=== PATIENT | female | born 1995 | race Hispanic/Latino ===

== ENCOUNTER 2021-02-07 10:42 | Emergency (ER) | payer OTHER, SELFPAY ==
--- OUTSIDE RECORDS SUMMARY | 2021-02-07 10:44 | XMS REPORT | Continuity of Care Document ---
:1995 Author Organization [facility] Address [address] [place] [address] Dr. Valenzuela [address] [place] [id number] Care Team Providers Name Role Phone Unavailable Unavailable Unavailable Problems This patient has no known problems. Allergies, Adverse Reactions, Alerts This patient has no known allergies or adverse reactions. Medications This patient has no known medications. Procedures This patient has no known procedures. Results This patient has no known results.
--- NOTE | 2021-02-07 12:24 | EDPHYS ---
Physician Documentation [facility] Name: Esha Augustine Age: 25 yrs Sex: Female : 1995 Arrival Date: 02/07/2021 Time: 10:46 Bed 23 Private MD: [place] Physician Georgi Perez HPI: 02/07 12:22 This 25 yrs old Female presents to ER via Ambulatory with complaints of jmm Headache, Ear Pain. 12:22 The patient presents with pain. Onset: The symptoms/episode began/occurred gradually, 2 jmm day(s) ago. Modifying factors: The symptoms are alleviated by nothing, the symptoms are aggravated by nothing. Associated signs and symptoms: Pertinent positives: sore throat. The patient has not experienced similar symptoms in the past. 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 ROS: 12:22 Constitutional: Negative for fever, chills, and weight loss, Cardiovascular: Negative jmm for chest pain, palpitations, and edema, Respiratory: Negative for shortness of breath, cough, wheezing, and pleuritic chest pain. 12:22 ENT: Positive for ear pain, sore throat. 12:22 Neuro: Positive for headache. 12:22 All other systems are negative. Exam: 12:22 Constitutional: This is a well developed, well nourished patient who is awake, alert, jmm and in no acute distress. Head/Face: atraumatic. Eyes: EOMI, no conjunctival erythema appreciated 12:22 Neck: Trachea midline, Supple Chest/axilla: Normal chest wall appearance and motion. Cardiovascular: Regular rate and rhythm. No edema appreciated Respiratory: Normal respirations, no respiratory distress appreciated Abdomen/GI: Non distended, soft Back: Normal ROM Skin: General appearance color normal MS/ Extremity: Moves all extremities, no obvious deformities appreciated, no edema noted to the lower extremities Neuro: Awake and alert, normal gait Psych: Behavior is normal, Mood is normal, Patient is cooperative and pleasant 12:22 ENT: TM's: erythema, that is moderate, on the right, Posterior pharynx: erythema, that is mild. Vital Signs: 11:25 BP 104 / 59; Pulse 84; Resp 16 S; Temp 97.8(TE); Pulse Ox 99% on R/A; Weight 108.86 kg ca1 (R); Height 5 ft. 4 in. (162.56 cm) (R); Pain 8/10; 11:25 Body Mass Index 41.20 (108.86 kg, 162.56 cm) ca1 MDM: 11:34 Patient medically screened. [facility] 12:23 Data reviewed: vital signs, nurses notes. Data interpreted:. Counseling: I had a rodrigo detailed discussion with the patient and/or guardian regarding: the historical points, exam findings, and any diagnostic results supporting the discharge/admit diagnosis, the need for outpatient follow up, to return to the emergency department if symptoms worsen or persist or if there are any questions or concerns that arise at home. ED course: Patient is alert and non toxic in appearance in the ED. PE consistent with OM. Advised to follow up with OB and otherwise given strict return precautions. Patient understood and agrees with the plan of care. . Administered Medications: No medications were administered Disposition: 02/08 09:38 Co-signature as Attending Physician, Georgi Perez MD I agree with the assessment and [facility] plan of care. Disposition: 02/07/21 12:24 Discharged to Home. Impression: Acute serous otitis media. - Condition is Stable. - Discharge Instructions: Otitis Media, Adult. - Prescriptions for Amoxicillin 875 mg Oral Tablet - take 1 tablet by ORAL route every 12 hours for 10 days; 20 tablet. - Work release form, Medication Reconciliation Form, Thank You Letter, Antibiotic Education, Prescription Opioid Use form. - Follow up: Private Physician; When: 2 - 3 days; Reason: Recheck today's complaints, Continuance of care, Re-evaluation by your physician. Signatures: Georgi Perez MD MD cha Mickail, Joel, PA PA jmm Williams, Irene, RN RN iw Sue Brooks RN RN ca1 Corrections: (The following items were deleted from the chart) 02/07 12:33 12:24 02/07/2021 12:24 Discharged to Home. Impression: Acute serous otitis media. iw Condition is Stable. Forms are Medication Reconciliation Form, Thank You Letter, Antibiotic Education, Prescription Opioid Use. Follow up: Private Physician; When: 2 - 3 days; Reason: Recheck today's complaints, Continuance of care, Re-evaluation by your physician. rodrigo
--- NOTE | 2021-02-07 12:24 | ER ---
Nurse's Notes [facility] Name: Esha Augustine Age: 25 yrs Sex: Female : 1995 Arrival Date: 02/07/2021 Time: 10:46 Bed 23 Private MD: Diagnosis: Acute serous otitis media Presentation: 02/07 11:25 Chief complaint: Patient states: R ear pain started 0300 today. Pain radiates to the R ca1 jaw, R side of the neck, R side face, R side of the head. Denies fever. Coronavirus screen: Client denies travel out of the [place] in the last 14 days. At this time, the client does not indicate any symptoms associated with coronavirus-19. Ebola Screen: Patient negative for fever greater than or equal to 101.5 degrees Fahrenheit, and additional compatible Ebola Virus Disease symptoms Patient denies exposure to infectious person. Patient denies travel to an Ebola-affected area in the 21 days before illness onset. No symptoms or risks identified at this time. Initial Sepsis Screen: Does the patient meet any 2 criteria? No. Patient's initial sepsis screen is negative. Does the patient have a suspected source of infection? No. Patient's initial sepsis screen is negative. Risk Assessment: Do you want to hurt yourself or someone else? Patient reports no desire to harm self or others. Onset of symptoms was February 07, 2021. 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 Vital Signs: 11:25 BP 104 / 59; Pulse 84; Resp 16 S; Temp 97.8(TE); Pulse Ox 99% on R/A; Weight 108.86 kg ca1 (R); Height 5 ft. 4 in. (162.56 cm) (R); Pain 8/10; 11:25 Body Mass Index 41.20 (108.86 kg, 162.56 cm) ca1 ED Course: 10:46 Patient arrived in ED. mr 11:27 Triage completed. ca1 11:28 Arm band placed on right wrist. ca1 11:31 Minesh Parmar PA is PHCP. [facility] 11:31 Georgi Perez MD is Attending Physician. [facility] 12:33 Adilene Brennan, RN is Primary Nurse. iw Administered Medications: No medications were administered Outcome: 12:24 Discharge ordered by . [facility] 12:33 Patient left the ED. iw Signatures: Minesh Parmar PA PA yousif Isabel Green mr Adilene Brennan, RN RN iw Sue Brooks RN RN ca1
[2021-02-07 21:04] VITALS: BP 104/59; TEMP 97.8; O2SAT 99
== END 2021-02-07 12:33 | disposition home or self-care (01) ==
LOC: ER 10:42
DX: H65.01 Acute serous otitis media, right ear (principal)
CPT/HCPCS: 99281

== ENCOUNTER 2022-08-21 08:36 | Emergency (ER) | payer OTHER ==
--- OUTSIDE RECORDS SUMMARY | 2022-08-21 08:40 | XMS REPORT | Continuity of Care Document ---
:1995 Author Organization [facility] t Address [address] [place] [address] Dr. [address]. [address] [place] [address] Care Team Providers Name Role Phone ADALGISA SHAHBAZ A Primary Care Physician Unavailable DONY SADLER Attending Clinician Unavailable ANTHONY MAN Attending Clinician Unavailable Anthony Man MD Attending Clinician MIGEL GUTIERREZ Attending Clinician Unavailable Antonio Qureshi MD Attending Clinician Unavailable Tim Durant Attending Clinician Unavailable Payers Payer Name Policy Type Policy Number Effective Date Expiration Date S aruna [facility] [id number] 2021 00:00:00 Problems Condition Condition Condition Status Onset Resolution Last Treating Co mments Source Name Details Category Date Date Treatment Clinician Date Epigastric Epigastric Disease Active Overview : Univers pain pain 3-07 Formattin ity of 00:00: g of this [place] 00 note Medical might be Branch different from the original. Added automatic ally from request for surgery [id number] Gastroesop Gastroesop Disease Active Overview : Univers hageal hageal 3-07 Formattin ity of reflux reflux 00:00: g of this [place] disease disease 00 note Medical with with might be Branch esophagiti esophagiti different s, s, from the unspecifie unspecifie original. d whether d whether Added hemorrhage hemorrhage automatic ally from request for surgery [id number] Obesity Obesity Disease Active Univers (BMI (BMI 2-23 ity of 30-39.9) 30-39.9) 00:00: Medical Branch Vitamin D Vitamin D Disease Active 2020-11 Uni vers deficiency deficiency 2-16 it y of 00:00: Medical Branch Left Left Disease Active 2020-11 Univers breast breast 1- ity of mass mass 00:00: Medical Branch Biliary Biliary Disease Active Overview: Univ ers colic colic 9-13 Formattin ity of 00:00: g of this note Medical might be Branch different from the original. 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 Reactive Reactive Disease Active Unive rs depression depression 8-17 it y of 00:: Medical Branch Gallstones Gallstones Disease Active U nivers 8-16 ity of 00:00: Medical Branch BMI BMI Disease Active Univers 40.0-44.9, 40.0-44.9, 2-09 it y of adult adult 00:00: [facility] Branch Migraines Migraines Disease Active Uni vers ity of [facility] Allergies, Adverse Reactions, Alerts Allergy Allergy Status Severity Reaction(s) Onset Inactive Treating Comm ents Source Name Type Date Date Clinician No Known DA Active U [facility] Drug 6-02 Allergie 00:00: NO KNOWN Drug Active Univers ALLERGIE Class ity of S [facility] Social History Social Habit Start Date Stop Date Quantity Comments Source History SDOH University o f Alcohol Frequency [place] M edical Branch History SDOH University o f Alcohol Std [place] Medical Drinks Branch History SDNY University o f Alcohol Binge [place] Medic al Branch Exposure to 2022-03-10 2022-03-20 Not sure University of SARS-CoV-2 00:00:00 10:33:00 [facility] (event) Branch Alcohol intake 2022-03-20 2022-03-20 0 /d University of 00:00:00 00:00:00 [facility] Tobacco use and 2021-07-05 2021-07-05 Smokeless tobacco Un iversity of exposure 00:00:00 00:00:00 non-user [facility] Alcohol Comment 2021-07-05 2021-07-05 Occasionally Univers ity of 00:00:00 00:00:00 [facility] Sex Assigned At [birth year] [facility] 00:00:00 00:00:00 Smoking Status Start Date Stop Date Source Unknown if ever smoked [facility] Never smoked tobacco [facility] Medications Ordered Filled Start Stop Current Ordering Indication Dosage Frequency Signature Comments Components Source Medication Medication Date Date Medication? Clinician (SIG) Name Name pantoprazol Yes [id number] 20mg Take 1 Univers e 20 mg EC 8-16 tablet by ity of tablet 00:00: mouth in [place] 00 the Medical morning. Branch Bismuth Yes [id number] 15mL Take 15 mL Univers Subsalicyla 4-04 by mouth 4 it y of te 00:00: ([facility]) [place] (PEPTO-BISM 00 times Medical OL [address]) daily. Branch 525 mg/15 mL suspension clarithromy 0 Yes [id number] 500mg Take 2 Univers kim 250 mg 4-04 tablets by ity of tablet 00:00: mouth 2 [place] (two) Medical times Branch daily. metroNIDAZO 2021-0 Yes [id number] 500mg Take 1 Univers LE 500 mg 4-04 tablet by ity o f tablet 00:00: mouth [place] 00 every 12 Medical (twelve) Branch hours. Bismuth 2021-0 Yes [id number] 15mL Take 15 mL Univers Subsalicyla 4-04 by mouth 4 it y of te 00:00: (four) [place] (PEPTO-BISM 00 times Medical OL MAX ST) daily. Branch 525 mg/15 mL suspension clarithromy 2021-0 Yes [id number] 500mg Take 2 Univers kim 250 mg 4-04 tablets by ity of tablet 00:00: mouth 2 [place] (two) Medical times Branch daily. metroNIDAZO 2-0 Yes [id number] 500mg Take 1 Univers LE 500 mg 4-04 tablet by ity o f tablet 00:00: mouth [place] 00 every 12 Medical (twelve) Branch hours. PANTOPRAZOL 2021-0 Yes [id number] 20mg TAKE 1 Univers E 20 mg EC 3-01 TABLET BY ity of tablet 00:00: MOUTH [place] 00 DAILY Medical Branch PANTOPRAZOL 2021- No [id number] 20mg TAKE 1 Univers E 20 mg EC 3-01 08-16 TABLET BY ity of tablet 00:00: 00:00 MOUTH [place] 00 :00 DAILY Medical Branch Cholecalcif 2020-11 Yes [id number] 1999U Take 1 Univers justin, 2-16 capsule by ity of Vitamin D3, 00:00: mouth (D3-1999) 00 daily. Medical 50 mcg Take with Branch (2,000 food unit) capsule cyclobenzap 2020-11 Yes [id number] 5mg Take 1 Univers rine 5 mg 2-16 tablet by ity o f tablet 00:00: mouth 3 (three) Medical times Branch daily as needed for Muscle Spasms. Cholecalcif 2020-11 Yes [id number] 1999U Take 1 Univers justin, 2-16 capsule by ity of Vitamin D3, 00:00: mouth (D3) 00 daily. Medical 50 mcg Take with Branch (2,000 food unit) capsule cyclobenzap 2020-11 Yes [id number] 5mg Take 1 Univers rine 5 mg 2-16 tablet by ity o f tablet 00:00: mouth 3 (three) Medical times Branch daily as needed for Muscle Spasms. amitriptyli Yes [id number] 10mg Take 1 Univers ne 10 mg 8-10 tablet by ity of tablet 00:00: mouth at [place] bedtime. Medical Branch SUMAtriptan Yes [id number] Take 1 tab Univers 25 mg 8-10 po x 1 ity of tablet 00:00: dose PRN migraine Medical headache, Branch may repeat x 1 dose in 2 hours if needed; Max 2 doses per 24 hours amitriptyli Yes [id number] 10mg Take 1 Univers ne 10 mg 8-10 tablet by ity of tablet 00:00: mouth at [place] bedtime. Medical Branch SUMAtriptan Yes [id number] Take 1 tab Univers 25 mg 8-10 po x 1 ity of tablet 00:00: dose PRN migraine Medical headache, Branch may repeat x 1 dose in 2 hours if needed; Max 2 doses per 24 hours Immunizations Ordered Filled Immunization Date Status Comments Sourc e Immunization Name Name Influenza Virus 2021-11-03 Completed Universit y of Vaccine Quad IM, 00:00:00 [place] Me dical Preserv and ABX Branch Free 6 MO-64 YRS Influenza Virus 2021-11-03 Completed Universit y of Vaccine Quad IM, 00:00:00 [facility] dical Preserv and ABX Branch Free 6 MO-64 YRS SARS-COV-2 COVID-19 2021-06-10 Completed Unive rsity of MODERNA VACCINE 00:00:00 [facility] SARS-COV-2 COVID-19 2021-06-10 Completed Unive rsity of MODERNA VACCINE 00:00:00 [facility] SARS-COV-2 COVID-19 2021-05-13 Completed Unive rsity of MODERNA VACCINE 00:00:00 [facility] SARS-COV-2 COVID-19 2021-05-13 Completed Unive rsity of MODERNA VACCINE 00:00:00 [facility] Influenza Virus 2021-01-04 Completed Universit y of Vaccine Quad .5 mL 00:00:00 [facility] IM 6+ MO Branch Influenza Virus 2021-01-04 Completed Universit y of Vaccine Quad .5 mL 00:00:00 [facility] IM 6+ MO Branch TDAP 2017-10-15 Completed [facility] 00:00:00 [facility] TDAP 2017-10-15 Completed [facility] 00:00:00 [facility] Vital Signs Vital Name Observation Time Observation Value Comments Source Systolic blood 2022-03-20 15:58:00 112 mm[Hg] Univer sity of pressure [facility] Diastolic blood 2022-03-20 15:58:00 74 mm[Hg] Unive rsity of pressure [facility] Heart rate 2022-03-20 15:58:00 80 /min [facility] Body temperature 2022-03-20 15:58:00 36.78 [facility] Respiratory rate 2022-03-20 15:58:00 16 /min [facility] Body height 2022-03-20 15:58:00 162.6 cm [facility] Body weight 2022-03-20 15:58:00 105.416 kg [facility] BMI 2022-03-20 15:58:00 39.89 kg/m2 Universi ty of [facility] Oxygen saturation in 2022-03-20 15:58:00 99 /min University of Arterial blood by [facility] Pulse oximetry Branch Have you Lost Weight 2021-05-02 00:18:32 No Without Trying in the Past 6 Months? Attempted 2021-05-02 00:18:32 N Body Mass Index 2021-05-02 00:18:32 41.5 Height 2021-05-02 00:18:32 162.56\S\64 Pulse Rate 2021-05-02 00:18:32 82 /min Pulse Rate 2021-05-02 00:18:32 82 /min Respiratory Rate 2021-05-02 00:18:32 18 /min Respiratory Rate 2021-05-02 00:18:32 18 /min Respiratory Depth 2021-05-02 00:18:32 Normal /min Respiratory Effort 2021-05-02 00:18:32 Spontaneous /min Respiratory Pattern 2021-05-02 00:18:32 Normal /min Temperature 2021-05-02 00:18:32 36.8\S\98.2 Weight 2021-05-02 00:18:32 802122.353\S\3872 Weight Measurement 2021-05-02 00:18:32 Standing Scale Method Initial DRG Weight: 2021-05-02 00:18:32 0.6411 Working DRG Weight: 2021-05-02 00:18:32 0.6411 Initial DRG Weight: 2021-04-29 15:52:40 0.6411 Working DRG Weight: 2021-04-29 15:52:40 0.6411 Have you Lost Weight 2021-04-29 15:52:40 No Without Trying in the Past 6 Months? Attempted 2021-04-29 15:52:40 N Body Mass Index 2021-04-29 15:52:40 41.5 Height 2021-04-29 15:52:40 162.56\S\64 Pulse Rate 2021-04-29 15:52:40 82 /min Pulse Rate 2021-04-29 15:52:40 82 /min Respiratory Rate 2021-04-29 15:52:40 18 /min Respiratory Rate 2021-04-29 15:52:40 18 /min Respiratory Depth 2021-04-29 15:52:40 Normal /min Respiratory Effort 2021-04-29 15:52:40 Spontaneous /min Respiratory Pattern 2021-04-29 15:52:40 Normal /min Temperature 2021-04-29 15:52:40 36.8\S\98.2 Weight 2021-04-29 15:52:40 357771.353\S\3872 Weight Measurement 2021-04-29 15:52:40 Standing Scale Method Body Mass Index 2021-04-28 10:14:19 41.5 Height 2021-04-28 10:14:19 162.56\S\64 Pulse Rate 2021-04-28 10:14:19 82 /min Pulse Rate 2021-04-28 10:14:19 82 /min Respiratory Rate 2021-04-28 10:14:19 18 /min Respiratory Rate 2021-04-28 10:14:19 18 /min Respiratory Depth 2021-04-28 10:14:19 Normal /min Respiratory Effort 2021-04-28 10:14:19 Spontaneous /min Respiratory Pattern 2021-04-28 10:14:19 Normal /min Temperature 2021-04-28 10:14:19 36.8\S\98.2 Weight 2021-04-28 10:14:19 527602.353\S\3872 Weight Measurement 2021-04-28 10:14:19 Standing Scale Method Initial DRG Weight: 2021-04-28 10:14:19 0.6411 Working DRG Weight: 2021-04-28 10:14:19 0.6411 Have you Lost Weight 2021-04-28 10:14:19 No Without Trying in the Past 6 Months? Attempted 2021-04-28 10:14:19 N Initial DRG Weight: 2021-04-28 06:32:43 0.6411 Working DRG Weight: 2021-04-28 06:32:43 0.6411 Have you Lost Weight 2021-04-28 06:32:43 No Without Trying in the Past 6 Months? Attempted 2021-04-28 06:32:43 N Body Mass Index 2021-04-28 06:32:43 41.5 Height 2021-04-28 06:32:43 162.56\S\64 Respiratory Rate 2021-04-28 06:32:43 18 /min Respiratory Depth 2021-04-28 06:32:43 Normal /min Respiratory Effort 2021-04-28 06:32:43 Spontaneous /min Respiratory Pattern 2021-04-28 06:32:43 Normal /min Weight 2021-04-28 06:32:43 116083.353\S\3872 Weight Measurement 2021-04-28 06:32:43 Standing Scale Method Have you Lost Weight 2021-04-28 00:20:54 No Without Trying in the Past 6 Months? Attempted 2021-04-28 00:20:54 N Body Mass Index 2021-04-28 00:20:54 41.5 Height 2021-04-28 00:20:54 162.56\S\64 Respiratory Rate 2021-04-28 00:20:54 18 /min Respiratory Depth 2021-04-28 00:20:54 Normal /min Respiratory Effort 2021-04-28 00:20:54 Spontaneous /min Respiratory Pattern 2021-04-28 00:20:54 Normal /min Weight 2021-04-28 00:20:54 819285.353\S\3872 Weight Measurement 2021-04-28 00:20:54 Standing Scale Method Initial DRG Weight: 2021-04-28 00:20:53 0.6411 Working DRG Weight: 2021-04-28 00:20:53 0.6411 Have you Lost Weight 2021-04-28 00:19:52 No Without Trying in the Past 6 Months? Attempted 2021-04-28 00:19:52 N Body Mass Index 2021-04-28 00:19:52 41.5 Height 2021-04-28 00:19:52 162.56\S\64 Respiratory Rate 2021-04-28 00:19:52 18 /min Respiratory Depth 2021-04-28 00:19:52 Normal /min Respiratory Effort 2021-04-28 00:19:52 Spontaneous /min Respiratory Pattern 2021-04-28 00:19:52 Normal /min Weight 2021-04-28 00:19:52 746297.353\S\3872 Weight Measurement 2021-04-28 00:19:52 Standing Scale Method Have you Lost Weight 2021-04-27 21:08:37 No Without Trying in the Past 6 Months? Attempted 2021-04-27 21:08:37 N Body Mass Index 2021-04-27 21:08:37 41.5 Height 2021-04-27 21:08:37 162.56\S\64 Respiratory Rate 2021-04-27 21:08:37 18 /min Respiratory Effort 2021-04-27 21:08:37 Spontaneous /min Respiratory Pattern 2021-04-27 21:08:37 Normal /min Weight 2021-04-27 21:08:37 805480.353\S\3872 Weight Measurement 2021-04-27 21:08:37 Standing Scale Method Have you Lost Weight 2021-04-27 18:46:24 No Without Trying in the Past 6 Months? Body Mass Index 2021-04-27 18:46:24 41.5 Height 2021-04-27 18:46:24 162.56\S\64 Respiratory Rate 2021-04-27 18:46:24 18 /min Respiratory Effort 2021-04-27 18:46:24 Spontaneous /min Respiratory Pattern 2021-04-27 18:46:24 Normal /min Weight 2021-04-27 18:46:24 964799.353\S\3872 Weight Measurement 2021-04-27 18:46:24 Standing Scale Method Have you Lost Weight 2021-04-27 08:56:53 No Without Trying in the Past 6 Months? Body Mass Index 2021-04-27 08:56:53 41.5 Height 2021-04-27 08:56:53 162.56\S\64 Respiratory Effort 2021-04-27 08:56:53 Spontaneous /min Respiratory Pattern 2021-04-27 08:56:53 Normal /min Weight 2021-04-27 08:56:53 528742.353\S\3872 Weight Measurement 2021-04-27 08:56:53 Standing Scale Method Have you Lost Weight 2021-04-27 08:54:20 No Without Trying in the Past 6 Months? Respiratory Effort 2021-04-27 08:54:20 Spontaneous /min Respiratory Pattern 2021-04-27 08:54:20 Normal /min WEIGHT 2021-04-27 08:40:00 109.294855 kg HEIGHT 2021-04-27 08:40:00 162.56 cm Procedures This patient has no known procedures. Encounters Start End Encounter Admission Attending Care Care Encounter Source Date/Time Date/Time Type Type Clinicians Facility Department ID 2022-07-19 2022-07-19 Outpatient Sally SADLER DONY [facility] [id number] 2A-20 Univers 10:30:00 10:30:00 [id number] [facility] 2022-07-19 2022-07-19 Outpatient Sally VIKTORIYA [facility] [id number] Univers 10:30:00 10:30:00 [facility] 2022-07-04 2022-07-04 Outpatient Sally MAN [facility] [id number] 2A-20 Univers 16:15:00 16:15:00 ANTHONY [id number] [facility] 2022-07-04 2022-07-04 Outpatient Sally MAN [facility] [id number] Univers 16:15:00 16:15:00 ANTHONY [facility] 2022-06-30 2022-06-30 [facility] [id number] Univers 00:00:00 00:00:00 Anthony WELCH [id number] i [facility] [id number] [id number] Nh dical NAL [facility] Branch [facility] 2022-05-30 2022-05-30 Outpatient Sally GUTIERREZ [facility] [id number] 2A-20 Univers 15:30:00 15:30:00 MIGEL [id number] [facility] 2022-05-30 2022-05-30 [facility] [id number] Univers 15:30:00 15:30:00 MIGEL [facility] 2022-05-23 2022-05-23 Outpatient Sally GUTIERREZ [facility] [id number] 2A-20 Univers 14:15:00 14:15:00 MIGEL [id number] [facility] 2022-05-23 2022-05-23 Outpatient Sally GUTIERREZ [facility] [id number] [facility] 14:15:00 14:15:00 MIGEL cohen [facility] 2022-03-20 2022-03-20 Office Man, [facility] [id number] [facility] 11:00:00 11:28:29 Visit Anthony WELCH [id number] i [facility] [id number] [facility] [id number] Nh dical [address] 2021-05-11 2021-05-11 Telephone [facility] [id number] 00:00:00 00:00:00 Antoniosolomon VALDEZANDERSON [id number] MEDICAL [id number] [facility] [id number] 2021-05-11 2021-05-11 Telephone [facility] [id number] [place] 00:00:00 00:00:00 Antoniosolomon VALDEZEfren [id number] H [facility] MEDICAL [id number] [facility] [id number] 2021-05-03 2021-05-03 Telephone [facility] [id number] 00:00:00 00:00:00 Antonio CRAVEN [id number] MEDICAL [id number] [facility] [id number] 2021-05-03 2021-05-03 Telephone [facility] [id number] [place] 00:00:00 00:00:00 Antonio CRAVEN [id number] H [facility] [id number] [facility] [id number] 2021-04-27 2021-04-27 Outpatient [facility] [id number] [facility] 07:17:00 07:17:00 62 2021-04-27 2021-04-27 Outpatient Elective [place], [facility] [id number] [facility] 07:17:00 07:17:00 Tim 62 Results Test Description Test Time Test Comments Results Result Comments Source Complete Blood Count Auto Diff 2021-04-28 06:20:00 Test Item Value Reference Range Interpretation Comme nts White Blood Count (test code = WBCT) 8.2 x10 3/uL 4.4-10.5 N Red Blood Count (test code = RBC) 3.85 x10 6/uL 3.75-5.20 N Hemoglobin (test code = HGBT) 11.7 g/dL 12.2-14.8 L Hematocrit (test code = HCTT) 34.8 % 36.5-44.4 L Mean Corpuscular Volume (test code = MCV) 90.40 fL 80.00-100.00 N Mean Corpuscular Hemoglobin (test code = MCH) 30.4 pg 27.0-32. 5 N Mean Corpuscular HGB Conc (test code = MCHC) 33.60 g/dL 32.00-37. 50 N RDW Coefficient of Variation (test code = RDWCV) 12.4 % 11.5- 14.5 N Platelet Count (test code = PLTT) 255.0 x10 3/uL 140.0-440.0 N Mean Platelet Volume (test code = MPV) 10.2 fL Immature Granulocytes % (Auto) (test code = IMMGRAN%) 0.4 % 0.0-5.0 N Neutrophils % (Auto) (test code = NE%) 64.0 % 36.0-70.0 N Lymphocytes % (Auto) (test code = LY%) 25.3 % 12.0-44.0 N Monocytes % (Auto) (test code = MO%) 9.0 % 0.0-11.0 N Eosinophils % (Auto) (test code = EO%) 1.2 % 0.0-7.0 N Basophils % (Auto) (test code = BA%) 0.1 % 0.0-2.0 N Immature Granulocytes # (Auto) (test code = IMMGRAN#) 0.03 x10 3/uL Neutrophils # (Auto) (test code = NE#) 5.3 x10 3/uL 1.6-7.4 N Lymphocytes # (Auto) (test code = LY#) 2.08 x10 3/uL 0.50-4.60 N Monocytes # (Auto) (test code = MO#) 0.74 x10 3/uL 0.00-1.20 N Eosinophils # (Auto) (test code = EO#) 0.10 x10 3/uL 0.00-0.74 N Basophils # (Auto) (test code = BA#) 0.01 x10 3/uL 0.00-0.21 N nRBC Abs (test code = NRBCA) 0 nRBC Pct (test code = NRBCP) 0 % Coronavirus PCR, COVID19 [id number] 11:15:00 Test Item Value Reference Range Interpretation Comments Coronavirus PCR, For use under Emergency COVID19 Rapid (test Use Authorization (EUA) code = SARSCOV2) only. Coronavirus PCR, Reference Range: COVID19 Rapid (test Negative code = QTGCCZS50.1) SARS-CoV-2 PCR Result: Negative by PCR (test code = SARS-CoV-2 PCR Result:) COVID-19 Status: AsymptomaticRapid Plasma [id number] 08:35:00 Test Item Value Reference Range Interpretation Comments Rapid Plasma Non-Reactive Non-React RPR Lot: [id number] RPR Exp: Reagin (test code 12-26-2C ontrolsReacti = RPR) ve: ReactiveWea k Reactive: ReactiveNon-ivana ctive: Non-reactive Hepatitis B Surface [id number] 08:35:00 Test Item Value Reference Range Interpretation Comments Hepatitis B Surface Antigen Non-Reactive NonReactive (test code = HBSAG) Complete Blood Count w/o [id number] 08:35:00 Test Item Value Reference Range Interpretation Comments White Blood Count (test code = 8.9 x10 3/uL 4.4-10.5 N WBCT) Red Blood Count (test code = 4.30 x10 6/uL 3.75-5.20 N RBC) Hemoglobin (test code = HGBT) 12.8 g/dL 12.2-14.8 N Hematocrit (test code = HCTT) 37.5 % 36.5-44.4 N Mean Corpuscular Volume (test 87.20 fL 80.00-100.00 N code = MCV) Mean Corpuscular Hemoglobin 29.8 pg 27.0-32.5 N (test code = MCH) Mean Corpuscular HGB Conc 34.10 g/dL 32.00-37.50 N (test code = MCHC) RDW Coefficient of Variation 12.5 % 11.5-14.5 N (test code = RDWCV) Platelet Count (test code = 310.0 x10 3/uL 140.0-440.0 N PLTT) Mean Platelet Volume (test 10.8 fL code = MPV) nRBC Abs (test code = NRBCA) 0 nRBC Pct (test code = NRBCP) 0 %
--- NOTE | 2022-08-21 08:57 | ER ---
Nurse's Notes [facility] Name: Esha Augustine Age: 27 yrs Sex: Female : 1995 Arrival Date: 08/21/2022 Time: 08:39 Bed 10 Private MD: Diagnosis: Other mucopurulent conjunctivitis, right eye;Disease of upper respiratory tract, unspecified Presentation: 08/21 08:44 Chief complaint: Patient states: Woke with right eye swollen shut with discharge, sore jl7 throat and head pressure since this morning. Coronavirus screen: Vaccine status: Patient reports receiving the 2nd dose of the covid vaccine. Ebola Screen: No symptoms or risks identified at this time. Initial Sepsis Screen: Does the patient meet any 2 criteria? No. Patient's initial sepsis screen is negative. Does the patient have a suspected source of infection? No. Patient's initial sepsis screen is negative. Risk Assessment: Do you want to hurt yourself or someone else? Patient reports no desire to harm self or others. Onset of symptoms was August 21, 2022. 08:44 Method Of Arrival: Ambulatory jl7 08:44 Acuity: JUSTYNA 4 jl7 Triage Assessment: 08:46 General: Appears in no apparent distress. uncomfortable, Behavior is calm, cooperative, jl7 appropriate for age. Pain: Complains of pain in face and right eye Pain currently is 8 out of 10 on a pain scale. EENT: Eyes are tearing on right eye Sclera/Cornea are reddened in right eye. Neuro: Level of Consciousness is awake, alert, obeys commands, Oriented to person, place, time, situation. DIFFERENTIAL TESTER: 08:46 LMP 08/21/2022 jl7 Historical: - Allergies: 08:46 No Known Allergies; jl7 - Home Meds: 08:46 None [Active]; jl7 - PMHx: 08:46 None; jl7 - PSHx: 08:46 None; jl7 - Immunization history:: Client reports receiving the 2nd dose of the Covid vaccine. - Social history:: Smoking status: Patient denies any tobacco usage or history of. Screenin:45 Abuse screen: Denies threats or abuse. Denies injuries from another. Nutritional jl7 screening: No deficits noted. Tuberculosis screening: No symptoms or risk factors identified. Fall Risk None identified. Assessment: 08:45 Reassessment: DANI Sanchez in triage assessing pt. 7 09:17 Reassessment: Patient appears in no apparent distress at this time. Patient and/or vg1 family updated on plan of care and expected duration. Pain level reassessed. Patient is alert, oriented x 3, equal unlabored respirations, skin warm/dry/pink. Vital Signs: 08:44 BP 137 / 71; Pulse 66; Resp 17; Temp 98.2; Pulse Ox 100% ; Weight 104.33 kg; Height 5 7 ft. 4 in. (162.56 cm); Pain 8/10; 08:44 Body Mass Index 39.48 (104.33 kg, 162.56 cm) 7 ED Course: 08:39 Patient arrived in ED. 4 08:43 [facility] 7 08:43 Clayton Ashby DO is Attending Physician. 7 08:45 Patient has correct armband on for positive identification. 7 08:45 COVID swab sent to lab. jl7 08:46 Triage completed. jl7 08:46 Arm band placed on right wrist. jl7 09:17 No provider procedures requiring assistance completed. Patient did not have IV access vg1 during this emergency room visit. Administered Medications: No medications were administered Medication: 08:45 VIS not applicable for this client. 7 Outcome: 08:56 Discharge ordered by . 7 09:17 Discharged to home ambulatory. vg1 09:17 Condition: good 09:17 Discharge instructions given to patient, Instructed on discharge instructions, follow up and referral plans. medication usage, Demonstrated understanding of instructions, follow-up care, medications, Prescriptions given X 1. 09:18 Patient left the ED. vg1 Signatures: Roz Gonzalez rg4 Libia Kirkpatrick RN RN jl7 Marie Gonzaelz RN RN vg1 Laura French FNP FNP [facility]
--- NOTE | 2022-08-21 08:57 | EDPHYS ---
Physician Documentation [facility] Name: Esha Augustine Age: 27 yrs Sex: Female : 1995 Arrival Date: 08/21/2022 Time: 08:39 Bed 10 Private MD: ED Physician Clayton Ashby HPI: 08/21 08:52 This 27 yrs old Female presents to ER via Ambulatory with complaints of Eye jh7 Swelling. 08:52 The patient is experiencing burning, matting or discharge, redness, to the right eye. jh7 Onset: The symptoms/episode began/occurred this morning. Associated signs and symptoms: Pertinent positives: runny nose, Sore throat. Patient presents with right eye redness, crusting, and tearing since this morning. Also reports sore throat and congestion. Reports that her daughter had COVID last week.. P[employer]ER: 08:46 LMP 08/21/2022 jl7 Historical: - Allergies: 08:46 No Known Allergies; jl7 - Home Meds: 08:46 None [Active]; jl7 - PMHx: 08:46 None; jl7 - PSHx: 08:46 None; jl7 - Immunization history:: Client reports receiving the 2nd dose of the Covid vaccine. - Social history:: Smoking status: Patient denies any tobacco usage or history of. ROS: 08:52 Constitutional: Negative for fever, chills, and weight loss, ENT: Negative for injury, jh7 pain, and discharge, Neck: Negative for injury, pain, and swelling, Cardiovascular: Negative for chest pain, palpitations, and edema, Respiratory: Negative for shortness of breath, cough, wheezing, and pleuritic chest pain, Back: Negative for injury and pain, Skin: Negative for injury, rash, and discoloration, Neuro: Negative for headache, weakness, numbness, tingling, and seizure. 08:52 Eyes: Positive for itching, matting, redness, tearing, Negative for blurry vision, vision loss, visual disturbance. 08:52 All other systems are negative. Exam: 08:52 Head/Face: Normocephalic, atraumatic. Cardiovascular: Regular rate and rhythm with a jh7 normal S1 and S2. No gallops, murmurs, or rubs. Normal PMI, no JVD. No pulse deficits. Respiratory: Lungs have equal breath sounds bilaterally, clear to auscultation and percussion. No rales, rhonchi or wheezes noted. No increased work of breathing, no retractions or nasal flaring. Abdomen/GI: Soft, non-tender, with normal bowel sounds. No distension or tympany. No guarding or rebound. No evidence of tenderness throughout. Skin: Warm, dry with normal turgor. Normal color with no rashes, no lesions, and no evidence of cellulitis. MS/ Extremity: Pulses equal, no cyanosis. Neurovascular intact. Full, normal range of motion. Neuro: Awake and alert, GCS 15, oriented to person, place, time, and situation. Motor strength 5/5 in all extremities. Sensory grossly intact. Normal gait. 08:52 Eyes: Periorbital structures: appear normal, Pupils: equal, round, and reactive to light and accomodation, Extraocular movements: intact throughout, Conjunctiva: exudate, in the right eye, injected, in the right eye, tearing noted, Corneas: are normal, Sclera: no appreciated abnormality. 08:52 ENT: TM's: are normal, Nose: nasal drainage, and is seen coming from both nares, that is white, Posterior pharynx: Postnasal drainage. Vital Signs: 08:44 BP 137 / 71; Pulse 66; Resp 17; Temp 98.2; Pulse Ox 100% ; Weight 104.33 kg; Height 5 jl7 ft. 4 in. (162.56 cm); Pain 8/10; 08:44 Body Mass Index 39.48 (104.33 kg, 162.56 cm) [facility] MDM: 08:43 Patient medically screened. [facility] 09:48 Differential diagnosis: Material conjunctivitis, allergic conjunctivitis, upper 7 respiratory infection, COVID. Data reviewed: vital signs, nurses notes. Data interpreted: Pulse oximetry: is 100 %. Interpretation: normal. Counseling: I had a detailed discussion with the patient and/or guardian regarding: the historical points, exam findings, and any diagnostic results supporting the discharge/admit diagnosis, to return to the emergency department if symptoms worsen or persist or if there are any questions or concerns that arise at home. 08/21 08:50 Order name: COVID-19 SARS RT PCR (Document "Date of Onset" if Symptomatic); Complete jl7 Time: 09:44 Administered Medications: No medications were administered Disposition: 08/22 08:23 Co-signature as Attending Physician, Clayton Ashby DO I was immediately available on-site ms3 in the Emergency Department for consultation in the care of the patient. . Disposition Summary: 08/21/22 08:56 Discharge Ordered Location: Home [facility] Problem: new [facility] Symptoms: have improved [facility] Condition: Stable [facility] Diagnosis - Other mucopurulent conjunctivitis, right eye 7 - Disease of upper respiratory tract, unspecified [facility] Followup: [facility] - With: Private Physician - When: 2 - 3 days - Reason: Recheck today's complaints Discharge Instructions: - Discharge Summary Sheet 7 - Bacterial Conjunctivitis, Adult [facility] - Upper Respiratory Infection, Adult [facility] Forms: - Medication Reconciliation Form [facility] - Thank You Letter [facility] - Antibiotic Education [facility] - Work release form kc6 Prescriptions: - Erythromycin 5 mg/gram (0.5 %) Ophthalmic Ointment - apply 1 centimeter by OPHTHALMIC route 2-3 times daily for 7 days; 1 tube; [facility] Refills: 0, Product Selection Permitted Signatures: Dispatcher [employer] Libia Dean RN RN jl7 Clayton Ashby DO DO ms3 Laura Fernch FNP [employer] [facility]
== END 2022-08-21 09:18 | disposition home or self-care (01) ==
LOC: ER 08:36
DX: H10.021 Other mucopurulent conjunctivitis, right eye (principal); J39.9 Disease of upper respiratory tract, unspecified; Z20.822 Contact with and (suspected) exposure to COVID-19
CPT/HCPCS: 99282; U0003

== ENCOUNTER 2022-09-30 09:13 | Emergency (ER) | payer OTHER ==
--- OUTSIDE RECORDS SUMMARY | 2022-09-30 09:17 | XMS REPORT | Continuity of Care Document ---
:1995 Author Organization [facility] t Address [address] [place] [address] Care Team Providers Name Role Phone Wilfrid Diana MD Primary Care Physician [phone] DONY SADLER Attending Clinician Unavailable Dony Sadler MD Attending Clinician Nurse, [facility] Attending Clinician Unavailable ANTHONY MAN Attending Clinician Unavailable Anthony Man MD Attending Clinician CAROL ANN GUTIERREZ Attending Clinician Unavailable Only, Adc Test Attending Clinician Unavailable Doctor Unassigned, Rentz Attending Clinician Unavailable Gramm Gloria GERMAIN Attending Clinician Wilfrid Diana MD Attending Clinician 2, Adc Lab Attending Clinician Unavailable ALFONZO OWUSU Attending Clinician Unavailable ALFONZO OWUSU Attending Clinician Unavailable Alfonzo Owusu MD Attending Clinician WILFRID DIANA Attending Clinician Unavailable Lab, Ang - Db Attending Clinician Unavailable Carol Ann Gutierrez MD Attending Clinician 1, Adc Lab Attending Clinician Unavailable Brenda Morin MD Attending Clinician BRENDA MORIN Attending Clinician Unavailable Antonio Qureshi MD Attending Clinician Unavailable Tim Durant Attending Clinician Unavailable Rafiq Molina DO Attending Clinician NISHA MIR Attending Clinician Unavailable ANTHONY MAN Admitting Clinician Unavailable Anthony Man MD Admitting Clinician WILFRID DIANA Admitting Clinician Unavailable Payers Payer Name Policy Type Policy Number Effective Date Expiration Date Sonya valdovinos [facility] [id number] 2021 00:00:00 Problems Condition Condition Condition Status Onset Resolution Last Treating Co mments Source Name Details Category Date Date Treatment Clinician Date Epigastric Epigastric Disease Active Overview : Univers pain pain 3-07 Formattin ity of 00:00: g of this note Medical might be Branch different from the original. Added automatic ally from request for surgery [id number] Gastroesop Gastroesop Disease Active Overview : Univers hageal hageal 3-07 Formattin ity of reflux reflux 00:00: g of this [place] disease disease 00 note Medical with with might be Branch esophagiti esophagiti different s, s, from the unspecifie unspecifie original. d whether d whether Added hemorrhage hemorrhage automatic ally from request for surgery [id number] Obesity Obesity Disease Active Univers (BMI (BMI 2-23 ity of 30-39.9) 30-39.9) 00:00: Medical Branch Vitamin D Vitamin D Disease Active 2020-11 Uni vers deficiency deficiency 2-16 it y of 00:00: Medical Branch Left Left Disease Active 2020-11 Univers breast breast 1-01 ity of mass mass 00:00: Medical Branch Biliary Biliary Disease Active Overview: Univ ers colic colic 9-13 Formattin ity of 00:00: g of this 00 note Medical might be Branch different from the original. Added automatic ally from request for surgery [id number] Left-sided Left-sided Disease Active U nivers epistaxis, epistaxis, 8-17 [place] of recurrent recurrent 00[place] Reactive Reactive Disease Active Unive rs depression depression 8-17 it y of 00:00: [place] [facility] Gallstones Gallstones Disease Active U nivers 8-16 ity of 00:00: [place] 00 Medical [place] BMI BMI Disease Active Univers 40.0-44.9, 40.0-44.9, 2-09 it y of adult adult 00:00: [place] 00 [facility] Migraines Migraines Disease Active Uni vers ity of [facility] Allergies, Adverse Reactions, Alerts Allergy Allergy Status Severity Reaction(s) Onset Inactive Treating Comm ents Source Name Type Date Date Clinician No Known DA Active U SJm Drug 02 Allergie 00:00: s 00 NO KNOWN Drug Active Univers ALLERGIE Class ity of S [facility] Social History Social Habit Start Date Stop Date Quantity Comments Source History SDOH University o f Alcohol Frequency [place] M edical Branch History SDOH University o f Alcohol Std [place] Medical Drinks Branch History SDNC University o f Alcohol Binge [place] Medic al Branch Exposure to 2022-09-12 2022-09-22 Not sure [facility] SARS-CoV-2 00:00:00 07:46:00 [facility] (event) [place] Alcohol intake 2022-09-22 2022-09-22 0 /d University of 00:00:00 00:00:00 [facility] Tobacco use and 2021-07-05 2021-07-05 Smokeless tobacco Un iversity of exposure 00:00:00 00:00:00 non-user [facility] Alcohol Comment 2021-07-05 2021-07-05 Occasionally Univers ity of 00:00:00 00:00:00 [facility] Sex Ass[birth year] At [birth year] [facility] 00:00:00 00:00:00 Smoking Status Start Date Stop Date Source Unknown if ever smoked [facility] Never smoked tobacco [facility] Medications Ordered Filled Start Stop Current Ordering Indication Dosage Frequency Signature Comments Components Source Medication Medication Date Date Medication? Clinician (SIG) Name Name pantoprazol Yes [id number] 20mg Take 1 Univers e 20 mg EC 8-16 tablet by ity of tablet 00:00: mouth in [place] the Medical morning. Branch pantoprazol Yes [id number] 20mg Take 1 Univers e 20 mg EC 8-16 tablet by ity of tablet 00:00: mouth in [place] the Medical morning. Branch pantoprazol Yes [id number] 20mg Take 1 Univers e 20 mg EC 8-16 tablet by ity of tablet 00:00: mouth in 00 the Medical morning. Branch ID NOW 2021-0 Yes TEST Univers COVID-19 5- DIRECTED ity of TEST KIT 00:00: TODAY [place] Kit 00 Medical Branch ID NOW 2021-0 Yes TEST Univers COVID-19 - DIRECTED ity of TEST KIT 00:00: TODAY [place] Kit 00 Medical Branch Bismuth 2021-0 Yes [id number] 15mL Take 15 mL Univers Subsalicyla 4-04 by mouth 4 it y of te 00:00: (four) [place] (PEPTO-BISM 00 times Medical OL MAX ST) daily. Branch 525 mg/15 mL suspension clarithromy 2021-0 Yes [id number] 500mg Take 2 Univers kim 250 mg 4-04 tablets by ity of tablet 00:00: mouth 2 (two) Medical times Branch daily. metroNIDAZO 2021-0 Yes [id number] 500mg Take 1 Univers LE 500 mg 4-04 tablet by ity o f tablet 00:00: mouth 00 every 12 Medical (twelve) Branch hours. Bismuth 2021-0 Yes [id number] 15mL Take 15 mL Univers Subsalicyla 4-04 by mouth 4 it y of te 00:00: (four) [place] (PEPTO-BISM 00 times Medical OL MAX ST) daily. Branch 525 mg/15 mL suspension clarithromy 2021-0 Yes [id number] 500mg Take 2 Univers ikm 250 mg 4-04 tablets by ity of tablet 00:00: mouth 2 (two) Medical times Branch daily. metroNIDAZO 2-0 Yes [id number] 500mg Take 1 Univers LE 500 mg 4-04 tablet by ity o f tablet 00:00: mouth 00 every 12 Medical (twelve) Branch hours. Bismuth 2-0 Yes [id number] 15mL Take 15 mL Univers Subsalicyla 4-04 by mouth 4 it y of te 00:00: (four) [place] (PEPTO-BISM 00 times Medical OL MAX ST) daily. Branch 525 mg/15 mL suspension clarithromy 2021-0 Yes [id number] 500mg Take 2 Univers kim 250 mg 4-04 tablets by ity of tablet 00:00: mouth 2 [place] 00 (two) Medical times Branch daily. metroNIDAZO 2021-0 Yes [id number] 500mg Take 1 Univers LE 500 mg 4-04 tablet by ity o f tablet 00:00: mouth [place] 00 every 12 Medical (twelve) Branch hours. Bismuth 2021-0 Yes [id number] 15mL Take 15 mL Univers Subsalicyla 4-04 by mouth 4 it y of te 00:00: (four) [place] (PEPTO-BISM 00 times Medical OL MAX ST) daily. Branch 525 mg/15 mL suspension clarithromy 2021-0 Yes [id number] 500mg Take 2 Univers kim 250 mg 4-04 tablets by ity of tablet 00:00: mouth 2 [place] 00 (two) Medical times Branch daily. metroNIDAZO 2021-0 Yes [id number] 500mg Take 1 Univers LE 500 mg 4-04 tablet by ity o f tablet 00:00: mouth [place] 00 every 12 Medical (twelve) Branch hours. PANTOPRAZOL 0 Yes [id number] 20mg TAKE 1 Univers E 20 mg EC 3-01 TABLET BY ity of tablet 00:00: MOUTH [place] 00 DAILY Medical Branch PANTOPRAZOL 0 2021- No [id number] 20mg TAKE 1 Univers E 20 mg EC 3-01 08-16 TABLET BY ity of tablet 00:00: 00:00 MOUTH [place] 00 :00 DAILY Medical Branch Cholecalcif 2020-11 Yes [id number] 2000U Take 1 Univers justin, 2-16 capsule by ity of Vitamin D3, 00:00: mouth [place] (D3-1999) 00 daily. Medical 50 mcg Take with Branch (2,000 food unit) capsule cyclobenzap 2020-11 Yes [id number] 5mg Take 1 Univers rine 5 mg 2-16 tablet by ity o f tablet 00:00: mouth 3 [place] 00 (three) Medical times Branch daily as needed for Muscle Spasms. Cholecalcif 2020-11 Yes [id number] 2000U Take 1 Univers justin, 2-16 capsule by ity of Vitamin D3, 00:00: mouth [place] (D3-1999) 00 daily. Medical 50 mcg Take with Branch (2,000 food unit) capsule cyclobenzap 2020-11 Yes [id number] 5mg Take 1 Univers rine 5 mg 2-16 tablet by ity o f tablet 00:00: mouth 3 (three) Medical times Branch daily as needed for Muscle Spasms. Cholecalcif 2020-11 Yes [id number] 1999U Take 1 Univers justin, 2-16 capsule by ity of Vitamin D3, 00:00: mouth (D3-1999) 00 daily. Medical 50 mcg Take with Branch (2,000 food unit) capsule cyclobenzap 2020-11 Yes [id number] 5mg Take 1 Univers rine 5 mg 2-16 tablet by ity o f tablet 00:00: mouth 3 (three) Medical times Branch daily as needed for Muscle Spasms. Cholecalcif 2020-11 Yes [id number] 1999U Take 1 Univers justin, 2-16 capsule by ity of Vitamin D3, 00:00: mouth (D3-1999) 00 daily. Medical 50 mcg Take with Branch (2,000 food unit) capsule cyclobenzap 2020-11 Yes [id number] 5mg Take 1 Univers rine 5 mg 2-16 tablet by ity o f tablet 00:00: mouth 3 (three) Medical times Branch daily as needed for Muscle Spasms. amitriptyli 0 Yes [id number] 10mg Take 1 Univers ne 10 mg 8-10 tablet by ity of tablet 00:00: mouth at [place] bedtime. Medical Branch SUMAtriptan 2020-0 Yes [id number] Take 1 tab Univers 25 mg 8-10 po x 1 ity of tablet 00:00: dose PRN migraine Medical headache, Branch may repeat x 1 dose in 2 hours if needed; Max 2 doses per 24 hours amitriptyli 2020-0 Yes [id number] 10mg Take 1 Univers ne 10 mg 8-10 tablet by ity of tablet 00:00: mouth at [place] bedtime. Medical Branch SUMAtriptan 2020-0 Yes [id number] Take 1 tab Univers 25 mg 8-10 po x 1 ity of tablet 00:00: dose PRN migraine Medical headache, Branch may repeat x 1 dose in 2 hours if needed; Max 2 doses per 24 hours amitriptyli 2020-0 Yes [id number] 10mg Take 1 Univers ne 10 mg 8-10 tablet by ity of tablet 00:00: mouth at [place] 00 bedtime. Medical Branch SUMAtriptan Yes [id number] Take 1 tab Univers 25 mg 8-10 po x 1 ity of tablet 00:00: dose PRN [place] migraine Medical headache, Branch may repeat x 1 dose in 2 hours if needed; Max 2 doses per 24 hours amitriptyli Yes [id number] 10mg Take 1 Univers ne 10 mg 8-10 tablet by ity of tablet 00:00: mouth at [place] [address] bedtime. Medical Branch SUMAtriptan Yes [id number] Take 1 tab Univers 25 mg 8-10 po x 1 ity of tablet 00:00: dose PRN migraine Medical headache, Branch may repeat x 1 dose in 2 hours if needed; Max 2 doses per 24 hours Immunizations Ordered Filled Immunization Date Status Comments [facility] e Immunization Name Name Influenza Virus 2021-11-03 Completed Universit y of Vaccine Quad IM, 00:00:00 [place] Me dical Preserv and ABX Branch Free 6 MO-64 YRS Influenza Virus 2021-11-03 Completed Universit y of Vaccine Quad IM, 00:00:00 [place] Me dical Preserv and ABX Branch Free 6 MO-64 YRS Influenza Virus 2021-11-03 Completed Universit y of Vaccine Quad IM, 00:00:00 [place] Me dical Preserv and ABX Branch Free 6 MO-64 YRS Influenza Virus 2021-11-03 Completed Universit y of Vaccine Quad IM, 00:00:00 [place] Me dical Preserv and ABX Branch Free 6 MO-64 YRS SARS-COV-2 COVID-19 2021-06-10 Completed Unive rsity of MODERNA VACCINE 00:00:00 [place] Med ical Branch SARS-COV-2 COVID-19 2021-06-10 Completed Unive rsity of MODERNA VACCINE 00:00:00 [place] Med ical Branch SARS-COV-2 COVID-19 2021-06-10 Completed Unive rsity of MODERNA 12+ YRS 00:00:00 [facility] ical VACCINE Branch SARS-COV-2 COVID-19 2021-06-10 Completed Unive rsity of MODERNA 12+ YRS 00:00:00 [facility] ical VACCINE Branch SARS-COV-2 COVID-19 2021-05-13 Completed Unive rsity of MODERNA VACCINE 00:00:00 [facility] Branch SARS-COV-2 COVID-19 2021-05-13 Completed Unive rsity of MODERNA VACCINE 00:00:00 [facility] ical Branch SARS-COV-2 COVID-19 2021-05-13 Completed Unive rsity of MODERNA 12+ YRS 00:00:00 [facility] VACCINE Branch SARS-COV-2 COVID-19 2021-05-13 Completed Unive rsity of MODERNA 12+ YRS 00:00:00 [facility] VACCINE Branch Influenza Virus 2021-01-04 Completed Universit y of Vaccine Quad .5 mL 00:00:00 [place] Medical IM 6+ MO Branch Influenza Virus 2021-01-04 Completed Universit y of Vaccine Quad .5 mL 00:00:00 [place] Medical IM 6+ MO Branch Influenza Virus 2021-01-04 Completed Universit y of Vaccine Quad .5 mL 00:00:00 [facility] IM 6+ MO Branch Influenza Virus 2021-01-04 Completed Universit y of Vaccine Quad .5 mL 00:00:00 [facility] IM 6+ MO Branch TDAP 2017-10-15 Completed University of 00:00:00 [facility] TDAP 2017-10-15 Completed University of 00:00:00 [facility] TDAP 2017-10-15 Completed University of 00:00:00 [facility] TDAP 2017-10-15 Completed University of 00:00:00 [facility] TDAP 2017-09-12 Completed University of 00:00:00 [facility] TDAP 2017-09-12 Completed University of 00:00:00 [facility] Vital Signs Vital Name Observation Time Observation Value Comments Source Respiratory rate 2022-09-22 13:34:00 18 /[facility] height 2022-09-22 13:34:00 162.6 cm [facility] Body weight 2022-09-22 13:34:00 107.049 kg [facility] BMI 2022-09-22 13:34:00 40.51 kg/m2 [facility] Systolic blood 2022-03-20 15:58:00 112 mm[Hg] Univer sity of pressure [facility] Diastolic blood 2022-03-20 15:58:00 74 mm[Hg] Unive rsity of pressure [facility] Heart rate 2022-03-20 15:58:00 80 /min Universi ty [facility] Body temperature 2022-03-20 15:58:00 36.78 [facility] Respiratory rate 2022-03-20 15:58:00 16 /min [facility] height 2022-03-20 15:58:00 162.6 cm Universi ty of [facility] Body weight 2022-03-20 15:58:00 105.416 kg Universi ty [facility] BMI 2022-03-20 15:58:00 39.89 kg/m2 [facility] Oxygen saturation in 2022-03-20 15:58:00 99 /min [facility] Arterial blood by [facility] Pulse oximetry Branch Have you Lost Weight 2021-05-02 00:18:32 No Without Trying in the Past 6 Months? Initial DRG Weight: 2021-05-02 00:18:32 0.6411 Working DRG Weight: 2021-05-02 00:18:32 0.6411 Attempted 2021-05-02 00:18:32 N Body Mass Index 2021-05-02 00:18:32 41.5 Height 2021-05-02 00:18:32 162.56\S\64 Pulse Rate 2021-05-02 00:18:32 82 /min Pulse Rate 2021-05-02 00:18:32 82 /min Respiratory Rate 2021-05-02 00:18:32 18 /min Respiratory Rate 2021-05-02 00:18:32 18 /min Respiratory Depth 2021-05-02 00:18:32 Normal /min Respiratory Effort 2021-05-02 00:18:32 Spontaneous /min Respiratory Pattern 2021-05-02 00:18:32 Normal /min Temperature 2021-05-02 00:18:32 36.8\S\98.2 Weight 2021-05-02 00:18:32 520488.353\S\3872 Weight Measurement 2021-05-02 00:18:32 Standing Scale Method Initial DRG Weight: 2021-04-29 15:52:40 0.6411 Working [...] Temperature 2021-04-29 15:52:40 36.8\S\98.2 Weight 2021-04-29 15:52:40 342481.353\S\3872 Weight Measurement 2021-04-29 15:52:40 Standing Scale Method Have you Lost Weight 2021-04-28 10:14:19 No Without Trying in the Past 6 Months? Attempted 2021-04-28 10:14:19 N Body Mass Index 2021-04-28 10:14:19 41.5 Height 2021-04-28 10:14:19 162.56\S\64 Pulse Rate 2021-04-28 10:14:19 82 /min Pulse Rate 2021-04-28 10:14:19 82 /min Respiratory Rate 2021-04-28 10:14:19 18 /min Respiratory Rate 2021-04-28 10:14:19 18 /min Respiratory Depth 2021-04-28 10:14:19 Normal /min Respiratory Effort 2021-04-28 10:14:19 Spontaneous /min Respiratory Pattern 2021-04-28 10:14:19 Normal /min Temperature 2021-04-28 10:14:19 36.8\S\98.2 Weight 2021-04-28 10:14:19 063588.353\S\3872 Weight Measurement 2021-04-28 10:14:19 Standing Scale Method Initial DRG Weight: 2021-04-28 10:14:19 0.6411 Working DRG Weight: 2021-04-28 10:14:19 0.6411 Initial DRG Weight: 2021-04-28 06:32:43 0.6411 Working [...] 2021-04-28 06:32:43 Normal /min Weight 2021-04-28 06:32:43 818633.353\S\3872 Weight Measurement 2021-04-28 06:32:43 Standing Scale Method Have you Lost Weight 2021-04-28 00:20:54 No Without Trying in the Past 6 Months? Attempted 2021-04-28 00:20:54 N Body Mass Index 2021-04-28 00:20:54 41.5 Height 2021-04-28 00:20:54 162.56\S\64 Respiratory Rate 2021-04-28 00:20:54 18 /min Respiratory Depth 2021-04-28 00:20:54 Normal /min Respiratory Effort 2021-04-28 00:20:54 Spontaneous /min Respiratory Pattern 2021-04-28 00:20:54 Normal /min Weight 2021-04-28 00:20:54 433435.353\S\3872 Weight Measurement 2021-04-28 00:20:54 Standing Scale Method [...] 2021-04-28 00:19:52 Normal /min Weight 2021-04-28 00:19:52 492658.353\S\3872 Weight Measurement 2021-04-28 00:19:52 Standing Scale Method Have you Lost Weight 2021-04-27 21:08:37 No Without Trying in the Past 6 Months? Attempted 2021-04-27 21:08:37 N Body Mass Index 2021-04-27 21:08:37 41.5 Height 2021-04-27 21:08:37 162.56\S\64 Respiratory Rate 2021-04-27 21:08:37 18 /min Respiratory Effort 2021-04-27 21:08:37 Spontaneous /min Respiratory Pattern 2021-04-27 21:08:37 Normal /min Weight 2021-04-27 21:08:37 938440.353\S\3872 Weight Measurement 2021-04-27 21:08:37 Standing Scale Method Have you Lost Weight 2021-04-27 18:46:24 No Without Trying in the Past 6 Months? Body Mass Index 2021-04-27 18:46:24 41.5 Height 2021-04-27 18:46:24 162.56\S\64 Respiratory Rate 2021-04-27 18:46:24 18 /min Respiratory Effort 2021-04-27 18:46:24 Spontaneous /min Respiratory Pattern 2021-04-27 18:46:24 Normal /min Weight 2021-04-27 18:46:24 925386.353\S\3872 Weight Measurement 2021-04-27 18:46:24 Standing Scale Method Have you Lost Weight 2021-04-27 08:56:53 No Without Trying in the Past 6 Months? Body Mass Index 2021-04-27 08:56:53 41.5 Height 2021-04-27 08:56:53 162.56\S\64 Respiratory Effort 2021-04-27 08:56:53 Spontaneous /min Respiratory Pattern 2021-04-27 08:56:53 Normal /min Weight 2021-04-27 08:56:53 230765.353\S\3872 Weight Measurement 2021-04-27 08:56:53 Standing Scale Method Have you Lost Weight 2021-04-27 08:54:20 No Without Trying in the Past 6 Months? Respiratory Effort 2021-04-27 08:54:20 Spontaneous /min Respiratory Pattern 2021-04-27 08:54:20 Normal /min WEIGHT 2021-04-27 08:40:00 109.297548 kg HEIGHT 2021-04-27 08:40:00 162.56 cm Procedures Procedure Date / Time Performed Performing Clinician [facility] e POCT TEST 2022-09-22 00:00[facility]00 [facility] Start End Encounter Admission Attending Care Care Encounter Source Date/Time Date/Time Type Type Clinicians Facility Department ID 2022-10-03 2022-10-03 Outpatient R DONY SADLER [facility] [id number] Univers 13:00:00 13:00:[address] [facility] 2022-09-29 2022-09-29 Telephone Dony Sadler [facility] [id number] Univers 00:00:00 00:00:00 Yossi WELCH [id number] i ty of [place] [id number] [address] 2022-09-22 2022-09-22 Nurse Nurse, [facility] [id number] Univers 08:00:00 08:41:13 Visit Dony Sadler [id number] ity [facility] [id number] [id number] [place] [address] 2022-09-22 2022-09-22 Outpatient R DONY SADLER [facility] [id number] Univers [facility] 2022-07-19 Outpatient R DONY SADLER [facility] [id number] Univers 10:30:00 10:30:[address] [facility] 2022-07-04 2022-07-04 Outpatient R DONOVAN [facility] [id number] Univers 16:15:00 16:15:[address] [facility] 2022-06-30 2022-06-30 [facility] [id number] Univers 00:00:00 00:00:00 Anthony HERROC [id number] i ty [place] [id number] [address] 2022-05-30 2022-05-30 Outpatient R BRENDA [facility] [id number] Univers 15:30:00 15:30:00 CAROL ANN [facility] 2022-05-23 2022-05-23 Outpatient R BRENDA [facility] [id number] Univers 14:15:00 14:15:00 CAROL ANN patel [facility] 2022-03-20 2022-03-20 Outpatient R DONOVAN [facility] [id number] Univers 11:00:00 11:28:[address] [facility] 2022-03-20 2022-03-20 Office [facility] [id number] Univers 11:00:00 11:28:29 Visit Anthony WELCH [id number] i ty [place] [id number] [address] 2022-02-24 2022-02-24 Telephone AAZM Man [id number] Univers 00:00:00 00:00:00 Anthony BRENNAN [id number] it y of [facility] 4.2.7.2.686 David as [id number] [address] 2022-02-17 2022-02-17 [facility] ANAYA [id number] Univers 09:05:00 11:22:[address] [facility] 2022-02-17 2022-02-17 Hospital [facility] [id number] Univers 09:05:00 11:22:00 Encounter Anthony WELCH [id number] ity [place] [id number] [facility] 071 Branch 2022-02-17 2022-02-17 Surgery [facility] [id number] Univers 10:15:00 10:46:00 Anthony WELCH 350.1.13.10 i ty [place] [id number] [facility] 020 Branch 2022-02-14 2022-02-14 Laboratory Only, Adc Test [facility] [id number]. [id number] Univers 11:00:00 11:15:00 Only Anthony Man [id number] [place]y [place] [id number] [facility] 353 Branch 2022-02-14 2022-02-14 [facility] [id number] Univers 11:00:00 11:00:[address] [facility] 2022-02-14 2022-02-14 Orders Doctor AZAM [id number] Univers 00:00:00 00:00:00 Only Unassigned, ANU 350.1.13.10 ity of [facility] 4.2.7.2.686 David as [id number] [facility] 009 Branch 2022-01-30 2022-01-30 Office [facility] [id number] Univers 11:00:00 11:26:53 Visit Anthony WELCH 350.1.13.10 i ty [place] [id number] [place] dical [facility] 188 Branch BUILDING 2022-01-30 2022-01-30 [facility] [id number] Univers 11:00:00 11:26:[address] [facility] 2022-01-30 2022-01-30 Outpatient R DONOVAN [facility] [id number] Univers 11:00:00 11:00:[address] [facility] 2022-01-30 2022-01-30 [facility] [id number] Univers 00:00:00 00:00:00 Surgery Gloria WELCH [id number] it[place] [id number] [place] dical NAL 204 [facility] 2022-01-24 2022-01-24 [facility]ill [facility] [id number] Univers 00:00:00 00:00:00 Anthony WELCH 350.1.13.10 i ty [place] [id number] [place] dical PANKAJ 188 [facility] 2022-01-18 2022-01-18 Outpatient R DONY SADLER [facility] [id number] Univers 13:00:00 13:[facility] 2022-01-18 Office Dony Sadler [facility] 1.2.391.745 [id number] Univers 13:00:00 13:33:31 Visit Yossi WELCH 350.1.13.10 i ty of [place] [phone] Wa dical PANKAJ 134 [facility] 2022-01-18 2022-01-18 Outpatient R DONY SADLER [facility] [id number] Univers 13:00:00 13:00:[address] [facility] 2022-01-12 2022-01-12 Outpatient R DONVOAN [facility] [id number] Univers 10:00:00 10:00:[address] [facility] 2022-01-12 2022-01-12 Telephone Dony Sadler [facility] 1.2.840.114 [id number] Univers 00:00:00 00:00:00 Yossi WELCH 350.1.13.10 i ty [facility] 4.[place] [phone] Wa dical PANKAJ 134 [facility] 2022-01-04 2022-01-04 Outpatient R DONY SADLER [facility] [id number] Univers 09:00:00 09:29:40 ity of [facility] 2022-01-04 2022-01-04 Office Viktoriya [facility] 1.2.730.765 [id number] Univers 09:00:00 09:29:40 Visit Yossi WELCH 350.1.13.10 i ty of [facility] 4.2.[place].2.[place] [phone] Wa dical [facility] 134 [facility] 2022-01-04 2022-01-04 Outpatient R VIKTORIYA [facility] [id number] Univers 09:00:00 09:00:00 ity of [facility] 2022-01-04 2022-01-04 Orders Doctor AZAM 1.2.840.114 [id number] Univers 00:00:00 00:00:00 Only Unassigned, ANU 350.1.13.10 ity of [place] [facility] 4.2.7.2.686 David as [phone] [address] 2021-12-27 2021-12-27 Abram Diana [facility] 1.2.840.114 [id number] Univers 00:00:00 00:00:00 Wondiful A HEALTH 350.1.13.10 ity of [place] 4.2.7.2.686 David as PROFESSIO [phone] [facility] [address] OFFICE [facility] ONE 2021-12-05 2021-12-05 Outpatient R DONY SADLER [facility] [id number] Univers 09:30:00 09:30:00 ity of [facility] 2021-12-05 2021-12-05 All Round Butcher 2, Pepe Lab [facility] 1.2.840.114 [id number] Univers 09:30:00 09:30:00 Visit Viktoriya Donyjada WELCH 350.1.13.10 ity of [facility] 4.2.[place].2.[place] [phone] Wa dical NAL 353 [facility] 2021-12-05 2021-12-05 Office Dony Sadler [facility] 1.2.943.858 [id number] Univers 08:30:00 09:05:44 Visit Yossi MARIANNAROC 350.1.13.10 i ty of [facility] 4.2.7.2.[place] [phone] Wa dical NAL 134 [facility] 2021-12-05 2021-12-05 Outpatient R DONY SADLER [facility] [id number] Univers 08:30:00 09:05:[address] [facility] 2021-12-02 2021-12-02 Outpatient ALFONZO DUNN [facility] [id number] Univers 13:40:00 14:10:09 ALFONZO OWUSU [facility] 2021-12-02 2021-12-02 Office [facility] 1.2.840.114 [id number] Univers 13:40:00 14:10:[address] [facility] 350.1.13.10 ity [facility] 4.2.7.2.686 David as JOHN?BLEA [phone] Wa dicinder KNEY 092 [facility] 2021-12-02 2021-12-02 Outpatient ALFONZO DUNN [facility] [id number] Univers 13:40:00 13:40:00 ALFONZO OWUSU [facility] 2021-12-02 2021-12-02 Outpatient ALFONZO DUNN [facility] [id number] Univers 13:40:00 13:40:00 ALFONZO OWUSU [facility] 2021-12-01 2021-12-01 Office [facility] 1.2.414.664 [id number] Univers 10:45:00 11:03:52 Visit Anthony WELCH 350.1.13.10 i ty of [facility] 4.2.7.2.[place] [phone] Wa dical NAL 188 [facility] 2021-12-01 2021-12-01 Outpatient Sally MAN [facility] [id number] Univers 10:45:00 11:03:[address] [facility] 2021-12-01 2021-12-01 Outpatient R DONOVAN [facility] [id number] Univers 10:45:00 10:45:[address] [facility] 2021-11-29 2021-11-29 Outpatient R ALFONZO OWUSU [facility] [id number] Univers 13:00:00 13:00:00 ALFONZO OWUSU edouardpatel [facility] 2021-11-15 2021-11-[address] [facility] 1.2.840.114 [id number] Univers 00:00:00 00:00:00 Anthony WELCH 350.1.13.10 i ty [facility] 4[place]2.[place].2.[place] [phone] Wa dical [facility] 188 [facility] 2021-11-11 2021-11-11 [facility] 1.2.749.598 [id number] Univers 14:30:29 23:59:00 Encounter Wilfrid WELCH 350.1.13.10 ity [facility] 4.2.7.2.[place] [phone] [facility] [address] 2021-11-11 2021-11-11 Outpatient R DONOVAN [facility] [id number] Univers 14:28:29 14:29:[address] [facility] 2021-11-11 2021-11-11 [facility] 1.2.840.114 [id number] Univers 14:28:29 14:29:00 Encounter Anthony WELCH 350.1.13.10 ity [facility] 4[place]2.7.2.[place] [phone] [facility] [address] 2021-11-11 2021-11-11 Outpatient R DONOVAN [facility] [id number] Univers 00:00:00 00:00:[address] [facility] 2021-11-10 2021-11-10 [facility] [id number] Univers 08:33:23 23:59:00 WONDIFUL ity o f [facility] 2021-11-102021-11-10 Hospital [facility] 1.2.895.658 [id number] Univers 08:33:23 23:59:00 Encounter Wondiful A HEALTH 350.1.13.10 ity of [place] 4.2.7.2.686 David as JOHN?BLEA [phone] Wa dicinder CAMACHOEY 809 [facility] OFFICE [facility] 2021-11-10 2021-11-10 Outpatient [facility] [id number] Univers 08:15:00 08:31:16 WONDIFUL ity o f [facility] 2021-11-10 2021-11-10 Office [facility] 1.2.840.114 [id number] Univers 08:15:00 08:31:16 Visit Wondiful A HEALTH 350.1.13.10 ity of [place] 4.2.7.2.686 David as JOHN?BLEA [phone] Wa dicinder KNEY 044 [facility] 2021-11-10 2021-11-10 Patient [facility] 1.2.840.114 [id number] Univers 00:00:00 00:00:00 Secure Msg Wondiful A HEALTH 350.1.13.10 ity of [place] 4.2.7.2.686 David as JOHN?BLEA [phone] Wa dicinder CAMACHOEY 044 [facility] 2021-11-03 2021-11-03 Outpatient [facility] [id number] Univers 10:30:00 11:05:[address] [facility] 2021-11-03 2021-11-03 Office [facility] 1.2.428.749 [id number] Univers 09:50:53 11:05:32 Visit Anthony YURI 350.1.13.10 i ty of [place].2.[place] [phone] Wa dicinder LIRA 188 [facility] 2021-11-03 2021-11-03 Outpatient [facility] [id number] Univers 10:30:00 10:30:[address] [facility] 2021-11-03 2021-11-03 [facility], Ang - Db [facility] 1.2.840.1 [id number] Univers 09:12:19 09:27:19 Visit Rayo Dianajose Kamini HEALTH 350.1.13.1 0 ity of [place] 4.2.7.2.686 David as JOHN?BLEA [phone] Wa neryinder CAMACHO 353 [facility] OFFICE [facility] 2021-11-03 2021-11-03 Outpatient R [facility] [id number] Univers 08:30:00 09:11:33 WONDIFUL ity o f [facility] 2021-11-03 2021-11-03 Office [facility] 1.2.840.114 [id number] Univers 08:08:52 09:11:33 Visit Wilfrid Suárez HEALTH 350.1.13.10 [facility] 4.2.7.2.686 David as JOHN?BLEA [phone] Wa neryinder CAMACHO 044 [facility] OFFICE [facility] 2021-11-03 2021-11-03 Outpatient R IRWIN [facility] [id number] Univers 09:00:00 09:00:00 WONDIFUL ity o f [facility] 2021-11-01 2021-11-01 Orders Doctor AZAM 1.2.840.114 [id number] Univers 00:00:00 00:00:00 Only Unassigned, ANU 350.1.13.10 ity of [place] [facility] 4.2.7.2.686 David as [phone] [address] 2021-10-11 2021-10-11 Outpatient R BRENDA [facility] [id number] Univers 13:15:00 13:33:59 CAROL ANN ity of [facility] 2021-10-11 2021-10-11 Office [facility] 1.2.009.866 [id number] Univers 12:52:20 13:33:59 Visit Carol Ann Hassan YURI 350.1.13.10 i ty of [place] [phone] Wa dical [address] 2021-10-11 2021-10-11 Outpatient R BRENDA [facility] [id number] Univers 13:15:00 13:15:00 CAR[address] ANN [address]el [facility] 2021-10-11 2021-10-11 Outpatient R BRENDA [facility] [id number] Univers 13:15:00 13:15:00 CAROL ANN cohen [facility] 2021-10-06 2021-10-06 Outpatient [facility] [id number] Univers 10:45:00 11:11:[address] [facility] 2021-10-06 2021-10-06 Office [facility] [id number] [id number] Univers 10:29:30 11:11:27 Visit Anthony YURI 350.1.13.10 i ty of [facility] 4.2.7.2.[place] [phone] [address] 2021-10-01 2021-10-01 Outpatient [facility] [id number] Univers 10:01:24 23:59:00 WONDIFUL ity o f [facility] 2021-10-01 2021-10-01 [facility] 1.2.276.313 [id number] Univers 10:00:00 23:59:00 Encounter Wondiful Kamini WELCH 350.1.13.10 ity of [facility] 4.2.7.2.[place] [phone] [facility] [address] 2021-09-30 2021-09-30 Patient [facility] 1.2.482.379 [id number] Univers 00:00:00 00:00:00 Secure Msg Anthony YURI 350.1.13.10 ity of [place] 4.[place].2.[place] [phone] Wa dic[address] 2021-09-30 2021-09-30 Telephone [facility] 1.2.840.114 [id number] Univers 00:00:00 00:00:00 Anthonymaria esther WELCH 350.1.13.10 i ty of [place] 4.2.7.2.[place] [phone] Wa dical NAL [address] [facility] 2021-09-23 2021-09-23 Outpatient R [facility] ANAYA [id number] Univers 07:46:00 12:49:[address] [facility] 2021-09-23 2021-09-23 [facility] [place] 1.2.840.114 [id number] Univers 07:46:00 12:49:00 Encounter Anthony WELCH 350.1.13.10 ity of [place] 4.2.7.2.686 [place] SURGICAL [phone] [facility] [address] 2021-09-23 2021-09-23 Outpatient R [facility] ANAYA [id number] Univers 07:46:00 12:49:[address] [facility] 2021-09-23 2021-09-23 Surgery [facility] 1.2.232.022 [id number] Univers 08:30:00 11:06:00 Anthony WELCH 350.1.13.10 i ty of [place] 4.2.7.2.[place] SURGICAL [phone] [facility] [address] 2021-09-23 2021-09-23 Orders Doctor AZAM 1.2.840.114 [id number] Univers 00:00:00 00:00:00 Only Unassigned, ANU 350.1.13.10 ity of [place] [facility] 4.2.7.2.686 David as [phone] [address] 2021-09-22 2021-09-22 Outpatient R IRWIN [facility] [id number] Univers 11:15:00 12:00:21 WONDIFUL ity o f [facility] 2021-09-22 2021-09-22 Office [facility] 1.2.840.114 [id number] Univers 10:52:31 12:00:21 Visit Wondiful A HEALTH 350.1.13.10 ity [facility] 4.2.7.2.686 David as JOHN?BLEA [phone] Wa dical VIVIANEY [address] MEDICAL OFFICE [facility] 2021-09-22 2021-09-22 Outpatient R IRWIN [facility] [id number] Univers 11:15:00 11:15:00 WONDIFUL ity o f [facility] 2021-09-20 2021-09-20 All Round Butcher 1, Adc Lab [facility] 1.2.840.114 [id number] Univers 11:27:52 11:42:52 Visit Brenda Morin 350.1.13.10 ity of [place] 4.[place].2.[place] [phone] [facility] [address] 2021-09-20 2021-09-20 Outpatient [facility] [id number] Univers 11:30:00 11:30:[address] [facility] 2021-09-20 2021-09-20 Orders Doctor NASCIMENTO 1.2.840.114 [id number] Univers 00:00:00 00:00:00 Only UnassignedANU 350.1.13.10 [facility] 4.2.7.2.686 David as [phone] [facility] [address] 2021-08-24 2021-08-24 Telephone Donovan [facility] 1.2.840.114 [id number] Univers 00:00:00 00:00:00 Anthony Welch 350.1.13.10 i ty of [place] 4.2.7.2.686 [place] Profess[place] [phone] Wa dical [address] 2021-08-23 2021-08-23 Laboratory Only, Adc Test [facility] 1.2.840. 114 [id number] Univers 10:11:33 10:26:33 Only Anthony Man 350.1.13.10 ity of [place] 4.2.[place].2.[place] [phone] [facility] [address] 2021-08-23 2021-08-23 Outpatient R DONOVAN [facility] [id number] Univers 10:00:00 10:00:[address] [facility] 2021-08-23 2021-08-23 Orders Doctor NASCIMENTO 1.2.840.114 [id number] Univers 00:00:00 00:00:00 Only UnassignedANU 350.1.13.10 [facility] 4.2.7.2.686 David as [phone] [address] 2021-08-22 2021-08-22 Outpatient R DONOVAN [facility] [id number] Univers 08:30:00 08:30:[address] [facility] 2021-08-05 2021-08-[address] [facility] 1.2.840.114 [id number] Univers 00:00:00 00:00:00 Surgery Gloria Herton 350.1.13.10 ity of [place] 4[place].2.[place] Profess[place] [phone] Wa dical nal 204 [facility] 2021-08-05 2021-08-05 Prep For Sue [facility] 1.2.840.114 [id number] Univers 00:00:00 00:00:00 Surgery Gloria Suárez [place] 350.1.13.10 ity of [place] 4.2.7.2.686 [place] Profess[place] [phone] Wa dical nal 204 [facility] 2021-08-04 2021-08-04 Office [facility] 1.2.878.352 [id number] Univers 13:00:42 14:18:51 Visit Anthony Yuri 350.1.13.10 i ty of [place] 4.2.7.2.[place] Profess[place] [phone] [facility] 188 [facility] 2021-08-04 2021-08-04 Outpatient Sally MAN [facility] [id number] Univers 13:00:00 13:00:[address] [facility] 2021-08-02 2021-08-02 Office [facility] 1.2.840.114 [id number] Univers 09:50:14 10:56:59 Visit Nestorful A Health 350.1.13.10 ity of [place] 4.2.7.2.686 David as John?Blea [phone] Wa arsenio camacho[address] Office [facility] 2021-08-02 2021-08-02 Outpatient [facility] [id number] Univers 10:15:00 10:15:00 WONDIFUL ity o f [facility] 2021-07-25 2021-07-25 Outpatient R [facility] [id number] Univers 14:00:00 14:00:00 WONDIFUL ity o f [facility] 2021-07-18 2021-07-18 Patient [facility] 1.2.840.114 [id number] Univers 00:00:00 00:00:00 Secure Msg Wondiful A Health 350.1.13.10 ity of [place] 4.2.7.2.686 David as John?Blea [phone] Wa arsenio peña [address] Medical Office Building 2021-07-08 2021-07-08 Hospital [facility] 1.2.362.433 [id number] Univers 15:26:10 23:59:00 Encounter Wondiful A [place] 350.1.13.10 ity of [place] 4.2.7.2.[place] [phone] [facility] [address] 2021-07-08 2021-07-08 Outpatient R [facility] [id number] Univers 00:00:00 00:00:00 WONDIFUL ity o [facility] 2021-07-05 2021-07-05 Office [facility] 1.2.840.114 [id number] Univers 13:02:15 14:16:19 Visit Wondiful A Health 350.1.13.10 ity of [place] 4.2.7.2.686 David as Professio [phone] Wa arsenio lira [address] [place] [address] Office Building One 2021-07-05 2021-07-05 Outpatient R [facility] [id number] Univers 13:30:00 13:30:00 WONDIFUL ity o f [facility] 2021-07-05 2021-07-05 Outpatient R [facility] [id number] Univers 13:30:00 13:30:00 WONDIFUL ity o [facility] 2021-05-11 2021-05-11 Telephone BHARAT Qureshi 1.2.840.114 [id number] 00:00:00 00:00:00 Antonio CRAVEN 350.1.13.58 MEDICAL 9.2.7.2.686 BUILDING [id number] 7 2021-05-11 2021-05-11 Telephone BHARAT Qureshi 1.2.840.114 [id number] MD 00:00:00 00:00:00 Antonio CRAVEN 350.1.13.58 H [facility] 9.2.7.2.686 BUILDING [id number] 7 2021-05-05 2021-05-05 Outpatient R DONY SADLER [facility] [id number] Univers 14:00:00 14:00:00 ity of [facility] 2021-05-03 2021-05-03 Telephone BHARAT Qureshi 1.2.840.114 [id number] 00:00:00 00:00:00 Antonio CRAVEN 350.1.13.58 MEDICAL 9.2.7.2.686 [facility] [id number] 7 2021-05-03 2021-05-03 Telephone BHARAT Qureshi 1.2.840.114 [id number] MD 00:00:00 00:00:00 Antonio CRAVEN 350.1.13.58 H [facility] 9.2.7.2.686 BUILDING [id number] 7 2021-04-27 2021-04-27 Outpatient Elective [facility] JM0 [id number] [facility] 07:17:00 07:17:00 Tim 64 2021-04-27 2021-04-27 Outpatient [facility] [id number] [facility] 07:17:00 07:17:00 64 2021-04-21 2021-04-21 Orders Doctor AZAM 1.2.840.114 [id number] Univers 00:00:00 00:00:00 Only Unassigned, ANU 350.1.13.10 ity of [place] [facility] 4.2.7.2.686 David as [phone] [address] 2021-02-15 2021-02-15 Patient Jesse [facility] 1.2.840.114 [id number] Univers 00:00:00 00:00:00 Outreach [facility] 350.1.13.10 i ty [facility] 4.2.7.2.686 [place] CHANG [phone] Wa dical [address] 2021-01-04 2021-01-04 Outpatient Sally MIR [facility] [id number] Univers 14:30:00 14:30:00 NISHA haro [facility] Results Test Description Test Time Test Comments Results Result Comments Source POCT TEST 2022-09-22 13:41:00 Test Item Value Reference Range Interpretation Comme nts POCT PREG (test code = 1605) Positive On board controls acceptable with C Line (test code = 3574) Yes POCT PREG LOT # (test code = 3575) POCT PREG TEST DATE (test code = 3576) [facility] Blood Count Auto [id number] 06:20:00 Test Item Value Reference Range Interpretation Comments White Blood Count (test code = 8.2 x10 3/uL 4.4-10.5 N WBCT) Red Blood Count (test code = 3.85 x10 6/uL 3.75-5.20 N RBC) Hemoglobin (test code = HGBT) 11.7 g/dL 12.2-14.8 L Hematocrit (test code = HCTT) 34.8 % 36.5-44.4 L Mean Corpuscular Volume (test 90.40 fL 80.00-100.00 N code = MCV) Mean Corpuscular Hemoglobin 30.4 pg 27.0-32.5 N (test code = MCH) Mean Corpuscular HGB Conc 33.60 g/dL 32.00-37.50 N (test code = MCHC) RDW Coefficient of Variation 12.4 % 11.5-14.5 N (test code = RDWCV) Platelet Count (test code = 255.0 x10 3/uL 140.0-440.0 N PLTT) Mean Platelet Volume (test 10.2 fL code = MPV) Immature Granulocytes % (Auto) 0.4 % 0.0-5.0 N (test code = IMMGRAN%) Neutrophils % (Auto) (test 64.0 % 36.0-70.0 N code = NE%) Lymphocytes % (Auto) (test 25.3 % 12.0-44.0 N code = LY%) Monocytes % (Auto) (test code 9.0 % 0.0-11.0 N = MO%) Eosinophils % (Auto) (test 1.2 % 0.0-7.0 N code = EO%) Basophils % (Auto) (test code 0.1 % 0.0-2.0 N = BA%) Immature Granulocytes # (Auto) 0.03 x10 3/uL (test code = IMMGRAN#) Neutrophils # (Auto) (test 5.3 x10 3/uL 1.6-7.4 N code = NE#) Lymphocytes # (Auto) (test 2.08 x10 3/uL 0.50-4.60 N code = LY#) Monocytes # (Auto) (test code 0.74 x10 3/uL 0.00-1.20 N = MO#) Eosinophils # (Auto) (test 0.10 x10 3/uL 0.00-0.74 N code = EO#) Basophils # (Auto) (test code 0.01 x10 3/uL 0.00-0.21 N = BA#) nRBC Abs (test code = NRBCA) 0 nRBC Pct (test code = NRBCP) 0 % Coronavirus PCR, COVID19 [id number] 11:15:00 Test Item Value Reference Range Interpretation Comments Coronavirus PCR, For use under Emergency COVID19 Rapid (test Use Authorization (EUA) code = SARSCOV2) only. Coronavirus PCR, Reference Range: COVID19 Rapid (test Negative code = YJEGEQH43.1) SARS-CoV-2 PCR Result: Negative by PCR (test code = SARS-CoV-2 PCR Result:) COVID-19 Status: AsymptomaticComplete Blood Count w/o [id number] 08:35:00 Test Item Value Reference Range Interpretation [...] Pct (test code = NRBCP) 0 % Rapid Plasma [id number] 08:35:00 Test Item Value Reference Range Interpretation Comments Rapid Plasma Non-Reactive Non-React RPR Lot: [id number] RPR Exp: Reagin (test code 12-26-2021 ontrolsReacti = RPR) ve: ReactiveWea k Reactive: ReactiveNon-ivana ctive: Non-reactive Hepatitis B Surface [id number] 08:35:00 Test Item Value Reference Range Interpretation Comments Hepatitis B Surface Antigen Non-Reactive NonReactive (test code = HBSAG)
--- NOTE | 2022-09-30 10:43 | EDPHYS ---
Physician Documentation [facility] Name: Esha Augustine Age: 27 yrs Sex: Female : 1995 Arrival Date: 09/30/2022 Time: 09:14 Bed IW2 Private MD: ED Physician Willie Sandoval HPI: 09/30 10:45 This 27 yrs old Female presents to ER via Ambulatory with complaints of snw Recheck HCG levels. 10:45 The patient presents with here 48 hours ago, threatened ab. Repeat HCG. Onset: The snw symptoms/episode began/occurred acutely. Modifying factors:. Associated signs and symptoms: The patient has no apparent associated signs or symptoms. Severity of symptoms: At their worst the symptoms were very mild. The patient has experienced a previous episode. The patient has been recently seen by a physician: The patient has been recently seen at the [facility] Emergency Department, for similar complaints labs were performed, an ultrasound was performed. needs repeat quant. 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 - Social history:: Smoking status: Patient denies any tobacco usage or history of. ROS: 10:46 Constitutional: Negative for fever, chills, and weight loss, Eyes: Negative for injury, snw pain, redness, and discharge, ENT: Negative for injury, pain, and discharge, Neck: Negative for injury, pain, and swelling, Cardiovascular: Negative for chest pain, palpitations, and edema, Respiratory: Negative for shortness of breath, cough, wheezing, and pleuritic chest pain, Abdomen/GI: Negative for abdominal pain, nausea, vomiting, diarrhea, and constipation, Back: Negative for injury and pain, : Negative for injury, bleeding, discharge, and swelling, MS/Extremity: Negative for injury and deformity, Skin: Negative for injury, rash, and discoloration, Neuro: Negative for headache, weakness, numbness, tingling, and seizure. Exam: 10:47 Constitutional: This is a well developed, well nourished patient who is awake, alert, snw and in no acute distress. Head/Face: Normocephalic, atraumatic. Eyes: Pupils equal round and reactive to light, extra-ocular motions intact. Lids and lashes normal. Conjunctiva and sclera are non-icteric and not injected. Cornea within normal limits. Periorbital areas with no swelling, redness, or edema. ENT: Nares patent. No nasal discharge, no septal abnormalities noted. Tympanic membranes are normal and external auditory canals are clear. Oropharynx with no redness, swelling, or masses, exudates, or evidence of obstruction, uvula midline. Mucous membranes moist. Neck: Trachea midline, no thyromegaly or masses palpated, and no cervical lymphadenopathy. Supple, full range of motion without nuchal rigidity, or vertebral point tenderness. No Meningismus. Chest/axilla: Normal chest wall appearance and motion. Nontender with no deformity. No lesions are appreciated. Cardiovascular: Regular rate and rhythm with a normal S1 and S2. No gallops, murmurs, or rubs. Normal PMI, no JVD. No pulse deficits. Respiratory: Lungs have equal breath sounds bilaterally, clear to auscultation and percussion. No rales, rhonchi or wheezes noted. No increased work of breathing, no retractions or nasal flaring. Abdomen/GI: Soft, non-tender, with normal bowel sounds. No distension or tympany. No guarding or rebound. No evidence of tenderness throughout. Back: No spinal tenderness. No costovertebral tenderness. Full range of motion. Skin: Warm, dry with normal turgor. Normal color with no rashes, no lesions, and no evidence of cellulitis. MS/ Extremity: Pulses equal, no cyanosis. Neurovascular intact. Full, normal range of motion. Neuro: Awake and alert, GCS 15, oriented to person, place, time, and situation. Cranial nerves II-XII grossly intact. Motor strength 5/5 in all extremities. Sensory grossly intact. Cerebellar exam normal. Normal gait. Vital Signs: 09:23 BP 105 / 60; Pulse 80; Resp 15; Temp 98.1(TE); Pulse Ox 100% on R/A; Weight 106.59 kg; ss Height 5 ft. 4 in. (162.56 cm); Pain 0/10; 09:23 Body Mass Index 40.34 (106.59 kg, 162.56 cm) ss MDM: 09:54 Patient medically screened. snw 10:46 Data reviewed: vital signs, nurses notes. Counseling: I had a detailed discussion with snw the patient and/or guardian regarding: the historical points, exam findings, and any diagnostic results supporting the discharge/admit diagnosis, lab results, the need for outpatient follow up, to return to the emergency department if symptoms worsen or persist or if there are any questions or concerns that arise at home. Response to treatment: There is no appreciated change of the patient's symptoms at this time. Special discussion: Based on the history and exam findings, there is no indication for further emergent testing or inpatient evaluation. I discussed with the patient/guardian the need to see the OB Gyne specialist for further evaluation of the symptoms. 09/30 09:25 Order name: HCG-Quantitative; Complete Time: 10:31 snw Administered Medications: No medications were administered Disposition Summary: 09/30/22 10:41 Discharge Ordered Location: Home snw Condition: Stable snw Diagnosis - state, incidental snw Followup: snw - With: Emergency Department - When: As needed - Reason: Worsening of condition Followup: snw - With: Private Physician - When: 1 week - Reason: Recheck today's complaints, Continuance of care, Re-evaluation by your physician Discharge Instructions: - Discharge Summary Sheet snw - Care snw Forms: - Medication Reconciliation Form snw - Thank You Letter snw - Antibiotic Education snw - Prescription Opioid Use snw Signatures: Dispatcher [employer] Anna Diana FNP-C LOGISTICS ANALYST-Csnw Giselle Omer, RN RN ss
--- NOTE | 2022-09-30 10:43 | ER ---
Nurse's Notes [facility] Name: Esha Augustine Age: 27 yrs Sex: Female : 1995 Arrival Date: 09/30/2022 Time: 09:14 Bed IW2 Private MD: Diagnosis: state, incidental Presentation: 09/30 09:23 Chief complaint: Patient states: Sent by Dr. Rosario to recheck HCG levels. Denies vaginal ss bleeding. Coronavirus screen: Client denies travel out of the [place] in the last 14 days. Ebola Screen: Patient denies exposure to infectious person. Patient denies travel to an Ebola-affected area in the 21 days before illness onset. Initial Sepsis Screen: Does the patient meet any 2 criteria? No. Patient's initial sepsis screen is negative. Does the patient have a suspected source of infection? No. Patient's initial sepsis screen is negative. Risk Assessment: Do you want to hurt yourself or someone else? Patient reports no desire to harm self or others. Onset of symptoms is unknown. 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 - Social history:: Smoking status: Patient denies any tobacco usage or history of. Assessment: 10:50 Reassessment: Patient appears in no apparent distress at this time. Patient and/or ss family updated on plan of care and expected duration. Pain level reassessed. Patient is alert, oriented x 3, equal unlabored respirations, skin warm/dry/pink. Vital Signs: : BP 105 / 60; Pulse 80; Resp 15; Temp 98.1(TE); Pulse Ox 100% on R/A; Weight 106.59 kg; ss Height 5 ft. 4 in. (162.56 cm); Pain 0/10; : Body Mass Index 40.34 (106.59 kg, 162.56 cm) ED Course: 09:14 Patient arrived in ED. rg4 09:25 Anna Michael FNP-C is [facility]. snw 09:25 Willie Sandoval MD is Attending Physician. snw 09:25 Triage completed. ss 09:25 Arm band placed on right wrist. ss 09:35 Initial lab(s) drawn, by me, sent to lab. ss 10:50 Giselle Omer, KRISTIAN is Primary Nurse. ss 10:50 No provider procedures requiring assistance completed. Patient did not have IV access ss during this emergency room visit. Administered Medications: No medications were administered Outcome: 10:41 Discharge ordered by . snw 10:50 Discharged to home ambulatory. ss 10:50 Condition: good 10:50 Discharge instructions given to patient, Instructed on discharge instructions, follow up and referral plans. Demonstrated understanding of instructions, follow-up care. 10:51 Patient left the ED. Signatures: Anna Michael FNP-C TRACK GREASER-Csnw Giselle Omer RN RN Roz Gonzalez [id number]
[2022-09-30 10:56] VITALS: BP 105/60; TEMP 98.1; O2SAT 100
== END 2022-09-30 10:51 | disposition home or self-care (01) ==
LOC: ER 09:13
DX: Z32.01 Encounter for pregnancy test, result positive (principal)
CPT/HCPCS: 36415; 84702; 99283

== ENCOUNTER 2024-03-05 18:36 | Emergency (ER) | payer OTHER ==
--- OUTSIDE RECORDS SUMMARY | 2024-03-05 18:47 | XMS REPORT | Continuity of Care Document ---
Author Name Unknown Address [address] [facility] [address] [place] [address] [facility] Address [address] [facility] 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 Role Phone PCP, PATIENT DOES NOT HAVE A Primary Care Physic beau Unavailable Deepak Fisher Attending Clinician Unavailable JOSE GOLDSTEIN Attending Clinician Unavail able DONY SADLER Attending Clinician Unavailable Dony Sadler MD Attending Clinician [phone] Doctor Unassigned, Barre Attending Clinician U BRIAN Muir Attending Clinician Unavaila BRIAN Mason Attending Clinician Unavaila KEVIN Valles Attending Clinician Unavailable Kevin Aguirre PA-C Attending Clinician [phone] Unknown, Attending Attending Clinician Unavailab Caprice Hopkins MD Attending Clinician [phone] Pcp, Patient Does Not Have A Attending Clinician JALEESA NORRIS Attending Clinician Unavailable Jr ROMAN, Jaleesa Baker Attending Clinician [phone] Stephen Lucia MD Attending Clinician [phone] Keyon Magaña CRNA Attending Clinician [phone] Room, [facility] Attending Clinician Unavailable Joseluis Roth MD Attending Clinician [phone] Ultrasound, [facility] Attending Clinician Unavaila JOSELUIS Frazier Attending Clinician Unavaila cheryle Provider, [facility] Attending Clinician Unavailable Awa Hdez MD Attending Clinician + [phone], [facility] Room Attending Clinician UnavailAWA Coffman Attending Clinician Unavailabl e Nurse, [facility] Attending Clinician Un available 2, [facility] Attending Clinician Unavailable 2, [facility] Us Room Attending Clinician Unavailab rosalia Baker MD, Frazier Attending Clinician + KARIN WHARTON Attending Clinician Unav ailable 1, [facility] Us Room Attending Clinician Unavailab rosalia Hinds, [facility] Main Attending Clinician Unavailleroy Sosa RN, Chris Zavala Attending Clinician Unavailabl e Faculty, [facility] Attending Clinician Unava ilable Lucy Sotelo MD Attending Clinician [phone] LUCY SOTELO Attending Clinician Unavailable ISABELLA SKY Attending Clinician Unavailable Isabella Mendes Attending Clinician +[phone] Shivani Chavarria MA Attending Clinician Unavail able LEISA MAN Attending Clinician Unavailable Leisa Man MD Attending Clinician + [phone] CAROL ANN GUTIERERZ Attending Clinician Unavailabl e Only, [facility] Attending Clinician Unavailable Gloria Ko Attending Clinician [phone] Adalgisa ROMAN, Shahbaz Suárez Attending Clinician [phone] ALFONZO MOORE Attending Clinician Unavail able ALFONZO MOORE Attending Clinician Unavail able Alfonzo Moore MD Attending Clinician +[phone] SHAHBAZ DIANA Attending Clinician Unavaila ble Lab, [facility] Attending Clinician Unavailable Carol Ann Gutierrez MD Attending Clinician [phone], [facility] Attending Clinician Unavailable Brenda Mcarthur MD Attending Clinician [phone] BRENDA MCARTHUR Attending Clinician UnavailAntonio Elias MD Attending Clinician Unavailable Tim Castellon Attending Clinician Unavailab Rafiq Ozuna DO Attending Clinician [phone] NISHA MIR Attending Clinician Unavailab rosalia SADLER, DONY RAY Admitting Clinician Unavailable JALEESA NORRIS Admitting Clinician Unavailable Jaleesa Norris MD Admitting Clinician [phone] Dony Sadler MD Admitting Clinician +[phone] LEISA MAN Admitting Clinician Unavailable Leisa Man MD Admitting Clinician [phone] SHAHBAZ DIANA Admitting Clinician Unavailkamini lobato Payers Payer Name Policy Type Policy Number Effective Date Expirati on Date Source [facility] [place] [id number] 2021 00:00:00 [facility] Individual Exchange Benefit Plan 53 [id number] 2023 00:00:00 [facility] Problems Condition Name Condition Details Condition Category Status Onset Date Resolution Date Last Treatment Date Treating Clinician Comments Source Postproced ural wound infection Postproced ural wound infection Disease Active 05-15 00:00: 00 [facility] examinatio n following delivery examinatio n following delivery Disease Active 05-15 00:00: 00 [facility] Onset (spontaneo us) of labor after 37 completed weeks of gestation but before 39 completed weeks gestation, with delivery by (planned) section Onset (spontaneo us) of labor after 37 completed weeks of gestation but before 39 completed weeks gestation, with delivery by (planned) section Disease Active 05-04 00:00: 00 [facility] Polyhydram nios, antepartum , single or unspecifie d fetus Polyhydram nios, antepartum , single or unspecifie d fetus Disease Active 5-04 00:00: 00 [facility] Encounter for tubal ligation counseling Encounter for tubal ligation counseling Disease Active 0 4-18 00:00: 00 [facility] High-risk in third trimester High-risk in third trimester Disease Active 4-18 00:00: 00 [facility] Uterine size-date discrepanc y in third trimester Uterine size-date discrepanc y in third trimester Disease Active 4-18 00:00: 00 [facility] Pelvic pain affecting , antepartum Pelvic pain affecting , antepartum Disease Active -21 00:00: 00 [facility] related fatigue in second trimester related fatigue in second trimester Disease Active 3-21 00:00: 00 [facility] Numbness and tingling in both hands Numbness and tingling in both hands Disease Active 02-13 00:00: 00 [facility] Low back pain during , antepartum Low back pain during , antepartum Disease Active 1 00:00: 00 [facility] Previous section Previous section Disease Active 2021-11 00:00: 00 [facility] History of delivery, currently History of delivery, currently Disease Active 2021-11 00:00: 00 [facility] History of anxiety History of anxiety Disease Active 2021-11 00:00: 00 [facility] History of depression History of depression Disease Active 2021-11 00:00: 00 [facility] Epigastric pain Epigastric pain Disease Active 3 00:00: 00 Overview: Formattin g of this note might be different from the original. Added automatic ally from request for surgery [id number] [facility] Gastroesop hageal reflux disease with esophagiti s, unspecifie d whether hemorrhage Gastroesop hageal reflux disease with esophagiti s, unspecifie d whether hemorrhage Disease Active 3-07 00:00: 00 Overview: Formattin g of this note might be different from the original. Added automatic ally from request for surgery [id number] [facility] Obesity (BMI 30-39.9) Obesity (BMI 30-39.9) Disease Active 2-23 00:00: 00 [facility] Vitamin D deficiency Vitamin D deficiency Disease Active 2020-11 2-16 00:00: 00 [facility] Left breast mass Left breast mass Disease Active 2020-11 1-01 00:00: 00 [facility] Biliary colic Biliary colic Disease Active 9-13 00:00: 00 Overview: Formattin g of this note might be different from the original. Added automatic ally from request for surgery [id number] [facility] Left-sided epistaxis, recurrent Left-sided epistaxis, recurrent Disease Active 8-17 00:00: 00 [facility] Reactive depression Reactive depression Disease Active 8-17 00:00: 00 [facility] Gallstones Gallstones Disease Active 8-16 00:00: 00 [facility] [id number] Migraine without aura and without status migrainosu s, not intractabl e Problem [facility] [id number] Obesity, Class III, BMI 40-49.9 (morbid obesity) Problem [facility] [id number] Gastroesop hageal reflux disease without esophagiti s Problem [facility] Migraines Migraines Disease Active [facility] Allergies, Adverse Reactions, Alerts Allergy Name Allergy Type Status Severity Reaction(s) Onset Date Inactive Date Treating Clinician Comments Source No Known Drug Allergie s DA Active U 6- 00:00: 00 [facility] NO KNOWN ALLERGIE S Drug Class Active [facility] Family History Family Member Diagnosis Comments Start Date Stop Date Sourc e Maternal grandfather Cancer [facility] Natural [facility] Natural mother Diabetes [facility] Natural mother High cholesterol [facility] Natural [facility] Hypertension [facility] Paternal [facility] Social History Social Habit Start Date Stop Date Quantity Comments Source ASSERTION 2022-08-31 00:00:00 [facility] History of Tobacco Use [facility] Sex Assigned At [facility] History SDOH Alcohol Frequency [facility] History SDOH Alcohol Std Drinks [facility] History SDOH Alcohol Binge [facility] Gender identity [facility] Exposure to SARS-CoV-2 (event) 2023-05-14 00:00:00 2023-05-24 06:19:00 Not sure [facility] Education 2023-05-04 00:00:00 2023-05-04 00:00:00 16 [facility] History of Social function 2023-01-09 00:00:00 2023-01-09 00:00:00 [facility] Alcohol Comment 2021-07-05 00:00:00 2021-07-05 00:00:00 Occasionally [facility] Tobacco use and exposure 2021-01-04 00:00:00 2021-01-04 00:00:00 Smokeless tobacco non-user [facility] Alcohol intake 2021-01-04 00:00:00 2021-01-04 00:00:00 .14 /d [facility] Smoking Status Start Date Stop Date Source Unknown if ever smoked [facility] Never Smoker [facility] Medications Ordered Medication Name Filled Medication Name Start Date Stop Date Current Medication? Ordering Clinician Indication Dosage Frequency Signature (SIG) Comments Components Source Naproxen 500 MG Naproxen 500 MG 02-17 00:00: 00 No 1{table t_with_ food_or _milk} BID Naproxen 500 MG Penicillin V Potassium 500 MG Penicillin V Potassium 500 MG 2023-- 00:00: 00 No 1{table t} TID Penicillin V Potassium 500 MG Naproxen 500 MG Naproxen 500 MG 4-0 -25 00:00: 00 No 1{table t_with_ food_or _milk} BID Naproxen 500 MG Penicillin V Potassium 500 MG Penicillin V Potassium 500 MG 2024-0 3-25 00:00: 00 No 1{table t} TID Penicillin V Potassium 500 MG Naproxen 500 MG Naproxen 500 MG 4-0 3-25 00:00: 00 No 1{table t_with_ food_or _milk} BID Naproxen 500 MG Penicillin V Potassium 500 MG Penicillin V Potassium 500 MG 4-0 3-25 00:00: 00 No 1{table t} TID Penicillin V Potassium 500 MG Naproxen 500 MG Naproxen 500 MG 4-0 -25 00:00: 00 No 1{table t_with_ food_or _milk} BID Naproxen 500 MG Penicillin V Potassium 500 MG Penicillin V Potassium 500 MG 4-0 25 00:00: 00 No 1{table t} TID Penicillin V Potassium 500 MG Naproxen 500 MG Naproxen 500 MG 4-0 25 00:00: 00 No 1{table t_with_ food_or _milk} BID Naproxen 500 MG Penicillin V Potassium 500 MG Penicillin V Potassium 500 MG 4-0 25 00:00: 00 No 1{table t} TID Penicillin V Potassium 500 MG Naproxen 500 MG Naproxen 500 MG 4-0 25 00:00: 00 No 1{table t_with_ food_or _milk} BID Naproxen 500 MG Penicillin V Potassium 500 MG Penicillin V Potassium 500 MG 4-0 25 00:00: 00 No 1{table t} TID Penicillin V Potassium 500 MG Meloxicam 15 MG Meloxicam 15 MG 2024-0 3- 00:00: 00 No 1{table t} QD Meloxicam 15 MG Meloxicam 15 MG Meloxicam 15 MG 2024-0 3- 00:00: 00 No 1{table t} QD Meloxicam 15 MG Meloxicam 15 MG Meloxicam 15 MG 2024-0 3- 00:00: 00 No 1{table t} QD Meloxicam 15 MG Meloxicam 15 MG Meloxicam 15 MG 2024-0 3- 00:00: 00 No 1{table t} QD Meloxicam 15 MG Meloxicam 15 MG Meloxicam 15 MG 2024-0 3- 00:00: 00 No 1{table t} QD Meloxicam 15 MG Meloxicam 15 MG Meloxicam 15 MG 4-0 3-06 00:00: 00 No 1{table t} QD Meloxicam 15 MG Meloxicam 15 MG Meloxicam 15 MG 4-0 3-06 00:00: 00 No 1{table t} QD Meloxicam 15 MG SUMAtriptan Succinate 50 MG SUMAtriptan Succinate 50 MG 4-0 2- 00:00: 00 No BID SUMAtripta n Succinate 50 MG SUMAtriptan Succinate 50 MG SUMAtriptan Succinate 50 MG 4-0 2- 00:00: 00 No BID SUMAtripta n Succinate 50 MG SUMAtriptan Succinate 50 MG SUMAtriptan Succinate 50 MG 4-0 2- 00:00: 00 No BID SUMAtripta n Succinate 50 MG Sulfamethox azole-Trime thoprim 800-160 MG Sulfamethox azole-Trime thoprim 800-160 MG 4-0 2- 00:00: 00 No 1{table t} BID Sulfametho xazole-Tri methoprim 800-160 MG Sulfamethox azole-Trime thoprim 800-160 MG Sulfamethox azole-Trime thoprim 800-160 MG 4-0 2- 00:00: 00 No 1{table t} BID Sulfametho xazole-Tri methoprim 800-160 MG Sulfamethox azole-Trime thoprim 800-160 MG Sulfamethox azole-Trime thoprim 800-160 MG 4-0 2- 00:00: 00 No 1{table t} BID Sulfametho xazole-Tri methoprim 800-160 MG Sulfamethox azole-Trime thoprim 800-160 MG Sulfamethox azole-Trime thoprim 800-160 MG 4-0 2- 00:00: 00 No 1{table t} BID Sulfametho xazole-Tri methoprim 800-160 MG Sulfamethox azole-Trime thoprim 800-160 MG Sulfamethox azole-Trime thoprim 800-160 MG 4-0 2-23 00:00: 00 No 1{table t} BID Sulfametho xazole-Tri methoprim 800-160 MG Sulfamethox azole-Trime thoprim 800-160 MG Sulfamethox azole-Trime thoprim 800-160 MG 4-0 2- 00:00: 00 No 1{table t} BID Sulfametho xazole-Tri methoprim 800-160 MG Sulfamethox azole-Trime thoprim 800-160 MG Sulfamethox azole-Trime thoprim 800-160 MG 4-0 2- 00:00: 00 No 1{table t} BID Sulfametho xazole-Tri methoprim 800-160 MG predniSONE 20 MG predniSONE 20 MG 4-0 2- 00:00: 00 No 2{table ts} QD predniSONE 20 MG predniSONE 20 MG predniSONE 20 MG 2023-0 2- 00:00: 00 No 2{table ts} QD predniSONE 20 MG Pantoprazol e Sodium 40 MG Pantoprazol e Sodium 40 MG 0 1- 00:00: 00 No 1{table t} QD Pantoprazo le Sodium 40 MG hydrOXYzine HCl 10 MG hydrOXYzine HCl 10 MG 0 1- 00:00: 00 No 1{table t_as_ne eded} QD hydrOXYzin e HCl 10 MG Pantoprazol e Sodium 40 MG Pantoprazol e Sodium 40 MG 0 - 00:00: 00 No 1{table t} QD Pantoprazo le Sodium 40 MG hydrOXYzine HCl 10 MG hydrOXYzine HCl 10 MG 0 - 00:00: 00 No 1{table t_as_ne eded} QD hydrOXYzin e HCl 10 MG ergocalcife rol, vitamin D2, (VITAMIN D ORAL) 12 13:52: 16 Yes Take by mouth. [facility] ergocalcife rol, vitamin D2, (VITAMIN D ORAL) 20 15:11: 07 Yes Take by mouth. [facility] sulfamethox azole-trime thoprim (BACTRIM DS) 800-160 mg per tablet 6-15 00:00: 00 05-21 04:59 :00 No [id number] 1{tbl} Take 1 tablet by mouth in the morning and 1 tablet in the evening. Do all this for 10 days. [facility] vit no.124/iron /folic ( VITAMIN ORAL) 05-06 09:13: 20 05-06 00:00 :00 No 1{tbl} Take 1 tablet by mouth daily. [facility] vitamin w/FA tablet 05-06 00:00: 00 Yes [id number] 1{tbl} Take 1 tablet by mouth in the morning. [facility] docusate 100 mg capsule 05-06 00:00: 00 Yes [id number] 200mg Take 2 capsules by mouth once daily as needed for Constipati on. [facility] ibuprofen 600 mg tablet 05-06 00:00: 00 Yes [id number] 600mg Take 1 tablet by mouth every 6 (six) hours as needed (Pain). Take with food or milk. [facility] vitamin w/FA tablet 05-06 00:00: 00 Yes [id number] 1{tbl} Take 1 tablet by mouth in the morning. [facility] ferrous sulfate 325 mg (65 mg iron) tablet 05-06 00:00: 00 Yes [id number] 325mg Take 1 tablet by mouth in the morning and 1 tablet in the evening. [facility] HYDROcodone -acetaminop hen 5-325 mg tablet 05-06 00:00: 00 05-14 04:59 :00 No [id number] 1{tbl} Take 1 tablet by mouth every 6 (six) hours as needed (Pain scale above 4) for up to 7 days. Do not exceed 3 grams of acetaminop hen in 24 hours. Indication s: acute pain [facility] heparin (porcine) injection 5,000 Units 05-05 13:00: 00 Yes 5000U 5,000 Units, Subcutaneo us, Q12H, First dose on 05/05/23 at 0800, Until Discontinu ed, Routine [facility] acetaminoph en ADULT (OFIRMEV) injection 1,000 mg 05-05 09:00: 00 05-05 09:03 :00 No 1000mg 1,000 mg, IV Infusion, at 400 mL/hr Administer over 15 Minutes, ONCE, 1 dose, On 05/05/23 at 0400, Routine
Indicatio n: Perioperat joanna Patient [facility] NaCl 0.9% (NS) IV infusion 05-05 07:48: 00 Yes CONTINUOUS PRN, Starting on 05/05/23 at 0248, Until Discontinu ed, Routine, Intra-op [facility] rho(D) immune globulin (RHOGAM) syringe 300 mcg 05-05 03:31: 19 Yes 300ug 300 mcg, Intramuscu lar, ONCE, For 1 dose, Conditiona l, Routine [facility] HYDROcodone -acetaminop hen (NORCO 5) 5-325 mg tablet 2 tablet 05-05 03:30: 43 Yes 2{tbl} 2 tablet, Oral, Q6HPRN, Starting on Sun05/04/23 at 2230, Until Discontinu ed, Routine, Pain (scale 7-10), Alternate with Ibuprofen [facility] HYDROcodone -acetaminop hen (NORCO 5) 5-325 mg tablet 1 tablet 05-05 03:30: 39 Yes 1{tbl} 1 tablet, Oral, Q6HPRN, Starting on Sun05/04/23 at 2230, Until Discontinu ed, Routine, Pain (scale 4-6), Alternate with Ibuprofen [facility] ibuprofen (IBU) tablet 600 mg 05-05 03:30: 36 Yes 600mg 600 mg, Oral, Q6HPRN, Starting on Sun05/04/23 at 2230, Until Discontinu ed, Routine, Pain (scale 1-3) [facility] diphenhydrA MINE (BENADRYL) injection 25 mg 05-05 03:29: 31 Yes 25mg 25 mg, Slow IV Push, Q6HPRN, Starting on Sun05/04/23 at 2229, Until Discontinu ed, Routine, Itching [facility] diphenhydrA MINE (BENADRYL) tablet 25 mg 05-05 03:29: 31 Yes 25mg 25 mg, Oral, Q6HPRN, Starting on Sun05/04/23 at 2228, Until Discontinu ed, Routine, Sleep, Itching [facility] ondansetron (ZOFRAN (PF)) injection 4 mg 05-05 03:29: 31 Yes 4mg 4 mg, Slow IV Push, Q8HPRN, Starting on Sun05/04/23 at 2228, Until Discontinu ed, Routine, Nausea and Vomiting (N/V) [facility] bisacodyL (DULCOLAX) suppository 10 mg 05-05 03:29: 31 Yes 10mg 10 mg, Rectal, QDAILYPRN, Starting on Sun05/04/23 at 2228, Until Discontinu ed, Routine, Constipati on [facility] simethicone (GAS RELIEF (SIMETHICON E)) chewable tablet 160 mg 05-05 03:29: 31 Yes 160mg 160 mg, Oral, PC+HSPRN, Starting on Sun05/04/23 at 2228, Until Discontinu ed, Routine, Gas [facility] docusate (COLACE) capsule 200 mg 05-05 03:29: 31 Yes 200mg 200 mg, Oral, QDAILYPRN, Starting on Sun05/04/23 at 2228, Until Discontinu ed, Routine, Constipati on [facility] magnesium hydroxide (MILK OF MAGNESIA) 400 mg/5 mL suspension 30 mL 05-05 03:29: 31 Yes 30mL 30 mL, Oral, QDAILYPRN, Starting on Sun05/04/23 at 2228, Until Discontinu ed, Routine, Constipati on [facility] lactated ringers IV infusion 1,000 mL 05-05 03:29: 31 Yes 1000mL at 125 mL/hr, 1,000 mL, IV Infusion, PRN, 1 dose, Starting on Sun05/04/23 at 2228, Until Discontinu ed, Routine [facility] ceFAZolin (ANCEF) 2,000 mg in NaCl 0.9% (NS) 100 mL MINI-BAG 05-04 23:00: 00 05-05 02:24 :00 No 2000mg 2,000 mg, IV Piggyback, ONCE, 1 dose, On Sun05/04/23 at 1800, Administer over 30 Minutes, 100 mL
Reas on for Anti-Infec tive: Surgical Prophylaxi s
Surgi akanksha Prophylaxi s: [facility]
Duration of therapy: within 24 hours of surgery [facility] sodium citrate-cit todd acid (BICITRA) 500-334 mg/5 mL solution 30 mL 05-04 22:07: 30 05-05 01:53 :00 No 30mL 30 mL, Oral, PRE-PROCED URE ONCE, 1 dose, Starting on Sun05/04/23 at 1707, Until Discontinu ed, Routine, Surgery [facility] lactated ringers IV infusion 500 mL 05-04 20:16: 17 05-05 03:31 :17 No 500mL at 999 mL/hr, 500 mL, IV Infusion, PRN - SEE INSTRUCTIO NS, Starting on Sun05/04/23 at 1516, Until Sun05/04/23 at 2231, Routine [facility] D5W-LR IV infusion 1,000 mL 05-04 20:16: 17 05-05 03:31 :17 No 1000mL at 1-125 mL/hr, IV Infusion, TITRATE, Starting on Sun05/04/23 at 1516, Until Sun05/04/23 at 2231, Routine [facility] vit no.124/iron /folic ( VITAMIN ORAL) 04-16 08:32: 07 Yes 1{tbl} Take 1 tablet by mouth daily. [facility] Nitrofurant oin&Nit. Macrocryst (MACROBID) 100 mg capsule 04-07 00:00: 00 04-15 04:59 :00 No [id number] 100mg Take 1 capsule by mouth in the morning and 1 capsule in the evening. Do all this for 7 days. [facility] NaCl 0.9% (NS) bolus infusion 1,000 mL 04-04 23:30: 00 04-04 23:08 :00 No 1000mL at 999 mL/hr, 1,000 mL, IV Piggyback, ONCE, 1 dose, On Sun04/04/23 at 1830, STAT [facility] vit no.124/iron /folic ( VITAMIN ORAL) 04-04 22:24: 38 Yes 1{tbl} Take 1 tablet by mouth daily. [facility] acetaminoph en (TYLENOL ORAL) 03-29 11:11: 00 Yes Take by mouth. [facility] fluticasone propionate 50 mcg/actuati on nasal spray 03-29 00:00: 00 05-06 00:00 :00 No [id number] 2{spray } Use 2 Sprays in each nostril in the morning. [facility] cetirizine 10 mg tablet 03-29 00:00: 00 05-06 00:00 :00 No [id number] 10mg Take 1 tablet by mouth in the morning. [facility] acetaminoph en (TYLENOL ORAL) 03-13 13:18: 22 Yes Take by mouth. [facility] hydroxyprog esterone(PF ) (RAVI AUTO-INJECT OR) 275 mg/1.1 mL injection 275 mg 03-06 20:45: 00 03-06 19:52 :00 No [id number] 275mg [facility] acetaminoph en (TYLENOL ORAL) 03-06 14:50: 53 Yes Take by mouth. [facility] hydroxyprog esterone(PF ) (RAVI AUTO-INJECT OR) 275 mg/1.1 mL injection 275 mg 02-27 16:15: 00 02-27 15:25 :00 No [id number] 275mg [facility] hydroxyprog esterone(PF ) (RAVI AUTO-INJECT OR) 275 mg/1.1 mL injection 275 mg - 20:30: 00 02-20 19:33 :00 No [id number] 275mg [facility] hydroxyprog esterone(PF ) (RAVI AUTO-INJECT OR) 275 mg/1.1 mL injection 275 mg 02-13 19:15: 00 02-13 18:22 :00 No [id number] 275mg [facility] acetaminoph en (TYLENOL ORAL) 02-13 13:13: 52 Yes Take by mouth. [facility] hydroxyprog esterone(PF ) (RAVI AUTO-INJECT OR) 275 mg/1.1 mL injection 275 mg 02-06 16:15: 00 02-06 15:26 :00 No [id number] 275mg [facility] hydroxyprog esterone(PF ) (RAVI AUTO-INJECT OR) 275 mg/1.1 mL injection 275 mg 01-30 17:30: 00 01-30 16:25 :00 No [id number] 275mg [facility] vit no.124/iron /folic ( VITAMIN ORAL) 01-30 13:47: 22 Yes 1{tbl} Take 1 tablet by mouth daily. [facility] hydroxyprog esterone(PF ) (RAVI AUTO-INJECT OR) 275 mg/1.1 mL injection 275 mg 01-23 21:00: 00 01-23 20:06 :00 No [id number] 275mg [facility] hydroxyprog esterone(PF ) (RAVI AUTO-INJECT OR) 275 mg/1.1 mL injection 275 mg 01-16 17:15: 00 01-16 16:29 :00 No [id number] 275mg [facility] hydroxyprog esterone(PF ) (RAVI AUTO-INJECT OR) 275 mg/1.1 mL injection 275 mg 01-09 16:15: 00 01-09 15:30 :00 No [id number] 275mg [facility] RAVI, PF, 275 mg/1.1 mL injection 01-03 00:00: 00 03-13 00:00 :00 No [facility] hydroxyprog esterone(PF ) (RAVI AUTO-INJECT OR) 275 mg/1.1 mL injection 275 mg 01-02 16:00: 00 01-02 15:13 :00 No [id number] 275mg [facility] Nitrofurant oin&Nit. Macrocryst (MACROBID) 100 mg capsule 100 mg 12-29 04:15: 00 12-29 04:15 :00 No 100mg 100 mg, Oral, ONCE NOW, 1 dose, On [place] 12/28/22 at 2230, Routine
Reason for Anti-Infec tive: Documented Infection< br>Documen hayden Infection Site: Urine
D uration of Therapy: Other (see Comments) [facility] vit no.124/iron /folic ( VITAMIN ORAL) 12-28 22:56: 47 Yes 1{tbl} Take 1 tablet by mouth daily. [facility] Nitrofurant oin&Nit. Macrocryst 100 mg capsule 12-28 00:00: 00 01-16 00:00 :00 No [id number] 100mg Take 1 capsule by mouth in the morning and 1 capsule in the evening. [facility] hydroxyprog esterone(PF ) (RAVI AUTO-INJECT OR) 275 mg/1.1 mL injection 275 mg 12-26 16:15: 00 12-26 15:30 :00 No [id number] 275mg [facility] hydroxyprog esterone(PF ) (RAVI AUTO-INJECT OR) 275 mg/1.1 mL injection 275 mg 12-20 17:15: 00 12-20 16:12 :00 No [id number] 275mg [facility] hydroxyprog esterone(PF ) (RAVI AUTO-INJECT OR) 275 mg/1.1 mL injection 275 mg 12-13 20:15: 00 12-13 19:30 :00 No [id number] 275mg [facility] loratadine (CLARITIN) 10 mg tablet 2021-11 00:00: 00 03-29 00:00 :00 No [id number] 10mg Take 1 tablet by mouth in the morning. [facility] Nitrofurant oin&Nit. Macrocryst (MACROBID) 100 mg capsule 2021-11 00:00: 00 10-31 05:59 :00 No [id number] 100mg Take 1 capsule by mouth in the morning and 1 capsule in the evening. Do all this for 7 days. [facility] cephALEXin 500 mg capsule 2021-11 00:00: 00 10-23 00:00 :00 No [id number] 500mg Take 1 capsule by mouth 4 (four) times daily for 7 days. [facility] vit no.124/iron /folic ( VITAMIN ORAL) 2021-11 13:19: 24 Yes 1{tbl} Take 1 tablet by mouth daily. [facility] pantoprazol e 20 mg EC tablet 8-16 00:00: 00 05-06 00:00 :00 No [id number] 20mg Take 1 tablet by mouth in the morning. [facility] ID NOW COVID-19 TEST KIT Kit 04-20 00:00: 00 05-06 00:00 :00 No TEST DIRECTED TODAY [facility] Bismuth Subsalicyla te (PEPTO-BISM OL MAX ST) 525 mg/15 mL suspension 02-27 00:00: 00 05-06 00:00 :00 No [id number] 15mL Take 15 mL by mouth 4 (four) times daily. [facility] clarithromy kim 250 mg tablet 4-04 00:00: 00 05-06 00:00 :00 No [id number] 500mg Take 2 tablets by mouth 2 (two) times daily. [facility] metroNIDAZO LE 500 mg tablet 4-04 00:00: 00 04-19 00:00 :00 No [id number] 500mg Take 1 tablet by mouth every 12 (twelve) hours. [facility] PANTOPRAZOL E 20 mg EC tablet 01-24 00:00: 00 07-11 00:00 :00 No [id number] 20mg TAKE 1 TABLET BY MOUTH DAILY [facility] Cholecalcif justin, Vitamin D3, (D3-2000) 50 mcg (2,000 unit) capsule 2020-11 00:00: 00 05-06 00:00 :00 No [id number] 2000U Take 1 capsule by mouth daily. Take with food [facility] cyclobenzap rine 5 mg tablet 2020-11 00:00: 00 05-06 00:00 :00 No [id number] 5mg Take 1 tablet by mouth 3 (three) times daily as needed for Muscle Spasms. [facility] pantoprazol e 20 mg EC tablet 2020-11 00:00: 00 01-24 00:00 :00 No [id number] 20mg Take 1 tablet by mouth daily. [facility] amitriptyli ne 10 mg tablet 8-10 00:00: 00 05-06 00:00 :00 No [id number] 10mg Take 1 tablet by mouth at bedtime. [facility] SUMAtriptan 25 mg tablet 8-10 00:00: 00 05-06 00:00 :00 No [id number] Take 1 tab po x 1 dose PRN migraine headache, may repeat x 1 dose in 2 hours if needed; Max 2 doses per 24 hours [facility] Apple Cider Vinegar Apple Cider Vinegar No Apple Cider Vinegar Pantoprazol e Sodium 40 MG Pantoprazol e Sodium 40 MG No 1{table t} QD Pantoprazo le Sodium 40 MG Multi Vitamin - Multi Vitamin - No 1{table t} QD Multi Vitamin - hydrOXYzine HCl 10 MG hydrOXYzine HCl 10 MG No 1{table t_as_ne eded} QD hydrOXYzin e HCl 10 MG Pantoprazol e Sodium 40 MG Pantoprazol e Sodium 40 MG No 1{table t} QD Pantoprazo le Sodium 40 MG Cranberry Cranberry No Cranberry Multi Vitamin - Multi Vitamin - No 1{table t} QD Multi Vitamin - hydrOXYzine HCl 10 MG hydrOXYzine HCl 10 MG No 1{table t_as_ne eded} QD hydrOXYzin e HCl 10 MG Cranberry Cranberry No Cranberry Cranberry Cranberry No Cranberry hydrOXYzine HCl 10 MG hydrOXYzine HCl 10 MG No 1{table t_as_ne eded} QD hydrOXYzin e HCl 10 MG Multi Vitamin - Multi Vitamin - No 1{table t} QD Multi Vitamin - Pantoprazol e Sodium 40 MG Pantoprazol e Sodium 40 MG No 1{table t} QD Pantoprazo le Sodium 40 MG Multi Vitamin - Multi Vitamin - No 1{table t} QD Multi Vitamin - Cranberry Cranberry No Cranberry hydrOXYzine HCl 10 MG hydrOXYzine HCl 10 MG No 1{table t_as_ne eded} QD hydrOXYzin e HCl 10 MG Multi Vitamin - Multi Vitamin - No 1{table t} QD Multi Vitamin - Pantoprazol e Sodium 40 MG Pantoprazol e Sodium 40 MG No 1{table t} QD Pantoprazo le Sodium 40 MG Cranberry Cranberry No Cranberry hydrOXYzine HCl 10 MG hydrOXYzine HCl 10 MG No 1{table t_as_ne eded} QD hydrOXYzin e HCl 10 MG Multi Vitamin - Multi Vitamin - No 1{table t} QD Multi Vitamin - Pantoprazol e Sodium 40 MG Pantoprazol e Sodium 40 MG No 1{table t} QD Pantoprazo le Sodium 40 MG Cranberry Cranberry No Cranberry hydrOXYzine HCl 10 MG hydrOXYzine HCl 10 MG No 1{table t_as_ne eded} QD hydrOXYzin e HCl 10 MG Multi Vitamin - Multi Vitamin - No 1{table t} QD Multi Vitamin - Pantoprazol e Sodium 40 MG Pantoprazol e Sodium 40 MG No 1{table t} QD Pantoprazo le Sodium 40 MG Cranberry Cranberry No Cranberry hydrOXYzine HCl 10 MG hydrOXYzine HCl 10 MG No 1{table t_as_ne eded} QD hydrOXYzin e HCl 10 MG Multi Vitamin - Multi Vitamin - No 1{table t} QD Multi Vitamin - Pantoprazol e Sodium 40 MG Pantoprazol e Sodium 40 MG No 1{table t} QD Pantoprazo le Sodium 40 MG Cranberry Cranberry No Cranberry hydrOXYzine HCl 10 MG hydrOXYzine HCl 10 MG No 1{table t_as_ne eded} QD hydrOXYzin e HCl 10 MG Multi Vitamin - Multi Vitamin - No 1{table t} QD Multi Vitamin - Pantoprazol e Sodium 40 MG Pantoprazol e Sodium 40 MG No 1{table t} QD Pantoprazo le Sodium 40 MG Cranberry Cranberry No Cranberry Multi Vitamin - Multi Vitamin - No 1{table t} QD Multi Vitamin - hydrOXYzine HCl 10 MG hydrOXYzine HCl 10 MG No 1{table t_as_ne eded} QD hydrOXYzin e HCl 10 MG Cranberry Cranberry No Cranberry Pantoprazol e Sodium 40 MG Pantoprazol e Sodium 40 MG No 1{table t} QD Pantoprazo le Sodium 40 MG Multi Vitamin - Multi Vitamin - No 1{table t} QD Multi Vitamin - hydrOXYzine HCl 10 MG hydrOXYzine HCl 10 MG No 1{table t_as_ne eded} QD hydrOXYzin e HCl 10 MG Cranberry Cranberry No Cranberry Pantoprazol e Sodium 40 MG Pantoprazol e Sodium 40 MG No 1{table t} QD Pantoprazo le Sodium 40 MG Multi Vitamin - Multi Vitamin - No 1{table t} QD Multi Vitamin - Cranberry Cranberry No Cranberry hydrOXYzine HCl 10 MG hydrOXYzine HCl 10 MG No 1{table t_as_ne eded} QD hydrOXYzin e HCl 10 MG Multi Vitamin - Multi Vitamin - No 1{table t} QD Multi Vitamin - Pantoprazol e Sodium 40 MG Pantoprazol e Sodium 40 MG No 1{table t} QD Pantoprazo le Sodium 40 MG Cranberry Cranberry No Cranberry hydrOXYzine HCl 10 MG hydrOXYzine HCl 10 MG No 1{table t_as_ne eded} QD hydrOXYzin e HCl 10 MG Multi Vitamin - Multi Vitamin - No 1{table t} QD Multi Vitamin - Pantoprazol e Sodium 40 MG Pantoprazol e Sodium 40 MG No 1{table t} QD Pantoprazo le Sodium 40 MG Apple Cider Vinegar Apple Cider Vinegar No Apple Cider Vinegar Pantoprazol e Sodium 40 MG Pantoprazol e Sodium 40 MG No 1{table t} QD Pantoprazo le Sodium 40 MG Multi Vitamin - Multi Vitamin - No 1{table t} QD Multi Vitamin - hydrOXYzine HCl 10 MG hydrOXYzine HCl 10 MG No 1{table t_as_ne eded} QD hydrOXYzin e HCl 10 MG Immunizations Ordered Immunization Name Filled Immunization Name Date Status Comments Source Influenza Virus Vaccine Quad IM, Preserv and ABX Free 6 MO-64 YRS 2022-10-18 00:00:00 Completed [facility] Influenza Virus Vaccine Quad IM, Preserv and ABX Free 6 MO-64 YRS 2022-10-18 00:00:00 Completed [facility] Influenza Virus Vaccine Quad IM, Preserv and ABX Free 6 MO-64 YRS 2022-10-18 00:00:00 Completed [facility] Influenza Virus Vaccine Quad IM, Preserv and ABX Free 6 MO-64 YRS 2022-10-18 00:00:00 Completed [facility] Influenza Virus Vaccine Quad IM, Preserv and ABX Free 6 MO-64 YRS 2022-10-18 00:00:00 Completed [facility] Influenza Virus Vaccine Quad IM, Preserv and ABX Free 6 MO-64 YRS 2022-10-18 00:00:00 Completed [facility] Influenza Virus Vaccine Quad IM, Preserv and ABX Free 6 MO-64 YRS 2022-10-18 00:00:00 Completed [facility] Influenza Virus Vaccine Quad IM, Preserv and ABX Free 6 MO-64 YRS 2022-10-18 00:00:00 Completed [facility] Influenza Virus Vaccine Quad IM, Preserv and ABX Free 6 MO-64 YRS 2022-10-18 00:00:00 Completed [facility] Influenza Virus Vaccine Quad IM, Preserv and ABX Free 6 MO-64 YRS 2022-10-18 00:00:00 Completed [facility] Influenza Virus Vaccine Quad IM, Preserv and ABX Free 6 MO-64 YRS 2022-10-18 00:00:00 Completed [facility] Influenza Virus Vaccine Quad IM, Preserv and ABX Free 6 MO-64 YRS 2022-10-18 00:00:00 Completed [facility] Influenza Virus Vaccine Quad IM, Preserv and ABX Free 6 MO-64 YRS 2022-10-18 00:00:00 Completed [facility] Influenza Virus Vaccine Quad IM, Preserv and ABX Free 6 MO-64 YRS 2022-10-18 00:00:00 Completed [facility] Influenza Virus Vaccine Quad IM, Preserv and ABX Free 6 MO-64 YRS 2022-10-18 00:00:00 Completed [facility] Influenza Virus Vaccine Quad IM, Preserv and ABX Free 6 MO-64 YRS 2022-10-18 00:00:00 Completed [facility] Influenza Virus Vaccine Quad IM, Preserv and ABX Free 6 MO-64 YRS 2022-10-18 00:00:00 Completed [facility] Influenza Virus Vaccine Quad IM, Preserv and ABX Free 6 MO-64 YRS 2022-10-18 00:00:00 Completed [facility] Influenza Virus Vaccine Quad IM, Preserv and ABX Free 6 MO-64 YRS 2022-10-18 00:00:00 Completed [facility] Influenza Virus Vaccine Quad IM, Preserv and ABX Free 6 MO-64 YRS 2022-10-18 00:00:00 Completed [facility] Influenza Virus Vaccine Quad IM, Preserv and ABX Free 6 MO-64 YRS 2022-10-18 00:00:00 Completed [facility] Influenza Virus Vaccine Quad IM, Preserv and ABX Free 6 MO-64 YRS 2022-10-18 00:00:00 Completed [facility] Influenza Virus Vaccine Quad IM, Preserv and ABX Free 6 MO-64 YRS 2022-10-18 00:00:00 Completed [facility] Influenza Virus Vaccine Quad IM, Preserv and ABX Free 6 MO-64 YRS 2022-10-18 00:00:00 Completed [facility] Influenza Virus Vaccine Quad IM, Preserv and ABX Free 6 MO-64 YRS 2022-10-18 00:00:00 Completed [facility] Influenza Virus Vaccine Quad IM, Preserv and ABX Free 6 MO-64 YRS 2022-10-18 00:00:00 Completed [facility] Influenza Virus Vaccine Quad IM, Preserv and ABX Free 6 MO-64 YRS 2022-10-18 00:00:00 Completed [facility] Influenza Virus Vaccine Quad IM, Preserv and ABX Free 6 MO-64 YRS 2022-10-18 00:00:00 Completed [facility] Influenza Virus Vaccine Quad IM, Preserv and ABX Free 6 MO-64 YRS 2022-10-18 00:00:00 Completed [facility] Influenza Virus Vaccine Quad IM, Preserv and ABX Free 6 MO-64 YRS 2022-10-18 00:00:00 Completed [facility] Influenza Virus Vaccine Quad IM, Preserv and ABX Free 6 MO-64 YRS 2022-10-18 00:00:00 Completed [facility] Influenza Virus Vaccine Quad IM, Preserv and ABX Free 6 MO-64 YRS 2022-10-18 00:00:00 Completed [facility] Influenza Virus Vaccine Quad IM, Preserv and ABX Free 6 MO-64 YRS 2022-10-18 00:00:00 Completed [facility] Influenza Virus Vaccine Quad IM, Preserv and ABX Free 6 MO-64 YRS 2022-10-18 00:00:00 Completed [facility] Influenza Virus Vaccine Quad IM, Preserv and ABX Free 6 MO-64 YRS 2022-10-18 00:00:00 Completed [facility] Influenza Virus Vaccine Quad IM, Preserv and ABX Free 6 MO-64 YRS 2022-10-18 00:00:00 Completed [facility] Influenza Virus Vaccine Quad IM, Preserv and ABX Free 6 MO-64 YRS 2022-10-18 00:00:00 Completed [facility] Influenza Virus Vaccine Quad IM, Preserv and ABX Free 6 MO-64 YRS 2022-10-18 00:00:00 Completed [facility] Influenza Virus Vaccine Quad IM, Preserv and ABX Free 6 MO-64 YRS 2022-10-18 00:00:00 Completed [facility] Influenza Virus Vaccine Quad IM, Preserv and ABX Free 6 MO-64 YRS 2022-10-18 00:00:00 Completed [facility] Influenza Virus Vaccine Quad IM, Preserv and ABX Free 6 MO-64 YRS 2022-10-18 00:00:00 Completed [facility] Influenza Virus Vaccine Quad IM, Preserv and ABX Free 6 MO-64 YRS 2022-10-18 00:00:00 Completed [facility] Influenza Virus Vaccine Quad IM, Preserv and ABX Free 6 MO-64 YRS 2022-10-18 00:00:00 Completed [facility] Influenza Virus Vaccine Quad IM, Preserv and ABX Free 6 MO-64 YRS 2022-10-18 00:00:00 Completed [facility] Influenza Virus Vaccine Quad IM, Preserv and ABX Free 6 MO-64 YRS 2022-10-18 00:00:00 Completed [facility] Influenza Virus Vaccine Quad IM, Preserv and ABX Free 6 MO-64 YRS 2022-10-18 00:00:00 Completed [facility] Influenza Virus Vaccine Quad IM, Preserv and ABX Free 6 MO-64 YRS 2022-10-18 00:00:00 Completed [facility] Influenza Virus Vaccine Quad IM, Preserv and ABX Free 6 MO-64 YRS 2022-10-18 00:00:00 Completed [facility] Influenza Virus Vaccine Quad IM, Preserv and ABX Free 6 MO-64 YRS 2022-10-18 00:00:00 Completed [facility] Influenza Virus Vaccine Quad IM, Preserv and ABX Free 6 MO-64 YRS 2022-10-18 00:00:00 Completed [facility] Influenza Virus Vaccine Quad IM, Preserv and ABX Free 6 MO-64 YRS 2022-10-18 00:00:00 Completed [facility] Influenza Virus Vaccine Quad IM, Preserv and ABX Free 6 MO-64 YRS 2022-10-18 00:00:00 Completed [facility] Influenza Virus Vaccine Quad IM, Preserv and ABX Free 6 MO-64 YRS 2022-10-18 00:00:00 Completed [facility] Influenza Virus Vaccine Quad IM, Preserv and ABX Free 6 MO-64 YRS 2022-10-18 00:00:00 Completed [facility] Influenza Virus Vaccine Quad IM, Preserv and ABX Free 6 MO-64 YRS 2022-10-18 00:00:00 Completed [facility] Influenza Virus Vaccine Quad IM, Preserv and ABX Free 6 MO-64 YRS 2022-10-18 00:00:00 Completed [facility] Influenza Virus Vaccine Quad IM, Preserv and ABX Free 6 MO-64 YRS 2022-10-18 00:00:00 Completed [facility] Influenza Virus Vaccine Quad IM, Preserv and ABX Free 6 MO-64 YRS 2022-10-18 00:00:00 Completed [facility] Influenza Virus Vaccine Quad IM, Preserv and ABX Free 6 MO-64 YRS 2022-10-18 00:00:00 Completed [facility] Influenza Virus Vaccine Quad IM, Preserv and ABX Free 6 MO-64 YRS 2022-10-18 00:00:00 Completed [facility] Influenza Virus Vaccine Quad IM, Preserv and ABX Free 6 MO-64 YRS 2022-10-18 00:00:00 Completed [facility] Influenza Virus Vaccine Quad IM, Preserv and ABX Free 6 MO-64 YRS 2022-10-18 00:00:00 Completed [facility] Influenza Virus Vaccine Quad IM, Preserv and ABX Free 6 MO-64 YRS 2022-10-18 00:00:00 Completed [facility] Influenza Virus Vaccine Quad IM, Preserv and ABX Free 6 MO-64 YRS 2022-10-18 00:00:00 Completed [facility] Influenza Virus Vaccine Quad IM, Preserv and ABX Free 6 MO-64 YRS 2022-10-18 00:00:00 Completed [facility] Influenza Virus Vaccine Quad IM, Preserv and ABX Free 6 MO-64 YRS 2022-10-18 00:00:00 Completed [facility] Influenza Virus Vaccine Quad IM, Preserv and ABX Free 6 MO-64 YRS 2022-10-18 00:00:00 Completed [facility] Influenza Virus Vaccine Quad IM, Preserv and ABX Free 6 MO-64 YRS 2022-10-18 00:00:00 Completed [facility] Influenza Virus Vaccine Quad IM, Preserv and ABX Free 6 MO-64 YRS 2022-10-18 00:00:00 Completed [facility] Influenza Virus Vaccine Quad IM, Preserv and ABX Free 6 MO-64 YRS 2022-10-18 00:00:00 Completed [facility] Influenza Virus Vaccine Quad IM, Preserv and ABX Free 6 MO-64 YRS 2022-10-18 00:00:00 Completed [facility] Influenza Virus Vaccine Quad IM, Preserv and ABX Free 6 MO-64 YRS 2022-10-18 00:00:00 Completed [facility] Influenza Virus Vaccine Quad IM, Preserv and ABX Free 6 MO-64 YRS 2022-10-18 00:00:00 Completed [facility] Influenza Virus Vaccine Quad IM, Preserv and ABX Free 6 MO-64 YRS 2022-10-18 00:00:00 Completed [facility] Influenza Virus Vaccine Quad IM, Preserv and ABX Free 6 MO-64 YRS 2022-10-18 00:00:00 Completed [facility] Influenza Virus Vaccine Quad IM, Preserv and ABX Free 6 MO-64 YRS 2022-10-18 00:00:00 Completed [facility] Influenza Virus Vaccine Quad IM, Preserv and ABX Free 6 MO-64 YRS 2022-10-18 00:00:00 Completed [facility] Influenza Virus Vaccine Quad IM, Preserv and ABX Free 6 MO-64 YRS 2022-10-18 00:00:00 Completed [facility] Influenza Virus Vaccine Quad IM, Preserv and ABX Free 6 MO-64 YRS 2022-10-18 00:00:00 Completed [facility] Influenza Virus Vaccine Quad IM, Preserv and ABX Free 6 MO-64 YRS 2022-10-18 00:00:00 Completed [facility] Influenza Virus Vaccine Quad IM, Preserv and ABX Free 6 MO-64 YRS 2022-10-18 00:00:00 Completed [facility] Influenza Virus Vaccine Quad IM, Preserv and ABX Free 6 MO-64 YRS 2022-10-18 00:00:00 Completed [facility] Influenza Virus Vaccine Quad IM, Preserv and ABX Free 6 MO-64 YRS 2022-10-18 00:00:00 Completed [facility] Influenza Virus Vaccine Quad IM, Preserv and ABX Free 6 MO-64 YRS 2022-10-18 00:00:00 Completed [facility] Influenza Virus Vaccine Quad IM, Preserv and ABX Free 6 MO-64 YRS 2022-10-18 00:00:00 Completed [facility] Influenza Virus Vaccine Quad IM, Preserv and ABX Free 6 MO-64 YRS 2022-10-18 00:00:00 Completed [facility] Influenza Virus Vaccine Quad IM, Preserv and ABX Free 6 MO-64 YRS 2022-10-18 00:00:00 Completed [facility] Influenza Virus Vaccine Quad IM, Preserv and ABX Free 6 MO-64 YRS 2022-10-18 00:00:00 Completed [facility] Influenza Virus Vaccine Quad IM, Preserv and ABX Free 6 MO-64 YRS 2022-10-18 00:00:00 Completed [facility] Influenza Virus Vaccine Quad IM, Preserv and ABX Free 6 MO-64 YRS 2022-10-18 00:00:00 Completed [facility] Influenza Virus Vaccine Quad IM, Preserv and ABX Free 6 MO-64 YRS 2022-10-18 00:00:00 Completed [facility] Influenza Virus Vaccine Quad IM, Preserv and ABX Free 6 MO-64 YRS 2022-10-18 00:00:00 Completed [facility] Influenza Virus Vaccine Quad IM, Preserv and ABX Free 6 MO-64 YRS 2022-10-18 00:00:00 Completed [facility] Influenza Virus Vaccine Quad IM, Preserv and ABX Free 6 MO-64 YRS 2021-11-03 00:00:00 Completed [facility] Influenza Virus Vaccine Quad IM, Preserv and ABX Free 6 MO-64 YRS 2021-11-03 00:00:00 Completed [facility] Influenza Virus Vaccine Quad IM, Preserv and ABX Free 6 MO-64 YRS 2021-11-03 00:00:00 Completed [facility] Influenza Virus Vaccine Quad IM, Preserv and ABX Free 6 MO-64 YRS 2021-11-03 00:00:00 Completed [facility] Influenza Virus Vaccine Quad IM, Preserv and ABX Free 6 MO-64 YRS 2021-11-03 00:00:00 Completed [facility] Influenza Virus Vaccine Quad IM, Preserv and ABX Free 6 MO-64 YRS 2021-11-03 00:00:00 Completed [facility] Influenza Virus Vaccine Quad IM, Preserv and ABX Free 6 MO-64 YRS 2021-11-03 00:00:00 Completed [facility] Influenza Virus Vaccine Quad IM, Preserv and ABX Free 6 MO-64 YRS 2021-11-03 00:00:00 Completed [facility] Influenza Virus Vaccine Quad IM, Preserv and ABX Free 6 MO-64 YRS 2021-11-03 00:00:00 Completed [facility] Influenza Virus Vaccine Quad IM, Preserv and ABX Free 6 MO-64 YRS 2021-11-03 00:00:00 Completed [facility] Influenza Virus Vaccine Quad IM, Preserv and ABX Free 6 MO-64 YRS 2021-11-03 00:00:00 Completed [facility] Influenza Virus Vaccine Quad IM, Preserv and ABX Free 6 MO-64 YRS 2021-11-03 00:00:00 Completed [facility] Influenza Virus Vaccine Quad IM, Preserv and ABX Free 6 MO-64 YRS 2021-11-03 00:00:00 Completed [facility] Influenza Virus Vaccine Quad IM, Preserv and ABX Free 6 MO-64 YRS 2021-11-03 00:00:00 Completed [facility] Influenza Virus Vaccine Quad IM, Preserv and ABX Free 6 MO-64 YRS 2021-11-03 00:00:00 Completed [facility] Influenza Virus Vaccine Quad IM, Preserv and ABX Free 6 MO-64 YRS 2021-11-03 00:00:00 Completed [facility] Influenza Virus Vaccine Quad IM, Preserv and ABX Free 6 MO-64 YRS 2021-11-03 00:00:00 Completed [facility] Influenza Virus Vaccine Quad IM, Preserv and ABX Free 6 MO-64 YRS 2021-11-03 00:00:00 Completed [facility] Influenza Virus Vaccine Quad IM, Preserv and ABX Free 6 MO-64 YRS 2021-11-03 00:00:00 Completed [facility] Influenza Virus Vaccine Quad IM, Preserv and ABX Free 6 MO-64 YRS 2021-11-03 00:00:00 Completed [facility] Influenza Virus Vaccine Quad IM, Preserv and ABX Free 6 MO-64 YRS 2021-11-03 00:00:00 Completed [facility] Influenza Virus Vaccine Quad IM, Preserv and ABX Free 6 MO-64 YRS 2021-11-03 00:00:00 Completed [facility] Influenza Virus Vaccine Quad IM, Preserv and ABX Free 6 MO-64 YRS 2021-11-03 00:00:00 Completed [facility] Influenza Virus Vaccine Quad IM, Preserv and ABX Free 6 MO-64 YRS 2021-11-03 00:00:00 Completed [facility] Influenza Virus Vaccine Quad IM, Preserv and ABX Free 6 MO-64 YRS 2021-11-03 00:00:00 Completed [facility] Influenza Virus Vaccine Quad IM, Preserv and ABX Free 6 MO-64 YRS 2021-11-03 00:00:00 Completed [facility] Influenza Virus Vaccine Quad IM, Preserv and ABX Free 6 MO-64 YRS 2021-11-03 00:00:00 Completed [facility] Influenza Virus Vaccine Quad IM, Preserv and ABX Free 6 MO-64 YRS 2021-11-03 00:00:00 Completed [facility] Influenza Virus Vaccine Quad IM, Preserv and ABX Free 6 MO-64 YRS 2021-11-03 00:00:00 Completed [facility] Influenza Virus Vaccine Quad IM, Preserv and ABX Free 6 MO-64 YRS 2021-11-03 00:00:00 Completed [facility] Influenza Virus Vaccine Quad IM, Preserv and ABX Free 6 MO-64 YRS 2021-11-03 00:00:00 Completed [facility] Influenza Virus Vaccine Quad IM, Preserv and ABX Free 6 MO-64 YRS 2021-11-03 00:00:00 Completed [facility] Influenza Virus Vaccine Quad IM, Preserv and ABX Free 6 MO-64 YRS 2021-11-03 00:00:00 Completed [facility] Influenza Virus Vaccine Quad IM, Preserv and ABX Free 6 MO-64 YRS 2021-11-03 00:00:00 Completed [facility] Influenza Virus Vaccine Quad IM, Preserv and ABX Free 6 MO-64 YRS 2021-11-03 00:00:00 Completed [facility] Influenza Virus Vaccine Quad IM, Preserv and ABX Free 6 MO-64 YRS 2021-11-03 00:00:00 Completed [facility] Influenza Virus Vaccine Quad IM, Preserv and ABX Free 6 MO-64 YRS 2021-11-03 00:00:00 Completed [facility] Influenza Virus Vaccine Quad IM, Preserv and ABX Free 6 MO-64 YRS 2021-11-03 00:00:00 Completed [facility] Influenza Virus Vaccine Quad IM, Preserv and ABX Free 6 MO-64 YRS 2021-11-03 00:00:00 Completed [facility] Influenza Virus Vaccine Quad IM, Preserv and ABX Free 6 MO-64 YRS 2021-11-03 00:00:00 Completed [facility] Influenza Virus Vaccine Quad IM, Preserv and ABX Free 6 MO-64 YRS 2021-11-03 00:00:00 Completed [facility] Influenza Virus Vaccine Quad IM, Preserv and ABX Free 6 MO-64 YRS 2021-11-03 00:00:00 Completed [facility] Influenza Virus Vaccine Quad IM, Preserv and ABX Free 6 MO-64 YRS 2021-11-03 00:00:00 Completed [facility] Influenza Virus Vaccine Quad IM, Preserv and ABX Free 6 MO-64 YRS 2021-11-03 00:00:00 Completed [facility] Influenza Virus Vaccine Quad IM, Preserv and ABX Free 6 MO-64 YRS 2021-11-03 00:00:00 Completed [facility] Influenza Virus Vaccine Quad IM, Preserv and ABX Free 6 MO-64 YRS 2021-11-03 00:00:00 Completed [facility] Influenza Virus Vaccine Quad IM, Preserv and ABX Free 6 MO-64 YRS 2021-11-03 00:00:00 Completed [facility] Influenza Virus Vaccine Quad IM, Preserv and ABX Free 6 MO-64 YRS 2021-11-03 00:00:00 Completed [facility] Influenza Virus Vaccine Quad IM, Preserv and ABX Free 6 MO-64 YRS 2021-11-03 00:00:00 Completed [facility] Influenza Virus Vaccine Quad IM, Preserv and ABX Free 6 MO-64 YRS 2021-11-03 00:00:00 Completed [facility] Influenza Virus Vaccine Quad IM, Preserv and ABX Free 6 MO-64 YRS 2021-11-03 00:00:00 Completed [facility] Influenza Virus Vaccine Quad IM, Preserv and ABX Free 6 MO-64 YRS 2021-11-03 00:00:00 Completed [facility] Influenza Virus Vaccine Quad IM, Preserv and ABX Free 6 MO-64 YRS 2021-11-03 00:00:00 Completed [facility] Influenza Virus Vaccine Quad IM, Preserv and ABX Free 6 MO-64 YRS 2021-11-03 00:00:00 Completed [facility] Influenza Virus Vaccine Quad IM, Preserv and ABX Free 6 MO-64 YRS 2021-11-03 00:00:00 Completed [facility] Influenza Virus Vaccine Quad IM, Preserv and ABX Free 6 MO-64 YRS 2021-11-03 00:00:00 Completed [facility] Influenza Virus Vaccine Quad IM, Preserv and ABX Free 6 MO-64 YRS 2021-11-03 00:00:00 Completed [facility] Influenza Virus Vaccine Quad IM, Preserv and ABX Free 6 MO-64 YRS 2021-11-03 00:00:00 Completed [facility] Influenza Virus Vaccine Quad IM, Preserv and ABX Free 6 MO-64 YRS 2021-11-03 00:00:00 Completed [facility] Influenza Virus Vaccine Quad IM, Preserv and ABX Free 6 MO-64 YRS 2021-11-03 00:00:00 Completed [facility] Influenza Virus Vaccine Quad IM, Preserv and ABX Free 6 MO-64 YRS 2021-11-03 00:00:00 Completed [facility] Influenza Virus Vaccine Quad IM, Preserv and ABX Free 6 MO-64 YRS 2021-11-03 00:00:00 Completed [facility] Influenza Virus Vaccine Quad IM, Preserv and ABX Free 6 MO-64 YRS 2021-11-03 00:00:00 Completed [facility] Influenza Virus Vaccine Quad IM, Preserv and ABX Free 6 MO-64 YRS 2021-11-03 00:00:00 Completed [facility] Influenza Virus Vaccine Quad IM, Preserv and ABX Free 6 MO-64 YRS 2021-11-03 00:00:00 Completed [facility] Influenza Virus Vaccine Quad IM, Preserv and ABX Free 6 MO-64 YRS 2021-11-03 00:00:00 Completed [facility] Influenza Virus Vaccine Quad IM, Preserv and ABX Free 6 MO-64 YRS 2021-11-03 00:00:00 Completed [facility] Influenza Virus Vaccine Quad IM, Preserv and ABX Free 6 MO-64 YRS 2021-11-03 00:00:00 Completed [facility] Influenza Virus Vaccine Quad IM, Preserv and ABX Free 6 MO-64 YRS 2021-11-03 00:00:00 Completed [facility] Influenza Virus Vaccine Quad IM, Preserv and ABX Free 6 MO-64 YRS 2021-11-03 00:00:00 Completed [facility] Influenza Virus Vaccine Quad IM, Preserv and ABX Free 6 MO-64 YRS 2021-11-03 00:00:00 Completed [facility] Influenza Virus Vaccine Quad IM, Preserv and ABX Free 6 MO-64 YRS 2021-11-03 00:00:00 Completed [facility] Influenza Virus Vaccine Quad IM, Preserv and ABX Free 6 MO-64 YRS 2021-11-03 00:00:00 Completed [facility] Influenza Virus Vaccine Quad IM, Preserv and ABX Free 6 MO-64 YRS 2021-11-03 00:00:00 Completed [facility] Influenza Virus Vaccine Quad IM, Preserv and ABX Free 6 MO-64 YRS 2021-11-03 00:00:00 Completed [facility] Influenza Virus Vaccine Quad IM, Preserv and ABX Free 6 MO-64 YRS 2021-11-03 00:00:00 Completed [facility] Influenza Virus Vaccine Quad IM, Preserv and ABX Free 6 MO-64 YRS 2021-11-03 00:00:00 Completed [facility] Influenza Virus Vaccine Quad IM, Preserv and ABX Free 6 MO-64 YRS 2021-11-03 00:00:00 Completed [facility] Influenza Virus Vaccine Quad IM, Preserv and ABX Free 6 MO-64 YRS 2021-11-03 00:00:00 Completed [facility] Influenza Virus Vaccine Quad IM, Preserv and ABX Free 6 MO-64 YRS 2021-11-03 00:00:00 Completed [facility] Influenza Virus Vaccine Quad IM, Preserv and ABX Free 6 MO-64 YRS 2021-11-03 00:00:00 Completed [facility] Influenza Virus Vaccine Quad IM, Preserv and ABX Free 6 MO-64 YRS 2021-11-03 00:00:00 Completed [facility] Influenza Virus Vaccine Quad IM, Preserv and ABX Free 6 MO-64 YRS 2021-11-03 00:00:00 Completed [facility] Influenza Virus Vaccine Quad IM, Preserv and ABX Free 6 MO-64 YRS 2021-11-03 00:00:00 Completed [facility] Influenza Virus Vaccine Quad IM, Preserv and ABX Free 6 MO-64 YRS 2021-11-03 00:00:00 Completed [facility] Influenza Virus Vaccine Quad IM, Preserv and ABX Free 6 MO-64 YRS 2021-11-03 00:00:00 Completed [facility] Influenza Virus Vaccine Quad IM, Preserv and ABX Free 6 MO-64 YRS 2021-11-03 00:00:00 Completed [facility] Influenza Virus Vaccine Quad IM, Preserv and ABX Free 6 MO-64 YRS 2021-11-03 00:00:00 Completed [facility] Influenza Virus Vaccine Quad IM, Preserv and ABX Free 6 MO-64 YRS 2021-11-03 00:00:00 Completed [facility] Influenza Virus Vaccine Quad IM, Preserv and ABX Free 6 MO-64 YRS 2021-11-03 00:00:00 Completed [facility] Influenza Virus Vaccine Quad IM, Preserv and ABX Free 6 MO-64 YRS 2021-11-03 00:00:00 Completed [facility] Influenza Virus Vaccine Quad IM, Preserv and ABX Free 6 MO-64 YRS 2021-11-03 00:00:00 Completed [facility] Influenza Virus Vaccine Quad IM, Preserv and ABX Free 6 MO-64 YRS 2021-11-03 00:00:00 Completed [facility] Influenza Virus Vaccine Quad IM, Preserv and ABX Free 6 MO-64 YRS 2021-11-03 00:00:00 Completed [facility] Influenza Virus Vaccine Quad IM, Preserv and ABX Free 6 MO-64 YRS 2021-11-03 00:00:00 Completed [facility] Influenza Virus Vaccine Quad IM, Preserv and ABX Free 6 MO-64 YRS 2021-11-03 00:00:00 Completed [facility] Influenza Virus Vaccine Quad IM, Preserv and ABX Free 6 MO-64 YRS 2021-11-03 00:00:00 Completed [facility] Influenza Virus Vaccine Quad IM, Preserv and ABX Free 6 MO-64 YRS 2021-11-03 00:00:00 Completed [facility] Influenza Virus Vaccine Quad IM, Preserv and ABX Free 6 MO-64 YRS 2021-11-03 00:00:00 Completed [facility] Influenza Virus Vaccine Quad IM, Preserv and ABX Free 6 MO-64 YRS 2021-11-03 00:00:00 Completed [facility] Influenza Virus Vaccine Quad IM, Preserv and ABX Free 6 MO-64 YRS 2021-11-03 00:00:00 Completed [facility] Influenza Virus Vaccine Quad IM, Preserv and ABX Free 6 MO-64 YRS 2021-11-03 00:00:00 Completed [facility] Influenza Virus Vaccine Quad IM, Preserv and ABX Free 6 MO-64 YRS 2021-11-03 00:00:00 Completed [facility] Influenza Virus Vaccine Quad IM, Preserv and ABX Free 6 MO-64 YRS 2021-11-03 00:00:00 Completed [facility] Influenza Virus Vaccine Quad IM, Preserv and ABX Free 6 MO-64 YRS 2021-11-03 00:00:00 Completed [facility] Influenza Virus Vaccine Quad IM, Preserv and ABX Free 6 MO-64 YRS 2021-11-03 00:00:00 Completed [facility] Influenza Virus Vaccine Quad IM, Preserv and ABX Free 6 MO-64 YRS 2021-11-03 00:00:00 Completed [facility] Influenza Virus Vaccine Quad IM, Preserv and ABX Free 6 MO-64 YRS 2021-11-03 00:00:00 Completed [facility] Influenza Virus Vaccine Quad IM, Preserv and ABX Free 6 MO-64 YRS 2021-11-03 00:00:00 Completed [facility] SARS-COV-2 COVID-19 MODERNA VACCINE 2021-06-10 00:00:00 Completed [facility] SARS-COV-2 COVID-19 MODERNA VACCINE 2021-06-10 00:00:00 Completed [facility] SARS-COV-2 COVID-19 MODERNA 12+ YRS VACCINE 2021-06-10 00:00:00 Completed [facility] SARS-COV-2 COVID-19 MODERNA 12+ YRS VACCINE 2021-06-10 00:00:00 Completed [facility] SARS-COV-2 COVID-19 MODERNA 12+ YRS VACCINE 2021-06-10 00:00:00 Completed [facility] SARS-COV-2 COVID-19 MODERNA 12+ YRS VACCINE 2021-06-10 00:00:00 Completed [facility] SARS-COV-2 COVID-19 MODERNA 12+ YRS VACCINE 2021-06-10 00:00:00 Completed [facility] SARS-COV-2 COVID-19 MODERNA 12+ YRS VACCINE 2021-06-10 00:00:00 Completed [facility] SARS-COV-2 COVID-19 MODERNA 12+ YRS VACCINE 2021-06-10 00:00:00 Completed [facility] SARS-COV-2 COVID-19 MODERNA 12+ YRS VACCINE 2021-06-10 00:00:00 Completed [facility] SARS-COV-2 COVID-19 MODERNA 12+ YRS VACCINE 2021-06-10 00:00:00 Completed [facility] SARS-COV-2 COVID-19 MODERNA 12+ YRS VACCINE 2021-06-10 00:00:00 Completed [facility] SARS-COV-2 COVID-19 MODERNA 12+ YRS VACCINE 2021-06-10 00:00:00 Completed [facility] SARS-COV-2 COVID-19 MODERNA 12+ YRS VACCINE 2021-06-10 00:00:00 Completed [facility] SARS-COV-2 COVID-19 MODERNA 12+ YRS VACCINE 2021-06-10 00:00:00 Completed [facility] SARS-COV-2 COVID-19 MODERNA 12+ YRS VACCINE 2021-06-10 00:00:00 Completed [facility] SARS-COV-2 COVID-19 MODERNA 12+ YRS VACCINE 2021-06-10 00:00:00 Completed [facility] SARS-COV-2 COVID-19 MODERNA 12+ YRS VACCINE 2021-06-10 00:00:00 Completed [facility] SARS-COV-2 COVID-19 MODERNA 12+ YRS VACCINE 2021-06-10 00:00:00 Completed [facility] SARS-COV-2 COVID-19 MODERNA 12+ YRS VACCINE 2021-06-10 00:00:00 Completed [facility] SARS-COV-2 COVID-19 MODERNA 12+ YRS VACCINE 2021-06-10 00:00:00 Completed [facility] SARS-COV-2 COVID-19 MODERNA 12+ YRS VACCINE 2021-06-10 00:00:00 Completed [facility] SARS-COV-2 COVID-19 MODERNA 12+ YRS VACCINE 2021-06-10 00:00:00 Completed [facility] SARS-COV-2 COVID-19 MODERNA 12+ YRS VACCINE 2021-06-10 00:00:00 Completed [facility] SARS-COV-2 COVID-19 MODERNA 12+ YRS VACCINE 2021-06-10 00:00:00 Completed [facility] SARS-COV-2 COVID-19 MODERNA 12+ YRS VACCINE 2021-06-10 00:00:00 Completed [facility] SARS-COV-2 COVID-19 MODERNA 12+ YRS VACCINE 2021-06-10 00:00:00 Completed [facility] SARS-COV-2 COVID-19 MODERNA 12+ YRS VACCINE 2021-06-10 00:00:00 Completed [facility] SARS-COV-2 COVID-19 MODERNA 12+ YRS VACCINE 2021-06-10 00:00:00 Completed [facility] SARS-COV-2 COVID-19 MODERNA 12+ YRS VACCINE 2021-06-10 00:00:00 Completed [facility] SARS-COV-2 COVID-19 MODERNA 12+ YRS VACCINE 2021-06-10 00:00:00 Completed [facility] SARS-COV-2 COVID-19 MODERNA 12+ YRS VACCINE 2021-06-10 00:00:00 Completed [facility] SARS-COV-2 COVID-19 MODERNA 12+ YRS VACCINE 2021-06-10 00:00:00 Completed [facility] SARS-COV-2 COVID-19 MODERNA 12+ YRS VACCINE 2021-06-10 00:00:00 Completed [facility] SARS-COV-2 COVID-19 MODERNA 12+ YRS VACCINE 2021-06-10 00:00:00 Completed [facility] SARS-COV-2 COVID-19 MODERNA 12+ YRS VACCINE 2021-06-10 00:00:00 Completed [facility] SARS-COV-2 COVID-19 MODERNA 12+ YRS VACCINE 2021-06-10 00:00:00 Completed [facility] SARS-COV-2 COVID-19 MODERNA 12+ YRS VACCINE 2021-06-10 00:00:00 Completed [facility] SARS-COV-2 COVID-19 MODERNA 12+ YRS VACCINE 2021-06-10 00:00:00 Completed [facility] SARS-COV-2 COVID-19 MODERNA 12+ YRS VACCINE 2021-06-10 00:00:00 Completed [facility] SARS-COV-2 COVID-19 MODERNA 12+ YRS VACCINE 2021-06-10 00:00:00 Completed [facility] SARS-COV-2 COVID-19 MODERNA 12+ YRS VACCINE 2021-06-10 00:00:00 Completed [facility] SARS-COV-2 COVID-19 MODERNA 12+ YRS VACCINE 2021-06-10 00:00:00 Completed [facility] SARS-COV-2 COVID-19 MODERNA 12+ YRS VACCINE 2021-06-10 00:00:00 Completed [facility] SARS-COV-2 COVID-19 MODERNA 12+ YRS VACCINE 2021-06-10 00:00:00 Completed [facility] SARS-COV-2 COVID-19 MODERNA 12+ YRS VACCINE 2021-06-10 00:00:00 Completed [facility] SARS-COV-2 COVID-19 MODERNA 12+ YRS VACCINE 2021-06-10 00:00:00 Completed [facility] SARS-COV-2 COVID-19 MODERNA 12+ YRS VACCINE 2021-06-10 00:00:00 Completed [facility] SARS-COV-2 COVID-19 MODERNA 12+ YRS VACCINE 2021-06-10 00:00:00 Completed [facility] SARS-COV-2 COVID-19 MODERNA 12+ YRS VACCINE 2021-06-10 00:00:00 Completed [facility] SARS-COV-2 COVID-19 MODERNA 12+ YRS VACCINE 2021-06-10 00:00:00 Completed [facility] SARS-COV-2 COVID-19 MODERNA 12+ YRS VACCINE 2021-06-10 00:00:00 Completed [facility] SARS-COV-2 COVID-19 MODERNA 12+ YRS VACCINE 2021-06-10 00:00:00 Completed [facility] SARS-COV-2 COVID-19 MODERNA 12+ YRS VACCINE 2021-06-10 00:00:00 Completed [facility] SARS-COV-2 COVID-19 MODERNA 12+ YRS VACCINE 2021-06-10 00:00:00 Completed [facility] SARS-COV-2 COVID-19 MODERNA 12+ YRS VACCINE 2021-06-10 00:00:00 Completed [facility] SARS-COV-2 COVID-19 MODERNA 12+ YRS VACCINE 2021-06-10 00:00:00 Completed [facility] SARS-COV-2 COVID-19 MODERNA 12+ YRS VACCINE 2021-06-10 00:00:00 Completed [facility] SARS-COV-2 COVID-19 MODERNA 12+ YRS VACCINE 2021-06-10 00:00:00 Completed [facility] SARS-COV-2 COVID-19 MODERNA 12+ YRS VACCINE 2021-06-10 00:00:00 Completed [facility] SARS-COV-2 COVID-19 MODERNA 12+ YRS VACCINE 2021-06-10 00:00:00 Completed [facility] SARS-COV-2 COVID-19 MODERNA 12+ YRS VACCINE 2021-06-10 00:00:00 Completed [facility] SARS-COV-2 COVID-19 MODERNA 12+ YRS VACCINE 2021-06-10 00:00:00 Completed [facility] SARS-COV-2 COVID-19 MODERNA 12+ YRS VACCINE 2021-06-10 00:00:00 Completed [facility] SARS-COV-2 COVID-19 MODERNA 12+ YRS VACCINE 2021-06-10 00:00:00 Completed [facility] SARS-COV-2 COVID-19 MODERNA 12+ YRS VACCINE 2021-06-10 00:00:00 Completed [facility] SARS-COV-2 COVID-19 MODERNA 12+ YRS VACCINE 2021-06-10 00:00:00 Completed [facility] SARS-COV-2 COVID-19 MODERNA 12+ YRS VACCINE 2021-06-10 00:00:00 Completed [facility] SARS-COV-2 COVID-19 MODERNA 12+ YRS VACCINE 2021-06-10 00:00:00 Completed [facility] SARS-COV-2 COVID-19 MODERNA 12+ YRS VACCINE 2021-06-10 00:00:00 Completed [facility] SARS-COV-2 COVID-19 MODERNA 12+ YRS VACCINE 2021-06-10 00:00:00 Completed [facility] SARS-COV-2 COVID-19 MODERNA 12+ YRS VACCINE 2021-06-10 00:00:00 Completed [facility] SARS-COV-2 COVID-19 MODERNA 12+ YRS VACCINE 2021-06-10 00:00:00 Completed [facility] SARS-COV-2 COVID-19 MODERNA 12+ YRS VACCINE 2021-06-10 00:00:00 Completed [facility] SARS-COV-2 COVID-19 MODERNA 12+ YRS VACCINE 2021-06-10 00:00:00 Completed [facility] SARS-COV-2 COVID-19 MODERNA 12+ YRS VACCINE 2021-06-10 00:00:00 Completed [facility] SARS-COV-2 COVID-19 MODERNA 12+ YRS VACCINE 2021-06-10 00:00:00 Completed [facility] SARS-COV-2 COVID-19 MODERNA 12+ YRS VACCINE 2021-06-10 00:00:00 Completed [facility] SARS-COV-2 COVID-19 MODERNA 12+ YRS VACCINE 2021-06-10 00:00:00 Completed [facility] SARS-COV-2 COVID-19 MODERNA 12+ YRS VACCINE 2021-06-10 00:00:00 Completed [facility] SARS-COV-2 COVID-19 MODERNA 12+ YRS VACCINE 2021-06-10 00:00:00 Completed [facility] SARS-COV-2 COVID-19 MODERNA 12+ YRS VACCINE 2021-06-10 00:00:00 Completed [facility] SARS-COV-2 COVID-19 MODERNA 12+ YRS VACCINE 2021-06-10 00:00:00 Completed [facility] SARS-COV-2 COVID-19 MODERNA 12+ YRS VACCINE 2021-06-10 00:00:00 Completed [facility] SARS-COV-2 COVID-19 MODERNA 12+ YRS VACCINE 2021-06-10 00:00:00 Completed [facility] SARS-COV-2 COVID-19 MODERNA 12+ YRS VACCINE 2021-06-10 00:00:00 Completed [facility] SARS-COV-2 COVID-19 MODERNA 12+ YRS VACCINE 2021-06-10 00:00:00 Completed [facility] SARS-COV-2 COVID-19 MODERNA 12+ YRS VACCINE 2021-06-10 00:00:00 Completed [facility] SARS-COV-2 COVID-19 MODERNA 12+ YRS VACCINE 2021-06-10 00:00:00 Completed [facility] SARS-COV-2 COVID-19 MODERNA 12+ YRS VACCINE 2021-06-10 00:00:00 Completed [facility] SARS-COV-2 COVID-19 MODERNA 12+ YRS VACCINE 2021-06-10 00:00:00 Completed [facility] SARS-COV-2 COVID-19 MODERNA 12+ YRS VACCINE 2021-06-10 00:00:00 Completed [facility] SARS-COV-2 COVID-19 MODERNA 12+ YRS VACCINE 2021-06-10 00:00:00 Completed [facility] SARS-COV-2 COVID-19 MODERNA 12+ YRS VACCINE 2021-06-10 00:00:00 Completed [facility] SARS-COV-2 COVID-19 MODERNA 12+ YRS VACCINE 2021-06-10 00:00:00 Completed [facility] SARS-COV-2 COVID-19 MODERNA 12+ YRS VACCINE 2021-06-10 00:00:00 Completed [facility] SARS-COV-2 COVID-19 MODERNA 12+ YRS VACCINE 2021-06-10 00:00:00 Completed [facility] SARS-COV-2 COVID-19 MODERNA 12+ YRS VACCINE 2021-06-10 00:00:00 Completed [facility] SARS-COV-2 COVID-19 MODERNA 12+ YRS VACCINE 2021-06-10 00:00:00 Completed [facility] SARS-COV-2 COVID-19 MODERNA 12+ YRS VACCINE 2021-06-10 00:00:00 Completed [facility] SARS-COV-2 COVID-19 MODERNA 12+ YRS VACCINE 2021-06-10 00:00:00 Completed [facility] SARS-COV-2 COVID-19 MODERNA 12+ YRS VACCINE 2021-06-10 00:00:00 Completed [facility] SARS-COV-2 COVID-19 MODERNA 12+ YRS VACCINE 2021-06-10 00:00:00 Completed [facility] SARS-COV-2 COVID-19 MODERNA 12+ YRS VACCINE 2021-06-10 00:00:00 Completed [facility] SARS-COV-2 COVID-19 MODERNA 12+ YRS VACCINE 2021-06-10 00:00:00 Completed [facility] SARS-COV-2 COVID-19 MODERNA 12+ YRS VACCINE 2021-06-10 00:00:00 Completed [facility] SARS-COV-2 COVID-19 MODERNA 12+ YRS VACCINE 2021-06-10 00:00:00 Completed [facility] SARS-COV-2 COVID-19 MODERNA 12+ YRS VACCINE 2021-06-10 00:00:00 Completed [facility] SARS-COV-2 COVID-19 MODERNA 12+ YRS VACCINE 2021-06-10 00:00:00 Completed [facility] SARS-COV-2 COVID-19 MODERNA VACCINE 2021-05-13 00:00:00 Completed [facility] SARS-COV-2 COVID-19 MODERNA VACCINE 2021-05-13 00:00:00 Completed [facility] SARS-COV-2 COVID-19 MODERNA 12+ YRS VACCINE 2021-05-13 00:00:00 Completed [facility] SARS-COV-2 COVID-19 MODERNA 12+ YRS VACCINE 2021-05-13 00:00:00 Completed [facility] SARS-COV-2 COVID-19 MODERNA 12+ YRS VACCINE 2021-05-13 00:00:00 Completed [facility] SARS-COV-2 COVID-19 MODERNA 12+ YRS VACCINE 2021-05-13 00:00:00 Completed [facility] SARS-COV-2 COVID-19 MODERNA 12+ YRS VACCINE 2021-05-13 00:00:00 Completed [facility] SARS-COV-2 COVID-19 MODERNA 12+ YRS VACCINE 2021-05-13 00:00:00 Completed [facility] SARS-COV-2 COVID-19 MODERNA 12+ YRS VACCINE 2021-05-13 00:00:00 Completed [facility] SARS-COV-2 COVID-19 MODERNA 12+ YRS VACCINE 2021-05-13 00:00:00 Completed [facility] SARS-COV-2 COVID-19 MODERNA 12+ YRS VACCINE 2021-05-13 00:00:00 Completed [facility] SARS-COV-2 COVID-19 MODERNA 12+ YRS VACCINE 2021-05-13 00:00:00 Completed [facility] SARS-COV-2 COVID-19 MODERNA 12+ YRS VACCINE 2021-05-13 00:00:00 Completed [facility] SARS-COV-2 COVID-19 MODERNA 12+ YRS VACCINE 2021-05-13 00:00:00 Completed [facility] SARS-COV-2 COVID-19 MODERNA 12+ YRS VACCINE 2021-05-13 00:00:00 Completed [facility] SARS-COV-2 COVID-19 MODERNA 12+ YRS VACCINE 2021-05-13 00:00:00 Completed [facility] SARS-COV-2 COVID-19 MODERNA 12+ YRS VACCINE 2021-05-13 00:00:00 Completed [facility] SARS-COV-2 COVID-19 MODERNA 12+ YRS VACCINE 2021-05-13 00:00:00 Completed [facility] SARS-COV-2 COVID-19 MODERNA 12+ YRS VACCINE 2021-05-13 00:00:00 Completed [facility] SARS-COV-2 COVID-19 MODERNA 12+ YRS VACCINE 2021-05-13 00:00:00 Completed [facility] SARS-COV-2 COVID-19 MODERNA 12+ YRS VACCINE 2021-05-13 00:00:00 Completed [facility] SARS-COV-2 COVID-19 MODERNA 12+ YRS VACCINE 2021-05-13 00:00:00 Completed [facility] SARS-COV-2 COVID-19 MODERNA 12+ YRS VACCINE 2021-05-13 00:00:00 Completed [facility] SARS-COV-2 COVID-19 MODERNA 12+ YRS VACCINE 2021-05-13 00:00:00 Completed [facility] SARS-COV-2 COVID-19 MODERNA 12+ YRS VACCINE 2021-05-13 00:00:00 Completed [facility] SARS-COV-2 COVID-19 MODERNA 12+ YRS VACCINE 2021-05-13 00:00:00 Completed [facility] SARS-COV-2 COVID-19 MODERNA 12+ YRS VACCINE 2021-05-13 00:00:00 Completed [facility] SARS-COV-2 COVID-19 MODERNA 12+ YRS VACCINE 2021-05-13 00:00:00 Completed [facility] SARS-COV-2 COVID-19 MODERNA 12+ YRS VACCINE 2021-05-13 00:00:00 Completed [facility] SARS-COV-2 COVID-19 MODERNA 12+ YRS VACCINE 2021-05-13 00:00:00 Completed [facility] SARS-COV-2 COVID-19 MODERNA 12+ YRS VACCINE 2021-05-13 00:00:00 Completed [facility] SARS-COV-2 COVID-19 MODERNA 12+ YRS VACCINE 2021-05-13 00:00:00 Completed [facility] SARS-COV-2 COVID-19 MODERNA 12+ YRS VACCINE 2021-05-13 00:00:00 Completed [facility] SARS-COV-2 COVID-19 MODERNA 12+ YRS VACCINE 2021-05-13 00:00:00 Completed [facility] SARS-COV-2 COVID-19 MODERNA 12+ YRS VACCINE 2021-05-13 00:00:00 Completed [facility] SARS-COV-2 COVID-19 MODERNA 12+ YRS VACCINE 2021-05-13 00:00:00 Completed [facility] SARS-COV-2 COVID-19 MODERNA 12+ YRS VACCINE 2021-05-13 00:00:00 Completed [facility] SARS-COV-2 COVID-19 MODERNA 12+ YRS VACCINE 2021-05-13 00:00:00 Completed [facility] SARS-COV-2 COVID-19 MODERNA 12+ YRS VACCINE 2021-05-13 00:00:00 Completed [facility] SARS-COV-2 COVID-19 MODERNA 12+ YRS VACCINE 2021-05-13 00:00:00 Completed [facility] SARS-COV-2 COVID-19 MODERNA 12+ YRS VACCINE 2021-05-13 00:00:00 Completed [facility] SARS-COV-2 COVID-19 MODERNA 12+ YRS VACCINE 2021-05-13 00:00:00 Completed [facility] SARS-COV-2 COVID-19 MODERNA 12+ YRS VACCINE 2021-05-13 00:00:00 Completed [facility] SARS-COV-2 COVID-19 MODERNA 12+ YRS VACCINE 2021-05-13 00:00:00 Completed [facility] SARS-COV-2 COVID-19 MODERNA 12+ YRS VACCINE 2021-05-13 00:00:00 [facility] [facility] SARS-[facility]OV-2 COVID-19 MODERNA 12+ YRS VACCINE 2021-05-13 00:00:00 Completed [facility] SARS-COV-2 COVID-19 MODERNA 12+ YRS VACCINE 2021-05-13 00:00:00 Completed [facility] SARS-COV-2 COVID-19 MODERNA 12+ YRS VACCINE 2021-05-13 00:00:00 Completed [facility] SARS-COV-2 COVID-19 MODERNA 12+ YRS VACCINE 2021-05-13 00:00:00 Completed [facility] SARS-COV-2 COVID-19 MODERNA 12+ YRS VACCINE 2021-05-13 00:00:00 Completed [facility] SARS-COV-2 COVID-19 MODERNA 12+ YRS VACCINE 2021-05-13 00:00:00 Completed [facility] SARS-COV-2 COVID-19 MODERNA 12+ YRS VACCINE 2021-05-13 00:00:00 Completed [facility] SARS-COV-2 COVID-19 MODERNA 12+ YRS VACCINE 2021-05-13 00:00:00 Completed [facility] SARS-COV-2 COVID-19 MODERNA 12+ YRS VACCINE 2021-05-13 00:00:00 Completed [facility] SARS-COV-2 COVID-19 MODERNA 12+ YRS VACCINE 2021-05-13 00:00:00 Completed [facility] SARS-COV-2 COVID-19 MODERNA 12+ YRS VACCINE 2021-05-13 00:00:00 Completed [facility] SARS-COV-2 COVID-19 MODERNA 12+ YRS VACCINE 2021-05-13 00:00:00 Completed [facility] SARS-COV-2 COVID-19 MODERNA 12+ YRS VACCINE 2021-05-13 00:00:00 Completed [facility] SARS-COV-2 COVID-19 MODERNA 12+ YRS VACCINE 2021-05-13 00:00:00 Completed [facility] SARS-COV-2 COVID-19 MODERNA 12+ YRS VACCINE 2021-05-13 00:00:00 Completed [facility] SARS-COV-2 COVID-19 MODERNA 12+ YRS VACCINE 2021-05-13 00:00:00 Completed [facility] SARS-COV-2 COVID-19 MODERNA 12+ YRS VACCINE 2021-05-13 00:00:00 Completed [facility] SARS-COV-2 COVID-19 MODERNA 12+ YRS VACCINE 2021-05-13 00:00:00 Completed [facility] SARS-COV-2 COVID-19 MODERNA 12+ YRS VACCINE 2021-05-13 00:00:00 Completed [facility] SARS-COV-2 COVID-19 MODERNA 12+ YRS VACCINE 2021-05-13 00:00:00 Completed [facility] SARS-COV-2 COVID-19 MODERNA 12+ YRS VACCINE 2021-05-13 00:00:00 Completed [facility] SARS-COV-2 COVID-19 MODERNA 12+ YRS VACCINE 2021-05-13 00:00:00 Completed [facility] SARS-COV-2 COVID-19 MODERNA 12+ YRS VACCINE 2021-05-13 00:00:00 Completed [facility] SARS-COV-2 COVID-19 MODERNA 12+ YRS VACCINE 2021-05-13 00:00:00 Completed [facility] SARS-COV-2 COVID-19 MODERNA 12+ YRS VACCINE 2021-05-13 00:00:00 Completed [facility] SARS-COV-2 COVID-19 MODERNA 12+ YRS VACCINE 2021-05-13 00:00:00 Completed [facility] SARS-COV-2 COVID-19 MODERNA 12+ YRS VACCINE 2021-05-13 00:00:00 Completed [facility] SARS-COV-2 COVID-19 MODERNA 12+ YRS VACCINE 2021-05-13 00:00:00 Completed [facility] SARS-COV-2 COVID-19 MODERNA 12+ YRS VACCINE 2021-05-13 00:00:00 Completed [facility] SARS-COV-2 COVID-19 MODERNA 12+ YRS VACCINE 2021-05-13 00:00:00 Completed [facility] SARS-COV-2 COVID-19 MODERNA 12+ YRS VACCINE 2021-05-13 00:00:00 Completed [facility] SARS-COV-2 COVID-19 MODERNA 12+ YRS VACCINE 2021-05-13 00:00:00 Completed [facility] SARS-COV-2 COVID-19 MODERNA 12+ YRS VACCINE 2021-05-13 00:00:00 Completed [facility] SARS-COV-2 COVID-19 MODERNA 12+ YRS VACCINE 2021-05-13 00:00:00 Completed [facility] SARS-COV-2 COVID-19 MODERNA 12+ YRS VACCINE 2021-05-13 00:00:00 Completed [facility] SARS-COV-2 COVID-19 MODERNA 12+ YRS VACCINE 2021-05-13 00:00:00 Completed [facility] SARS-COV-2 COVID-19 MODERNA 12+ YRS VACCINE 2021-05-13 00:00:00 Completed [facility] SARS-COV-2 COVID-19 MODERNA 12+ YRS VACCINE 2021-05-13 00:00:00 Completed [facility] SARS-COV-2 COVID-19 MODERNA 12+ YRS VACCINE 2021-05-13 00:00:00 Completed [facility] SARS-COV-2 COVID-19 MODERNA 12+ YRS VACCINE 2021-05-13 00:00:00 Completed [facility] SARS-COV-2 COVID-19 MODERNA 12+ YRS VACCINE 2021-05-13 00:00:00 Completed [facility] SARS-COV-2 COVID-19 MODERNA 12+ YRS VACCINE 2021-05-13 00:00:00 Completed [facility] SARS-COV-2 COVID-19 MODERNA 12+ YRS VACCINE 2021-05-13 00:00:00 Completed [facility] SARS-COV-2 COVID-19 MODERNA 12+ YRS VACCINE 2021-05-13 00:00:00 Completed [facility] SARS-COV-2 COVID-19 MODERNA 12+ YRS VACCINE 2021-05-13 00:00:00 Completed [facility] SARS-COV-2 COVID-19 MODERNA 12+ YRS VACCINE 2021-05-13 00:00:00 Completed [facility] SARS-COV-2 COVID-19 MODERNA 12+ YRS VACCINE 2021-05-13 00:00:00 Completed [facility] SARS-COV-2 COVID-19 MODERNA 12+ YRS VACCINE 2021-05-13 00:00:00 Completed [facility] SARS-COV-2 COVID-19 MODERNA 12+ YRS VACCINE 2021-05-13 00:00:00 Completed [facility] SARS-COV-2 COVID-19 MODERNA 12+ YRS VACCINE 2021-05-13 00:00:00 Completed [facility] SARS-COV-2 COVID-19 MODERNA 12+ YRS VACCINE 2021-05-13 00:00:00 Completed [facility] SARS-COV-2 COVID-19 MODERNA 12+ YRS VACCINE 2021-05-13 00:00:00 Completed [facility] SARS-COV-2 COVID-19 MODERNA 12+ YRS VACCINE 2021-05-13 00:00:00 Completed [facility] SARS-COV-2 COVID-19 MODERNA 12+ YRS VACCINE 2021-05-13 00:00:00 Completed [facility] SARS-COV-2 COVID-19 MODERNA 12+ YRS VACCINE 2021-05-13 00:00:00 Completed [facility] SARS-COV-2 COVID-19 MODERNA 12+ YRS VACCINE 2021-05-13 00:00:00 Completed [facility] SARS-COV-2 COVID-19 MODERNA 12+ YRS VACCINE 2021-05-13 00:00:00 Completed [facility] SARS-COV-2 COVID-19 MODERNA 12+ YRS VACCINE 2021-05-13 00:00:00 Completed [facility] SARS-COV-2 COVID-19 MODERNA 12+ YRS VACCINE 2021-05-13 00:00:00 Completed [facility] SARS-COV-2 COVID-19 MODERNA 12+ YRS VACCINE 2021-05-13 00:00:00 Completed [facility] SARS-COV-2 COVID-19 MODERNA 12+ YRS VACCINE 2021-05-13 00:00:00 Completed [facility] SARS-COV-2 COVID-19 MODERNA 12+ YRS VACCINE 2021-05-13 00:00:00 Completed [facility] SARS-COV-2 COVID-19 MODERNA 12+ YRS VACCINE 2021-05-13 00:00:00 Completed [facility] SARS-COV-2 COVID-19 MODERNA 12+ YRS VACCINE 2021-05-13 00:00:00 Completed [facility] Influenza Virus Vaccine Quad .5 mL IM 6+ MO 2021-01-04 00:00:00 Completed [facility] Influenza Virus Vaccine Quad .5 mL IM 6+ MO 2021-01-04 00:00:00 Completed [facility] Influenza Virus Vaccine Quad .5 mL IM 6+ MO 2021-01-04 00:00:00 Completed [facility] Influenza Virus Vaccine Quad .5 mL IM 6+ MO 2021-01-04 00:00:00 Completed [facility] Influenza Virus Vaccine Quad .5 mL IM 6+ MO 2021-01-04 00:00:00 Completed [facility] Influenza Virus Vaccine Quad .5 mL IM 6+ MO 2021-01-04 00:00:00 Completed [facility] Influenza Virus Vaccine Quad .5 mL IM 6+ MO 2021-01-04 00:00:00 Completed [facility] Influenza Virus Vaccine Quad .5 mL IM 6+ MO 2021-01-04 00:00:00 Completed [facility] Influenza Virus Vaccine Quad .5 mL IM 6+ MO 2021-01-04 00:00:00 Completed [facility] Influenza Virus Vaccine Quad .5 mL IM 6+ MO 2021-01-04 00:00:00 Completed [facility] Influenza Virus Vaccine Quad .5 mL IM 6+ MO 2021-01-04 00:00:00 Completed [facility] Influenza Virus Vaccine Quad .5 mL IM 6+ MO 2021-01-04 00:00:00 Completed [facility] Influenza Virus Vaccine Quad .5 mL IM 6+ MO 2021-01-04 00:00:00 Completed [facility] Influenza Virus Vaccine Quad .5 mL IM 6+ MO 2021-01-04 00:00:00 Completed [facility] Influenza Virus Vaccine Quad .5 mL IM 6+ MO 2021-01-04 00:00:00 Completed [facility] Influenza Virus Vaccine Quad .5 mL IM 6+ MO 2021-01-04 00:00:00 Completed [facility] Influenza Virus Vaccine Quad .5 mL IM 6+ MO 2021-01-04 00:00:00 Completed [facility] Influenza Virus Vaccine Quad .5 mL IM 6+ MO 2021-01-04 00:00:00 Completed [facility] Influenza Virus Vaccine Quad .5 mL IM 6+ MO 2021-01-04 00:00:00 Completed [facility] Influenza Virus Vaccine Quad .5 mL IM 6+ MO 2021-01-04 00:00:00 Completed [facility] Influenza Virus Vaccine Quad .5 mL IM 6+ MO 2021-01-04 00:00:00 Completed [facility] Influenza Virus Vaccine Quad .5 mL IM 6+ MO 2021-01-04 00:00:00 Completed [facility] Influenza Virus Vaccine Quad .5 mL IM 6+ MO 2021-01-04 00:00:00 Completed [facility] Influenza Virus Vaccine Quad .5 mL IM 6+ MO 2021-01-04 00:00:00 Completed [facility] Influenza Virus Vaccine Quad .5 mL IM 6+ MO 2021-01-04 00:00:00 Completed [facility] Influenza Virus Vaccine Quad .5 mL IM 6+ MO 2021-01-04 00:00:00 Completed [facility] Influenza Virus Vaccine Quad .5 mL IM 6+ MO 2021-01-04 00:00:00 Completed [facility] Influenza Virus Vaccine Quad .5 mL IM 6+ MO 2021-01-04 00:00:00 Completed [facility] Influenza Virus Vaccine Quad .5 mL IM 6+ MO 2021-01-04 00:00:00 Completed [facility] Influenza Virus Vaccine Quad .5 mL IM 6+ MO 2021-01-04 00:00:00 Completed [facility] Influenza Virus Vaccine Quad .5 mL IM 6+ MO 2021-01-04 00:00:00 Completed [facility] Influenza Virus Vaccine Quad .5 mL IM 6+ MO 2021-01-04 00:00:00 Completed [facility] Influenza Virus Vaccine Quad .5 mL IM 6+ MO 2021-01-04 00:00:00 Completed [facility] Influenza Virus Vaccine Quad .5 mL IM 6+ MO 2021-01-04 00:00:00 Completed [facility] Influenza Virus Vaccine Quad .5 mL IM 6+ MO 2021-01-04 00:00:00 Completed [facility] Influenza Virus Vaccine Quad .5 mL IM 6+ MO 2021-01-04 00:00:00 Completed [facility] Influenza Virus Vaccine Quad .5 mL IM 6+ MO 2021-01-04 00:00:00 Completed [facility] Influenza Virus Vaccine Quad .5 mL IM 6+ MO 2021-01-04 00:00:00 Completed [facility] Influenza Virus Vaccine Quad .5 mL IM 6+ MO 2021-01-04 00:00:00 Completed [facility] Influenza Virus Vaccine Quad .5 mL IM 6+ MO 2021-01-04 00:00:00 Completed [facility] Influenza Virus Vaccine Quad .5 mL IM 6+ MO 2021-01-04 00:00:00 Completed [facility] Influenza Virus Vaccine Quad .5 mL IM 6+ MO 2021-01-04 00:00:00 Completed [facility] Influenza Virus Vaccine Quad .5 mL IM 6+ MO 2021-01-04 00:00:00 Completed [facility] Influenza Virus Vaccine Quad .5 mL IM 6+ MO 2021-01-04 00:00:00 Completed [facility] Influenza Virus Vaccine Quad .5 mL IM 6+ MO 2021-01-04 00:00:00 Completed [facility] Influenza Virus Vaccine Quad .5 mL IM 6+ MO 2021-01-04 00:00:00 Completed [facility] Influenza Virus Vaccine Quad .5 mL IM 6+ MO 2021-01-04 00:00:00 Completed [facility] Influenza Virus Vaccine Quad .5 mL IM 6+ MO 2021-01-04 00:00:00 Completed [facility] Influenza Virus Vaccine Quad .5 mL IM 6+ MO 2021-01-04 00:00:00 Completed [facility] Influenza Virus Vaccine Quad .5 mL IM 6+ MO 2021-01-04 00:00:00 Completed [facility] Influenza Virus Vaccine Quad .5 mL IM 6+ MO 2021-01-04 00:00:00 Completed [facility] Influenza Virus Vaccine Quad .5 mL IM 6+ MO 2021-01-04 00:00:00 Completed [facility] Influenza Virus Vaccine Quad .5 mL IM 6+ MO 2021-01-04 00:00:00 Completed [facility] Influenza Virus Vaccine Quad .5 mL IM 6+ MO 2021-01-04 00:00:00 Completed [facility] Influenza Virus Vaccine Quad .5 mL IM 6+ MO 2021-01-04 00:00:00 Completed [facility] Influenza Virus Vaccine Quad .5 mL IM 6+ MO 2021-01-04 00:00:00 Completed [facility] Influenza Virus Vaccine Quad .5 mL IM 6+ MO 2021-01-04 00:00:00 Completed [facility] Influenza Virus Vaccine Quad .5 mL IM 6+ MO 2021-01-04 00:00:00 Completed [facility] Influenza Virus Vaccine Quad .5 mL IM 6+ MO 2021-01-04 00:00:00 Completed [facility] Influenza Virus Vaccine Quad .5 mL IM 6+ MO 2021-01-04 00:00:00 Completed [facility] Influenza Virus Vaccine Quad .5 mL IM 6+ MO 2021-01-04 00:00:00 Completed [facility] Influenza Virus Vaccine Quad .5 mL IM 6+ MO 2021-01-04 00:00:00 Completed [facility] Influenza Virus Vaccine Quad .5 mL IM 6+ MO 2021-01-04 00:00:00 Completed [facility] Influenza Virus Vaccine Quad .5 mL IM 6+ MO 2021-01-04 00:00:00 Completed [facility] Influenza Virus Vaccine Quad .5 mL IM 6+ MO 2021-01-04 00:00:00 Completed [facility] Influenza Virus Vaccine Quad .5 mL IM 6+ MO 2021-01-04 00:00:00 Completed [facility] Influenza Virus Vaccine Quad .5 mL IM 6+ MO 2021-01-04 00:00:00 Completed [facility] Influenza Virus Vaccine Quad .5 mL IM 6+ MO 2021-01-04 00:00:00 Completed [facility] Influenza Virus Vaccine Quad .5 mL IM 6+ MO 2021-01-04 00:00:00 Completed [facility] Influenza Virus Vaccine Quad .5 mL IM 6+ MO 2021-01-04 00:00:00 Completed [facility] Influenza Virus Vaccine Quad .5 mL IM 6+ MO 2021-01-04 00:00:00 Completed [facility] Influenza Virus Vaccine Quad .5 mL IM 6+ MO 2021-01-04 00:00:00 Completed [facility] Influenza Virus Vaccine Quad .5 mL IM 6+ MO 2021-01-04 00:00:00 Completed [facility] Influenza Virus Vaccine Quad .5 mL IM 6+ MO 2021-01-04 00:00:00 Completed [facility] Influenza Virus Vaccine Quad .5 mL IM 6+ MO 2021-01-04 00:00:00 Completed [facility] Influenza Virus Vaccine Quad .5 mL IM 6+ MO 2021-01-04 00:00:00 Completed [facility] Influenza Virus Vaccine Quad .5 mL IM 6+ MO 2021-01-04 00:00:00 Completed [facility] Influenza Virus Vaccine Quad .5 mL IM 6+ MO 2021-01-04 00:00:00 Completed [facility] Influenza Virus Vaccine Quad .5 mL IM 6+ MO 2021-01-04 00:00:00 Completed [facility] Influenza Virus Vaccine Quad .5 mL IM 6+ MO 2021-01-04 00:00:00 Completed [facility] Influenza Virus Vaccine Quad .5 mL IM 6+ MO 2021-01-04 00:00:00 Completed [facility] Influenza Virus Vaccine Quad .5 mL IM 6+ MO 2021-01-04 00:00:00 Completed [facility] Influenza Virus Vaccine Quad .5 mL IM 6+ MO 2021-01-04 00:00:00 Completed [facility] Influenza Virus Vaccine Quad .5 mL IM 6+ MO 2021-01-04 00:00:00 Completed [facility] Influenza Virus Vaccine Quad .5 mL IM 6+ MO 2021-01-04 00:00:00 Completed [facility] Influenza Virus Vaccine Quad .5 mL IM 6+ MO 2021-01-04 00:00:00 Completed [facility] Influenza Virus Vaccine Quad .5 mL IM 6+ MO 2021-01-04 00:00:00 Completed [facility] Influenza Virus Vaccine Quad .5 mL IM 6+ MO 2021-01-04 00:00:00 Completed [facility] Influenza Virus Vaccine Quad .5 mL IM 6+ MO 2021-01-04 00:00:00 Completed [facility] Influenza Virus Vaccine Quad .5 mL IM 6+ MO 2021-01-04 00:00:00 Completed [facility] Influenza Virus Vaccine Quad .5 mL IM 6+ MO 2021-01-04 00:00:00 Completed [facility] Influenza Virus Vaccine Quad .5 mL IM 6+ MO 2021-01-04 00:00:00 Completed [facility] Influenza Virus Vaccine Quad .5 mL IM 6+ MO 2021-01-04 00:00:00 Completed [facility] Influenza Virus Vaccine Quad .5 mL IM 6+ MO 2021-01-04 00:00:00 Completed [facility] Influenza Virus Vaccine Quad .5 mL IM 6+ MO 2021-01-04 00:00:00 Completed [facility] Influenza Virus Vaccine Quad .5 mL IM 6+ MO 2021-01-04 00:00:00 Completed [facility] Influenza Virus Vaccine Quad .5 mL IM 6+ MO 2021-01-04 00:00:00 Completed [facility] Influenza Virus Vaccine Quad .5 mL IM 6+ MO 2021-01-04 00:00:00 Completed [facility] Influenza Virus Vaccine Quad .5 mL IM 6+ MO 2021-01-04 00:00:00 Completed [facility] Influenza Virus Vaccine Quad .5 mL IM 6+ MO 2021-01-04 00:00:00 Completed [facility] Influenza Virus Vaccine Quad .5 mL IM 6+ MO 2021-01-04 00:00:00 Completed [facility] Influenza Virus Vaccine Quad .5 mL IM 6+ MO 2021-01-04 00:00:00 Completed [facility] Influenza Virus Vaccine Quad .5 mL IM 6+ MO 2021-01-04 00:00:00 Completed [facility] Influenza Virus Vaccine Quad .5 mL IM 6+ MO 2021-01-04 00:00:00 Completed [facility] Influenza Virus Vaccine Quad .5 mL IM 6+ MO 2021-01-04 00:00:00 Completed [facility] Influenza Virus Vaccine Quad .5 mL IM 6+ MO 2021-01-04 00:00:00 Completed [facility] Influenza Virus Vaccine Quad .5 mL IM 6+ MO 2021-01-04 00:00:00 Completed [facility] Influenza Virus Vaccine Quad .5 mL IM 6+ MO 2021-01-04 00:00:00 Completed [facility] Influenza Virus Vaccine Quad .5 mL IM 6+ MO 2021-01-04 00:00:00 Completed [facility] TDAP 2017-10-15 00:00:00 Completed [facility] TDAP 2017-10-15 00:00:00 Completed [facility] TDAP 2017-10-15 00:00:00 Completed [facility] TDAP 2017-10-15 00:00:00 Completed [facility] TDAP 2017-10-15 00:00:00 Completed [facility] TDAP 2017-10-15 00:00:00 Completed [facility] TDAP 2017-10-15 00:00:00 Completed [facility] TDAP 2017-10-15 00:00:00 Completed [facility] TDAP 2017-10-15 00:00:00 Completed [facility] TDAP 2017-10-15 00:00:00 Completed [facility] TDAP 2017-10-15 00:00:00 Completed [facility] TDAP 2017-10-15 00:00:00 Completed [facility] TDAP 2017-10-15 00:00:00 Completed [facility] TDAP 2017-10-15 00:00:00 Completed [facility] TDAP 2017-10-15 00:00:00 Completed [facility] TDAP 2017-10-15 00:00:00 Completed [facility] TDAP 2017-10-15 00:00:00 Completed [facility] TDAP 2017-10-15 00:00:00 Completed [facility] TDAP 2017-10-15 00:00:00 Completed [facility] TDAP 2017-10-15 00:00:00 Completed [facility] TDAP 2017-10-15 00:00:00 Completed [facility] TDAP 2017-10-15 00:00:00 Completed [facility] TDAP 2017-10-15 00:00:00 Completed [facility] TDAP 2017-10-15 00:00:00 Completed [facility] TDAP 2017-10-15 00:00:00 Completed [facility] TDAP 2017-10-15 00:00:00 Completed [facility] TDAP 2017-10-15 00:00:00 Completed [facility] TDAP 2017-10-15 00:00:00 Completed [facility] TDAP 2017-10-15 00:00:00 Completed [facility] TDAP 2017-10-15 00:00:00 Completed [facility] TDAP 2017-10-15 00:00:00 Completed [facility] TDAP 2017-10-15 00:00:00 Completed [facility] TDAP 2017-10-15 00:00:00 Completed [facility] TDAP 2017-10-15 00:00:00 Completed [facility] TDAP 2017-10-15 00:00:00 Completed [facility] TDAP 2017-10-15 00:00:00 Completed [facility] TDAP 2017-10-15 00:00:00 Completed [facility] TDAP 2017-10-15 00:00:00 Completed [facility] TDAP 2017-10-15 00:00:00 Completed [facility] TDAP 2017-10-15 00:00:00 Completed [facility] TDAP 2017-10-15 00:00:00 Completed [facility] TDAP 2017-10-15 00:00:00 Completed [facility] TDAP 2017-10-15 00:00:00 Completed [facility] TDAP 2017-10-15 00:00:00 Completed [facility] TDAP 2017-10-15 00:00:00 Completed [facility] TDAP 2017-10-15 00:00:00 Completed [facility] TDAP 2017-10-15 00:00:00 Completed [facility] TDAP 2017-10-15 00:00:00 Completed [facility] TDAP 2017-10-15 00:00:00 Completed [facility] TDAP 2017-10-15 00:00:00 Completed [facility] TDAP 2017-10-15 00:00:00 Completed [facility] TDAP 2017-10-15 00:00:00 Completed [facility] TDAP 2017-10-15 00:00:00 Completed [facility] TDAP 2017-10-15 00:00:00 Completed [facility] TDAP 2017-10-15 00:00:00 Completed [facility] TDAP 2017-10-15 00:00:00 Completed [facility] TDAP 2017-10-15 00:00:00 Completed [facility] TDAP 2017-10-15 00:00:00 Completed [facility] TDAP 2017-10-15 00:00:00 Completed [facility] TDAP 2017-10-15 00:00:00 Completed [facility] TDAP 2017-10-15 00:00:00 Completed [facility] TDAP 2017-10-15 00:00:00 Completed [facility] TDAP 2017-10-15 00:00:00 Completed [facility] TDAP 2017-10-15 00:00:00 Completed [facility] TDAP 2017-10-15 00:00:00 Completed [facility] TDAP 2017-10-15 00:00:00 Completed [facility] TDAP 2017-10-15 00:00:00 Completed [facility] TDAP 2017-10-15 00:00:00 Completed [facility] TDAP 2017-10-15 00:00:00 Completed [facility] TDAP 2017-10-15 00:00:00 Completed [facility] TDAP 2017-10-15 00:00:00 Completed [facility] TDAP 2017-10-15 00:00:00 Completed [facility] TDAP 2017-10-15 00:00:00 Completed [facility] TDAP 2017-10-15 00:00:00 Completed [facility] TDAP 2017-10-15 00:00:00 Completed [facility] TDAP 2017-10-15 00:00:00 Completed [facility] TDAP 2017-10-15 00:00:00 Completed [facility] TDAP 2017-10-15 00:00:00 Completed [facility] TDAP 2017-10-15 00:00:00 Completed [facility] TDAP 2017-10-15 00:00:00 Completed [facility] TDAP 2017-10-15 00:00:00 Completed [facility] TDAP 2017-10-15 00:00:00 Completed [facility] TDAP 2017-10-15 00:00:00 Completed [facility] TDAP 2017-10-15 00:00:00 Completed [facility] TDAP 2017-10-15 00:00:00 Completed [facility] TDAP 2017-10-15 00:00:00 Completed [facility] TDAP 2017-10-15 00:00:00 Completed [facility] TDAP 2017-10-15 00:00:00 Completed [facility] TDAP 2017-10-15 00:00:00 Completed [facility] TDAP 2017-10-15 00:00:00 Completed [facility] TDAP 2017-10-15 00:00:00 Completed [facility] TDAP 2017-10-15 00:00:00 Completed [facility] TDAP 2017-10-15 00:00:00 Completed [facility] TDAP 2017-10-15 00:00:00 Completed [facility] TDAP 2017-10-15 00:00:00 Completed [facility] TDAP 2017-10-15 00:00:00 Completed [facility] TDAP 2017-10-15 00:00:00 Completed [facility] TDAP 2017-10-15 00:00:00 Completed [facility] TDAP 2017-10-15 00:00:00 Completed [facility] TDAP 2017-10-15 00:00:00 Completed [facility] TDAP 2017-10-15 00:00:00 Completed [facility] TDAP 2017-10-15 00:00:00 Completed [facility] TDAP 2017-10-15 00:00:00 Completed [facility] TDAP 2017-10-15 00:00:00 Completed [facility] TDAP 2017-10-15 00:00:00 [facility] [facility]:00:00 Completed [facility] TDAP 2017-10-15 00:00:00 Completed [facility] TDAP 2017-10-15 00:00:00 Completed [facility] TDAP 2017-10-15 00:00:00 Completed [facility] TDAP 2017-09-12 00:00:00 Completed [facility] TDAP 2017-09-12 00:00:00 Completed [facility] TDAP 2017-09-12 00:00:00 Completed [facility] TDAP 2017-09-12 00:00:00 Completed [facility] TDAP 2017-09-12 00:00:00 Completed [facility] TDAP 2017-09-12 00:00:00 Completed [facility] TDAP 2017-09-12 00:00:00 Completed [facility] TDAP 2017-09-12 00:00:00 Completed [facility] TDAP 2017-09-12 00:00:00 Completed [facility] TDAP 2017-09-12 00:00:00 Completed [facility] TDAP 2017-09-12 00:00:00 Completed [facility] TDAP 2017-09-12 00:00:00 Completed [facility] TDAP 2017-09-12 00:00:00 Completed [facility] TDAP 2017-09-12 00:00:00 Completed [facility] TDAP 2017-09-12 00:00:00 Completed [facility] TDAP 2017-09-12 00:00:00 Completed [facility] TDAP 2017-09-12 00:00:00 Completed [facility] TDAP 2017-09-12 00:00:00 Completed [facility] TDAP 2017-09-12 00:00:00 Completed [facility] TDAP 2017-09-12 00:00:00 Completed [facility] TDAP 2017-09-12 00:00:00 Completed [facility] TDAP 2017-09-12 00:00:00 Completed [facility] TDAP 2017-09-12 00:00:00 Completed [facility] TDAP 2017-09-12 00:00:00 Completed [facility] TDAP 2017-09-12 00:00:00 Completed [facility] TDAP 2017-09-12 00:00:00 Completed [facility] TDAP 2017-09-12 00:00:00 Completed [facility] TDAP 2017-09-12 00:00:00 Completed [facility] TDAP 2017-09-12 00:00:00 Completed [facility] TDAP 2017-09-12 00:00:00 Completed [facility] TDAP 2017-09-12 00:00:00 Completed [facility] TDAP 2017-09-12 00:00:00 Completed [facility] TDAP 2017-09-12 00:00:00 Completed [facility] TDAP 2017-09-12 00:00:00 Completed [facility] TDAP 2017-09-12 00:00:00 Completed [facility] TDAP 2017-09-12 00:00:00 Completed [facility] TDAP 2017-09-12 00:00:00 Completed [facility] TDAP 2017-09-12 00:00:00 Completed [facility] TDAP 2017-09-12 00:00:00 Completed [facility] TDAP 2017-09-12 00:00:00 Completed [facility] TDAP 2017-09-12 00:00:00 Completed [facility] TDAP 2017-09-12 00:00:00 Completed [facility] TDAP 2017-09-12 00:00:00 Completed [facility] TDAP 2017-09-12 00:00:00 Completed [facility] TDAP 2017-09-12 00:00:00 Completed [facility] TDAP 2017-09-12 00:00:00 Completed [facility] TDAP 2017-09-12 00:00:00 Completed [facility] TDAP 2017-09-12 00:00:00 Completed [facility] Influenza Virus Vaccine Quad IM Multi-dose 6+ MO 2017-09-12 00:00:00 Completed [facility] TDAP 2017-09-12 00:00:00 Completed [facility] Influenza Virus Vaccine Quad IM Multi-dose 6+ MO 2017-09-12 00:00:00 Completed [facility] TDAP 2017-09-12 00:00:00 Completed [facility] Influenza Virus Vaccine Quad IM Multi-dose 6+ MO 2017-09-12 00:00:00 Completed [facility] TDAP 2017-09-12 00:00:00 Completed [facility] Influenza Virus Vaccine Quad IM Multi-dose 6+ MO 2017-09-12 00:00:00 Completed [facility] TDAP 2017-09-12 00:00:00 Completed [facility] Influenza Virus Vaccine Quad IM Multi-dose 6+ MO 2017-09-12 00:00:00 Completed [facility] TDAP 2017-09-12 00:00:00 Completed [facility] Influenza Virus Vaccine Quad IM Multi-dose 6+ MO 2017-09-12 00:00:00 Completed [facility] TDAP 2017-09-12 00:00:00 Completed [facility] Influenza Virus Vaccine Quad IM Multi-dose 6+ MO 2017-09-12 00:00:00 Completed [facility] TDAP 2017-09-12 00:00:00 Completed [facility] Influenza Virus Vaccine Quad IM Multi-dose 6+ MO 2017-09-12 00:00:00 Completed [facility] TDAP 2017-09-12 00:00:00 Completed [facility] Influenza Virus Vaccine Quad IM Multi-dose 6+ MO 2017-09-12 00:00:00 Completed [facility] TDAP 2017-09-12 00:00:00 Completed [facility] Influenza Virus Vaccine Quad IM Multi-dose 6+ MO 2017-09-12 00:00:00 Completed [facility] TDAP 2017-09-12 00:00:00 Completed [facility] Influenza Virus Vaccine Quad IM Multi-dose 6+ MO 2017-09-12 00:00:00 Completed [facility] TDAP 2017-09-12 00:00:00 Completed [facility] Influenza Virus Vaccine Quad IM Multi-dose 6+ MO 2017-09-12 00:00:00 Completed [facility] TDAP 2017-09-12 00:00:00 Completed [facility] Influenza Virus Vaccine Quad IM Multi-dose 6+ MO 2017-09-12 00:00:00 Completed [facility] TDAP 2017-09-12 00:00:00 Completed [facility] Influenza Virus Vaccine Quad IM Multi-dose 6+ MO 2017-09-12 00:00:00 Completed [facility] TDAP 2017-09-12 00:00:00 Completed [facility] Influenza Virus Vaccine Quad IM Multi-dose 6+ MO 2017-09-12 00:00:00 Completed [facility] TDAP 2017-09-12 00:00:00 Completed [facility] Influenza Virus Vaccine Quad IM Multi-dose 6+ MO 2017-09-12 00:00:00 Completed [facility] TDAP 2017-09-12 00:00:00 Completed [facility] Influenza Virus Vaccine Quad IM Multi-dose 6+ MO 2017-09-12 00:00:00 Completed [facility] TDAP 2017-09-12 00:00:00 Completed [facility] Influenza Virus Vaccine Quad IM Multi-dose 6+ MO 2017-09-12 00:00:00 Completed [facility] TDAP 2017-09-12 00:00:00 Completed [facility] Influenza Virus Vaccine Quad IM Multi-dose 6+ MO 2017-09-12 00:00:00 Completed [facility] TDAP 2017-09-12 00:00:00 Completed [facility] Influenza Virus Vaccine Quad IM Multi-dose 6+ MO 2017-09-12 00:00:00 Completed [facility] TDAP 2017-09-12 00:00:00 Completed [facility] Influenza Virus Vaccine Quad IM Multi-dose 6+ MO 2017-09-12 00:00:00 Completed [facility] TDAP 2017-09-12 00:00:00 Completed [facility] Influenza Virus Vaccine Quad IM Multi-dose 6+ MO 2017-09-12 00:00:00 Completed [facility] TDAP 2017-09-12 00:00:00 Completed [facility] Influenza Virus Vaccine Quad IM Multi-dose 6+ MO 2017-09-12 00:00:00 Completed [facility] TDAP 2017-09-12 00:00:00 Completed [facility] Influenza Virus Vaccine Quad IM Multi-dose 6+ MO 2017-09-12 00:00:00 Completed [facility] TDAP 2017-09-12 00:00:00 Completed [facility] Influenza Virus Vaccine Quad IM Multi-dose 6+ MO 2017-09-12 00:00:00 Completed [facility] TDAP 2017-09-12 00:00:00 Completed [facility] Influenza Virus Vaccine Quad IM Multi-dose 6+ MO 2017-09-12 00:00:00 Completed [facility] TDAP 2017-09-12 00:00:00 Completed [facility] Influenza Virus Vaccine Quad IM Multi-dose 6+ MO 2017-09-12 00:00:00 Completed [facility] TDAP 2017-09-12 00:00:00 Completed [facility] Influenza Virus Vaccine Quad IM Multi-dose 6+ MO 2017-09-12 00:00:00 Completed [facility] TDAP 2017-09-12 00:00:00 Completed [facility] Influenza Virus Vaccine Quad IM Multi-dose 6+ MO 2017-09-12 00:00:00 Completed [facility] TDAP 2017-09-12 00:00:00 Completed [facility] Influenza Virus Vaccine Quad IM Multi-dose 6+ MO 2017-09-12 00:00:00 Completed [facility] TDAP 2017-09-12 00:00:00 Completed [facility] Influenza Virus Vaccine Quad IM Multi-dose 6+ MO 2017-09-12 00:00:00 Completed [facility] TDAP 2017-09-12 00:00:00 Completed [facility] Influenza Virus Vaccine Quad IM Multi-dose 6+ MO 2017-09-12 00:00:00 Completed [facility] TDAP 2017-09-12 00:00:00 Completed [facility] Influenza Virus Vaccine Quad IM Multi-dose 6+ MO 2017-09-12 00:00:00 Completed [facility] TDAP 2017-09-12 00:00:00 Completed [facility] Influenza Virus Vaccine Quad IM Multi-dose 6+ MO 2017-09-12 00:00:00 Completed [facility] TDAP 2017-09-12 00:00:00 Completed [facility] Influenza Virus Vaccine Quad IM Multi-dose 6+ MO 2017-09-12 00:00:00 Completed [facility] TDAP 2017-09-12 00:00:00 Completed [facility] Influenza Virus Vaccine Quad IM Multi-dose 6+ MO 2017-09-12 00:00:00 Completed [facility] TDAP 2017-09-12 00:00:00 Completed [facility] Influenza Virus Vaccine Quad IM Multi-dose 6+ MO 2017-09-12 00:00:00 Completed [facility] TDAP 2017-09-12 00:00:00 Completed [facility] Influenza Virus Vaccine Quad IM Multi-dose 6+ MO 2017-09-12 00:00:00 Completed [facility] TDAP 2017-09-12 00:00:00 Completed [facility] Influenza Virus Vaccine Quad IM Multi-dose 6+ MO 2017-09-12 00:00:00 Completed [facility] TDAP 2017-09-12 00:00:00 Completed [facility] Influenza Virus Vaccine Quad IM Multi-dose 6+ MO 2017-09-12 00:00:00 Completed [facility] TDAP 2017-09-12 00:00:00 Completed [facility] Influenza Virus Vaccine Quad IM Multi-dose 6+ MO 2017-09-12 00:00:00 Completed [facility] TDAP 2017-09-12 00:00:00 Completed [facility] Influenza Virus Vaccine Quad IM Multi-dose 6+ MO 2017-09-12 00:00:00 Completed [facility] TDAP 2017-09-12 00:00:00 Completed [facility] Influenza Virus Vaccine Quad IM Multi-dose 6+ MO 2017-09-12 00:00:00 Completed [facility] TDAP 2017-09-12 00:00:00 Completed [facility] Influenza Virus Vaccine Quad IM Multi-dose 6+ MO 2017-09-12 00:00:00 Completed [facility] TDAP 2017-09-12 00:00:00 Completed [facility] Influenza Virus Vaccine Quad IM Multi-dose 6+ MO 2017-09-12 00:00:00 Completed [facility] TDAP 2017-09-12 00:00:00 Completed [facility] Influenza Virus Vaccine Quad IM Multi-dose 6+ MO 2017-09-12 00:00:00 Completed [facility] TDAP 2017-09-12 00:00:00 Completed [facility] Influenza Virus Vaccine Quad IM Multi-dose 6+ MO 2017-09-12 00:00:00 Completed [facility] TDAP 2017-09-12 00:00:00 Completed [facility] Influenza Virus Vaccine Quad IM Multi-dose 6+ MO 2017-09-12 00:00:00 Completed [facility] TDAP 2017-09-12 00:00:00 Completed [facility] Influenza Virus Vaccine Quad IM Multi-dose 6+ MO 2017-09-12 00:00:00 Completed [facility] TDAP 2017-09-12 00:00:00 Completed [facility] Influenza Virus Vaccine Quad IM Multi-dose 6+ MO 2017-09-12 00:00:00 Completed [facility] TDAP 2017-09-12 00:00:00 Completed [facility] Influenza Virus Vaccine Quad IM Multi-dose 6+ MO 2017-09-12 00:00:00 Completed [facility] TDAP 2017-09-12 00:00:00 Completed [facility] Influenza Virus Vaccine Quad IM Multi-dose 6+ MO 2017-09-12 00:00:00 Completed [facility] TDAP 2017-09-12 00:00:00 Completed [facility] Influenza Virus Vaccine Quad IM Multi-dose 6+ MO 2017-09-12 00:00:00 Completed [facility] TDAP 2017-09-12 00:00:00 Completed [facility] Influenza Virus Vaccine Quad IM Multi-dose 6+ MO 2017-09-12 00:00:00 Completed [facility] TDAP 2017-09-12 00:00:00 Completed [facility] Influenza Virus Vaccine Quad IM Multi-dose 6+ MO 2017-09-12 00:00:00 Completed [facility] TDAP 2017-09-12 00:00:00 Completed [facility] Influenza Virus Vaccine Quad IM Multi-dose 6+ MO 2017-09-12 00:00:00 Completed [facility] TDAP 2017-09-12 00:00:00 Completed [facility] Influenza Virus Vaccine Quad IM Multi-dose 6+ MO 2017-09-12 00:00:00 Completed [facility] TDAP 2017-09-12 00:00:00 Completed [facility] Influenza Virus Vaccine Quad IM Multi-dose 6+ MO 2017-09-12 00:00:00 Completed [facility] TDAP 2017-09-12 00:00:00 Completed [facility] Influenza Virus Vaccine Quad IM Multi-dose 6+ MO 2017-09-12 00:00:00 Completed [facility] TDAP 2017-09-12 00:00:00 Completed [facility] Influenza Virus Vaccine Quad IM Multi-dose 6+ MO 2017-09-12 00:00:00 Completed [facility] Fluarix (IIV4) - SDS - 0.5mL Fluarix (IIV4) - SDS - 0.5mL Unknown Completed [facility] Fluarix (IIV4) - SDS - 0.5mL Fluarix (IIV4) - SDS - 0.5mL Unknown Completed [facility] Fluarix (IIV4) - SDS - 0.5mL Fluarix (IIV4) - SDS - 0.5mL Unknown Completed [facility] Fluarix (IIV4) - SDS - 0.5mL Fluarix (IIV4) - SDS - 0.5mL Unknown Completed [facility] Fluarix (IIV4) - SDS - 0.5mL Fluarix (IIV4) - SDS - 0.5mL Unknown Completed [facility] Fluarix (IIV4) - SDS - 0.5mL Fluarix (IIV4) - SDS - 0.5mL Unknown Completed [facility] Fluarix (IIV4) - SDS - 0.5mL Fluarix (IIV4) - SDS - 0.5mL Unknown Completed [facility] Fluarix (IIV4) - SDS - 0.5mL Fluarix (IIV4) - SDS - 0.5mL Unknown Completed [facility] Fluarix (IIV4) - SDS - 0.5mL Fluarix (IIV4) - SDS - 0.5mL Unknown Completed [facility] Fluarix (IIV4) - SDS - 0.5mL Fluarix (IIV4) - SDS - 0.5mL Unknown Completed [facility] Fluarix (IIV4) - SDS - 0.5mL Fluarix (IIV4) - SDS - 0.5mL Unknown Completed [facility] Fluarix (IIV4) - SDS - 0.5mL Fluarix (IIV4) - SDS - 0.5mL Unknown Completed [facility] Fluarix (IIV4) - SDS - 0.5mL Fluarix (IIV4) - SDS - 0.5mL Unknown Completed [facility] Influenza Virus Vaccine Quad .5 mL IM 6+ MO (FLUZONE/FLULAVAL/F LUARIX) Unknown Completed [facility] SARS-COV-2 COVID-19 MODERNA 12+ YRS VACCINE Unknown Completed [facility] SARS-COV-2 COVID-19 MODERNA 12+ YRS VACCINE Unknown Completed [facility] Influenza Virus Vaccine Quad IM, Preserv and ABX Free 6 MO-64 YRS (FLUCELVAX) Unknown Completed [facility] TDAP Unknown Completed [facility] TDAP Unknown Completed [facility] Influenza Virus Vaccine Quad IM, Preserv and ABX Free 6 MO-64 YRS (FLUCELVAX) Unknown Completed [facility] Influenza Virus Vaccine Quad IM Multi-dose 6+ MO Unknown Completed [facility] Influenza Virus Vaccine Quad .5 mL IM 6+ MO (FLUZONE/FLULAVAL/F LUARIX) Unknown Completed [facility] SARS-COV-2 COVID-19 MODERNA 12+ YRS VACCINE Unknown Completed [facility] SARS-COV-2 COVID-19 MODERNA 12+ YRS VACCINE Unknown Completed [facility] Influenza Virus Vaccine Quad IM, Preserv and ABX Free 6 MO-64 YRS (FLUCELVAX) Unknown Completed [facility] TDAP Unknown Completed [facility] TDAP Unknown Completed [facility] Influenza Virus Vaccine Quad IM, Preserv and ABX Free 6 MO-64 YRS (FLUCELVAX) Unknown Completed [facility] Influenza Virus Vaccine Quad IM Multi-dose 6+ MO Unknown Completed [facility] Influenza Virus Vaccine Quad .5 mL IM 6+ MO (FLUZONE/FLULAVAL/F LUARIX) Unknown Completed [facility] SARS-COV-2 COVID-19 MODERNA 12+ YRS VACCINE Unknown Completed [facility] SARS-COV-2 COVID-19 MODERNA 12+ YRS VACCINE Unknown Completed [facility] Influenza Virus Vaccine Quad IM, Preserv and ABX Free 6 MO-64 YRS (FLUCELVAX) Unknown Completed [facility] TDAP Unknown Completed [facility] TDAP Unknown Completed [facility] Influenza Virus Vaccine Quad IM, Preserv and ABX Free 6 MO-64 YRS (FLUCELVAX) Unknown Completed [facility] Influenza Virus Vaccine Quad IM Multi-dose 6+ MO Unknown Completed [facility] Influenza Virus Vaccine Quad .5 mL IM 6+ MO (FLUZONE/FLULAVAL/F LUARIX) Unknown Completed [facility] SARS-COV-2 COVID-19 MODERNA 12+ YRS VACCINE Unknown Completed [facility] SARS-COV-2 COVID-19 MODERNA 12+ YRS VACCINE Unknown Completed [facility] Influenza Virus Vaccine Quad IM, Preserv and ABX Free 6 MO-64 YRS (FLUCELVAX) Unknown Completed [facility] TDAP Unknown Completed [facility] TDAP Unknown Completed [facility] Influenza Virus Vaccine Quad IM, Preserv and ABX Free 6 MO-64 YRS (FLUCELVAX) Unknown Completed [facility] Influenza Virus Vaccine Quad IM Multi-dose 6+ MO Unknown Completed [facility] Influenza Virus Vaccine Quad .5 mL IM 6+ MO (FLUZONE/FLULAVAL/F LUARIX) Unknown Completed [facility] SARS-COV-2 COVID-19 MODERNA 12+ YRS VACCINE Unknown Completed [facility] SARS-COV-2 COVID-19 MODERNA 12+ YRS VACCINE Unknown Completed [facility] Influenza Virus Vaccine Quad IM, Preserv and ABX Free 6 MO-64 YRS (FLUCELVAX) Unknown Completed [facility] TDAP Unknown Completed [facility] TDAP Unknown Completed [facility] Influenza Virus Vaccine Quad IM, Preserv and ABX Free 6 MO-64 YRS (FLUCELVAX) Unknown Completed [facility] Influenza Virus Vaccine Quad IM Multi-dose 6+ MO Unknown Completed [facility] Influenza Virus Vaccine Quad .5 mL IM 6+ MO (FLUZONE/FLULAVAL/F LUARIX) Unknown Completed [facility] SARS-COV-2 COVID-19 MODERNA 12+ YRS VACCINE Unknown Completed [facility] SARS-COV-2 COVID-19 MODERNA 12+ YRS VACCINE Unknown Completed [facility] Influenza Virus Vaccine Quad IM, Preserv and ABX Free 6 MO-64 YRS (FLUCELVAX) Unknown Completed [facility] TDAP Unknown Completed [facility] TDAP Unknown Completed [facility] Influenza Virus Vaccine Quad IM, Preserv and ABX Free 6 MO-64 YRS (FLUCELVAX) Unknown Completed [facility] Influenza Virus Vaccine Quad IM Multi-dose 6+ MO Unknown Completed [facility] Influenza Virus Vaccine Quad .5 mL IM 6+ MO (FLUZONE/FLULAVAL/F LUARIX) Unknown Completed [facility] SARS-COV-2 COVID-19 MODERNA 12+ YRS VACCINE Unknown Completed [facility] SARS-COV-2 COVID-19 MODERNA 12+ YRS VACCINE Unknown Completed [facility] Influenza Virus Vaccine Quad IM, Preserv and ABX Free 6 MO-64 YRS (FLUCELVAX) Unknown Completed [facility] TDAP Unknown Completed [facility] TDAP Unknown Completed [facility] Influenza Virus Vaccine Quad IM, Preserv and ABX Free 6 MO-64 YRS (FLUCELVAX) Unknown Completed [facility] Influenza Virus Vaccine Quad IM Multi-dose 6+ MO Unknown Completed [facility] Influenza Virus Vaccine Quad .5 mL IM 6+ MO (FLUZONE/FLULAVAL/F LUARIX) Unknown Completed [facility] SARS-COV-2 COVID-19 MODERNA 12+ YRS VACCINE Unknown Completed [facility] SARS-COV-2 COVID-19 MODERNA 12+ YRS VACCINE Unknown Completed [facility] Influenza Virus Vaccine Quad IM, Preserv and ABX Free 6 MO-64 YRS (FLUCELVAX) Unknown Completed [facility] TDAP Unknown Completed [facility] TDAP Unknown Completed [facility] Influenza Virus Vaccine Quad IM, Preserv and ABX Free 6 MO-64 YRS (FLUCELVAX) Unknown Completed [facility] Influenza Virus Vaccine Quad IM Multi-dose 6+ MO Unknown Completed [facility] Influenza Virus Vaccine Quad .5 mL IM 6+ MO (FLUZONE/FLULAVAL/F LUARIX) Unknown Completed [facility] SARS-COV-2 COVID-19 MODERNA 12+ YRS VACCINE Unknown Completed [facility] SARS-COV-2 COVID-19 MODERNA 12+ YRS VACCINE Unknown Completed [facility] Influenza Virus Vaccine Quad IM, Preserv and ABX Free 6 MO-64 YRS (FLUCELVAX) Unknown Completed [facility] TDAP Unknown Completed [facility] TDAP Unknown Completed [facility] Influenza Virus Vaccine Quad IM, Preserv and ABX Free 6 MO-64 YRS (FLUCELVAX) Unknown Completed [facility] Influenza Virus Vaccine Quad IM Multi-dose 6+ MO Unknown Completed [facility] Influenza Virus Vaccine Quad .5 mL IM 6+ MO (FLUZONE/FLULAVAL/F LUARIX) Unknown Completed [facility] SARS-COV-2 COVID-19 MODERNA 12+ YRS VACCINE Unknown Completed [facility] SARS-COV-2 COVID-19 MODERNA 12+ YRS VACCINE Unknown Completed [facility] Influenza Virus Vaccine Quad IM, Preserv and ABX Free 6 MO-64 YRS (FLUCELVAX) Unknown Completed [facility] TDAP Unknown Completed [facility] TDAP Unknown Completed [facility] Influenza Virus Vaccine Quad IM, Preserv and ABX Free 6 MO-64 YRS (FLUCELVAX) Unknown Completed [facility] Influenza Virus Vaccine Quad IM Multi-dose 6+ MO Unknown Completed [facility] Influenza Virus Vaccine Quad .5 mL IM 6+ MO (FLUZONE/FLULAVAL/F LUARIX) Unknown Completed [facility] SARS-COV-2 COVID-19 MODERNA 12+ YRS VACCINE Unknown Completed [facility] SARS-COV-2 COVID-19 MODERNA 12+ YRS VACCINE Unknown Completed [facility] Influenza Virus Vaccine Quad IM, Preserv and ABX Free 6 MO-64 YRS (FLUCELVAX) Unknown Completed [facility] TDAP Unknown Completed [facility] TDAP Unknown Completed [facility] Influenza Virus Vaccine Quad IM, Preserv and ABX Free 6 MO-64 YRS (FLUCELVAX) Unknown Completed [facility] Influenza Virus Vaccine Quad IM Multi-dose 6+ MO Unknown Completed [facility] Influenza Virus Vaccine Quad .5 mL IM 6+ MO (FLUZONE/FLULAVAL/F LUARIX) Unknown Completed [facility] SARS-COV-2 COVID-19 MODERNA 12+ YRS VACCINE Unknown Completed [facility] SARS-COV-2 COVID-19 MODERNA 12+ YRS VACCINE Unknown Completed [facility] Influenza Virus Vaccine Quad IM, Preserv and ABX Free 6 MO-64 YRS (FLUCELVAX) Unknown Completed [facility] TDAP Unknown Completed [facility] TDAP Unknown Completed [facility] Influenza Virus Vaccine Quad IM, Preserv and ABX Free 6 MO-64 YRS (FLUCELVAX) Unknown Completed [facility] Influenza Virus Vaccine Quad IM Multi-dose 6+ MO Unknown Completed [facility] Influenza Virus Vaccine Quad .5 mL IM 6+ MO (FLUZONE/FLULAVAL/F LUARIX) Unknown Completed [facility] SARS-COV-2 COVID-19 MODERNA 12+ YRS VACCINE Unknown Completed [facility] SARS-COV-2 COVID-19 MODERNA 12+ YRS VACCINE Unknown Completed [facility] Influenza Virus Vaccine Quad IM, Preserv and ABX Free 6 MO-64 YRS (FLUCELVAX) Unknown Completed [facility] TDAP Unknown Completed [facility] TDAP Unknown Completed [facility] Influenza Virus Vaccine Quad IM Multi-dose 6+ MO Unknown Completed [facility] Influenza Virus Vaccine Quad .5 mL IM 6+ MO (FLUZONE/FLULAVAL/F LUARIX) Unknown Completed [facility] SARS-COV-2 COVID-19 MODERNA 12+ YRS VACCINE Unknown Completed [facility] SARS-COV-2 COVID-19 MODERNA 12+ YRS VACCINE Unknown Completed [facility] Influenza Virus Vaccine Quad IM, Preserv and ABX Free 6 MO-64 YRS (FLUCELVAX) Unknown Completed [facility] TDAP Unknown Completed [facility] TDAP Unknown Completed [facility] Influenza Virus Vaccine Quad IM Multi-dose 6+ MO Unknown Completed [facility] Influenza Virus Vaccine Quad .5 mL IM 6+ MO (FLUZONE/FLULAVAL/F LUARIX) Unknown Completed [facility] SARS-COV-2 COVID-19 MODERNA 12+ YRS VACCINE Unknown Completed [facility] SARS-COV-2 COVID-19 MODERNA 12+ YRS VACCINE Unknown Completed [facility] Influenza Virus Vaccine Quad IM, Preserv and ABX Free 6 MO-64 YRS (FLUCELVAX) Unknown Completed [facility] TDAP Unknown Completed [facility] TDAP Unknown Completed [facility] Influenza Virus Vaccine Quad IM Multi-dose 6+ MO Unknown Completed [facility] Influenza Virus Vaccine Quad .5 mL IM 6+ MO (FLUZONE/FLULAVAL/F LUARIX) Unknown Completed [facility] SARS-COV-2 COVID-19 MODERNA 12+ YRS VACCINE Unknown Completed [facility] SARS-COV-2 COVID-19 MODERNA 12+ YRS VACCINE Unknown Completed [facility] Influenza Virus Vaccine Quad IM, Preserv and ABX Free 6 MO-64 YRS (FLUCELVAX) Unknown Completed [facility] TDAP Unknown Completed [facility] TDAP Unknown Completed [facility] Influenza Virus Vaccine Quad IM Multi-dose 6+ MO Unknown Completed [facility] Influenza Virus Vaccine Quad .5 mL IM 6+ MO (FLUZONE/FLULAVAL/F LUARIX) Unknown Completed [facility] SARS-COV-2 COVID-19 MODERNA 12+ YRS VACCINE Unknown Completed [facility] SARS-COV-2 COVID-19 MODERNA 12+ YRS VACCINE Unknown Completed [facility] Influenza Virus Vaccine Quad IM, Preserv and ABX Free 6 MO-64 YRS (FLUCELVAX) Unknown Completed [facility] TDAP Unknown Completed [facility] TDAP Unknown Completed [facility] Influenza Virus Vaccine Quad IM Multi-dose 6+ MO Unknown Completed [facility] Influenza Virus Vaccine Quad .5 mL IM 6+ MO (FLUZONE/FLULAVAL/F LUARIX) Unknown Completed [facility] SARS-COV-2 COVID-19 MODERNA 12+ YRS VACCINE Unknown Completed [facility] SARS-COV-2 COVID-19 MODERNA 12+ YRS VACCINE Unknown Completed [facility] TDAP Unknown Completed [facility] TDAP Unknown Completed [facility] Influenza Virus Vaccine Quad IM Multi-dose 6+ MO Unknown Completed [facility] Influenza Virus Vaccine Quad .5 mL IM 6+ MO (FLUZONE/FLULAVAL/F LUARIX) Unknown Completed [facility] SARS-COV-2 COVID-19 MODERNA 12+ YRS VACCINE Unknown Completed [facility] SARS-COV-2 COVID-19 MODERNA 12+ YRS VACCINE Unknown Completed [facility] TDAP Unknown Completed [facility] TDAP Unknown Completed [facility] Influenza Virus Vaccine Quad IM Multi-dose 6+ MO Unknown Completed [facility] Influenza Virus Vaccine Quad .5 mL IM 6+ MO (FLUZONE/FLULAVAL/F LUARIX) Unknown Completed [facility] TDAP Unknown Completed [facility] TDAP Unknown Completed [facility] Influenza Virus Vaccine Quad IM Multi-dose 6+ MO Unknown Completed [facility] Vital Signs Vital Name Observation Time Observation Value Comments S aruna height 2024-02-18 10:00:00 63 [in_i] Commo n [facility] weight 2024-02-18 10:00:00 233.4 [lb_av] Co [facility] temperature 2024-02-18 10:00:00 97.5 [degF] Com [facility] bmi 2024-02-18 10:00:00 41.34 kg/m2 Comm on [facility] oximetry 2024-02-18 10:00:00 99 % Commo n [facility] respiratory rate 2024-02-18 10:00:00 16 /min [facility] blood pressure systolic 2024-02-18 10:00:00 127 mm[Hg] [facility] blood pressure diastolic 2024-02-18 10:00:00 83 mm[Hg] [facility] height 2024-01-18 08:40:00 63 [in_i] Commo n [facility] weight 2024-01-18 08:40:00 238.0 [lb_av] Co [facility] temperature 2024-01-18 08:40:00 97.3 [degF] Com [facility] bmi 2024-01-18 08:40:00 42.16 kg/m2 Comm on [facility] oximetry 2024-01-18 08:40:00 99 % Commo n [facility] respiratory rate 2024-01-18 08:40:00 16 /min [facility] blood pressure systolic 2024-01-18 08:40:00 122 mm[Hg] Common [facility] blood pressure diastolic 2024-01-18 08:40:00 76 mm[Hg] [facility] height 2023-12-18 11:00:00 63 [in_i] Commo n [facility] weight 2023-12-18 11:00:00 235.0 [lb_av] Co mmon [facility] temperature 2023-12-18 11:00:00 97.3 [degF] Com mon [facility] bmi 2023-12-18 11:00:00 41.62 kg/m2 Comm on [facility] oximetry 2023-12-18 11:00:00 99 % Commo n [facility] respiratory rate 2023-12-18 11:00:00 16 /min Common [facility] blood pressure systolic 2023-12-18 11:00:00 126 mm[Hg] Common [facility] blood pressure diastolic 2023-12-18 11:00:00 82 mm[Hg] [facility] Systolic blood pressure 2023-06-06 18:51:00 105 mm[Hg] [facility] Diastolic blood pressure 2023-06-06 18:51:00 67 mm[Hg] [facility] Heart rate 2023-06-06 18:51:00 71 /min [facility] Body temperature 2023-06-06 18:51:00 37.06 Ana [facility] Body height 2023-06-06 18:51:00 162.6 cm [facility] Body weight 2023-06-06 18:51:00 108.138 kg [facility] BMI 2023-06-06 18:51:00 40.92 kg/m2 [facility] Systolic blood pressure 2023-05-30 20:09:00 114 mm[Hg] [facility] Diastolic blood pressure 2023-05-30 20:09:00 72 mm[Hg] [facility] Heart rate 2023-05-30 20:09:00 81 /min [facility] Body temperature 2023-05-30 20:09:00 36.78 Ana [facility] Respiratory rate 2023-05-30 20:09:00 18 /min [facility] Body height 2023-05-30 20:09:00 162.6 cm [facility] 2023-05-30 20:09:00 108.319 kg Univ [facility] BMI 2023-05-30 20:09:00 40.99 kg/m2 Univ [facility] Systolic blood pressure 2023-05-24 18:38:00 110 mm[Hg] [facility] Diastolic blood pressure 2023-05-24 18:38:00 74 mm[Hg] [facility] Heart rate 2023-05-24 18:38:00 65 /min [facility] Body temperature 2023-05-24 18:38:00 36.78 Ana [facility] Respiratory rate 2023-05-24 18:38:00 18 /min [facility] Body height 2023-05-24 18:38:00 162.6 cm [facility] Body weight 2023-05-24 18:38:00 107.956 kg [facility] BMI 2023-05-24 18:38:00 40.85 kg/m2 [facility] Systolic blood pressure 2023-05-15 20:10:00 110 mm[Hg] [facility] Diastolic blood pressure 2023-05-15 20:10:00 66 mm[Hg] [facility] Heart rate 2023-05-15 20:10:00 69 /min [facility] Body temperature 2023-05-15 20:10:00 36.83 Ana [facility] Body height 2023-05-15 20:10:00 162.6 cm [facility] Body weight 2023-05-15 20:10:00 108.773 kg [facility] BMI 2023-05-15 20:10:00 41.16 kg/m2 [facility] Systolic blood pressure 2023-05-15 19:04:00 101 mm[Hg] [facility] Diastolic blood pressure 2023-05-15 19:04:00 69 mm[Hg] [facility] Heart rate 2023-05-15 19:04:00 81 /min [facility] Body temperature 2023-05-15 19:04:00 37.11 Ana [facility] Respiratory rate 2023-05-15 19:04:00 16 /min [facility] Body height 2023-05-15 19:04:00 162.6 cm [facility] Body weight 2023-05-15 19:04:00 108.41 kg [facility] BMI 2023-05-15 19:04:00 41.02 kg/m2 [facility] Oxygen saturation in Arterial blood by Pulse oximetry 2023-05-15 19:04:00 97 /min [facility] Systolic blood pressure 2023-05-10 19:37:00 114 mm[Hg] [facility] Diastolic blood pressure 2023-05-10 19:37:00 75 mm[Hg] [facility] Heart rate 2023-05-10 19:37:00 83 /min [facility] Body temperature 2023-05-10 19:37:00 37.11 Ana [facility] Respiratory rate 2023-05-10 19:37:00 18 /min [facility] Body height 2023-05-10 19:37:00 162.6 cm [facility] Body weight 2023-05-10 19:37:00 114.306 kg [facility] BMI 2023-05-10 19:37:00 43.26 kg/m2 [facility] Systolic blood pressure 2023-05-07 13:02:00 105 mm[Hg] [facility] Diastolic blood pressure 2023-05-07 13:02:00 60 mm[Hg] [facility] Heart rate 2023-05-07 13:02:00 97 /min [facility] Body temperature 2023-05-07 13:02:00 36.22 Ana [facility] Respiratory rate 2023-05-07 13:02:00 18 /min [facility] Oxygen saturation in Arterial blood by Pulse oximetry 2023-05-07 13:02:00 100 /min [facility] Body height 2023-05-04 19:23:00 162.6 cm [facility] Body weight 2023-05-04 19:23:00 117.482 kg [facility] BMI 2023-05-04 19:23:00 44.46 kg/m2 [facility] Systolic blood pressure 2023-05-05 04:45:00 133 mm[Hg] [facility] Diastolic blood pressure 2023-05-05 04:45:00 68 mm[Hg] [facility] Heart rate 2023-05-05 04:45:00 87 /min [facility] Oxygen saturation in Arterial blood by Pulse oximetry 2023-05-05 04:45:00 100 /min [facility] Respiratory rate 2023-05-05 04:01:00 16 /min [facility] Body temperature 2023-05-05 03:45:00 36.94 Ana [facility] Body height 2023-05-04 19:23:00 162.6 cm [facility] Body weight 2023-05-04 19:23:00 117.482 kg [facility] BMI 2023-05-04 19:23:00 44.46 kg/m2 [facility] Systolic blood pressure 2023-05-04 16:46:00 105 mm[Hg] [facility] Diastolic blood pressure 2023-05-04 16:46:00 71 mm[Hg] [facility] Heart rate 2023-05-04 16:46:00 90 /min [facility] Body temperature 2023-05-04 16:46:00 36.67 Ana [facility] Respiratory rate 2023-05-04 16:46:00 18 /min [facility] Body height 2023-05-04 16:46:00 162.6 cm [facility] Body weight 2023-05-04 16:46:00 117.482 kg [facility] BMI 2023-05-04 16:46:00 44.46 kg/m2 [facility] Systolic blood pressure 2023-05-01 20:26:00 114 mm[Hg] [facility] Diastolic blood pressure 2023-05-01 20:26:00 67 mm[Hg] [facility] Heart rate 2023-05-01 20:26:00 87 /min [facility] Body temperature 2023-05-01 20:26:00 36.72 Ana [facility] Respiratory rate 2023-05-01 20:26:00 18 /min [facility] Body height 2023-05-01 20:26:00 162.6 cm [facility] Body weight 2023-05-01 20:26:00 118.389 kg [facility] BMI 2023-05-01 20:26:00 44.80 kg/m2 [facility] Systolic blood pressure 2023-04-27 15:45:00 104 mm[Hg] [facility] Diastolic blood pressure 2023-04-27 15:45:00 62 mm[Hg] [facility] Heart rate 2023-04-27 15:45:00 91 /min [facility] Body temperature 2023-04-27 15:45:00 36.78 Ana [facility] Body height 2023-04-27 15:45:00 162.6 cm [facility] Body weight 2023-04-27 15:45:00 117.209 kg [facility] BMI 2023-04-27 15:45:00 44.35 kg/m2 [facility] Systolic blood pressure 2023-04-24 15:35:00 107 mm[Hg] [facility] Diastolic blood pressure 2023-04-24 15:35:00 70 mm[Hg] [facility] Heart rate 2023-04-24 15:35:00 87 /min [facility] Body temperature 2023-04-24 15:35:00 36.67 Ana [facility] Respiratory rate 2023-04-24 15:35:00 18 /min [facility] Body height 2023-04-24 15:35:00 162.6 cm [facility] Body weight 2023-04-24 15:35:00 118.026 kg [facility] BMI 2023-04-24 15:35:00 44.66 kg/m2 [facility] Systolic blood pressure 2023-04-19 18:44:00 135 mm[Hg] [facility] Diastolic blood pressure 2023-04-19 18:44:00 73 mm[Hg] [facility] Heart rate 2023-04-19 18:44:00 98 /min [facility] Body temperature 2023-04-19 18:44:00 36.67 Ana [facility] Respiratory rate 2023-04-19 18:44:00 18 /min [facility] Body weight 2023-04-19 18:44:00 118.298 kg [facility] BMI 2023-04-19 18:44:00 44.77 kg/m2 [facility] Systolic blood pressure 2023-04-16 13:31:00 104 mm[Hg] [facility] Diastolic blood pressure 2023-04-16 13:31:00 64 mm[Hg] [facility] Heart rate 2023-04-16 13:31:00 91 /min [facility] Body temperature 2023-04-16 13:31:00 36.72 Ana [facility] Body height 2023-04-16 13:31:00 162.6 cm [facility] Body weight 2023-04-16 13:31:00 116.212 kg [facility] BMI 2023-04-16 13:31:00 43.98 kg/m2 [facility] Systolic blood pressure 2023-04-12 15:24:00 119 mm[Hg] [facility] Diastolic blood pressure 2023-04-12 15:24:00 67 mm[Hg] [facility] Heart rate 2023-04-12 15:24:00 82 /min [facility] Body temperature 2023-04-12 15:24:00 36.72 Ana [facility] Respiratory rate 2023-04-12 15:24:00 18 /min [facility] Body height 2023-04-12 15:24:00 162.6 cm [facility] Body weight 2023-04-12 15:24:00 116.212 kg [facility] BMI 2023-04-12 15:24:00 43.98 kg/m2 [facility] Systolic blood pressure 2023-04-09 16:01:00 108 mm[Hg] [facility] Diastolic blood pressure 2023-04-09 16:01:00 71 mm[Hg] [facility] Heart rate 2023-04-09 16:01:00 109 /min [facility] Body temperature 2023-04-09 16:01:00 36.83 Ana [facility] Respiratory rate 2023-04-09 16:01:00 18 /min [facility] Body height 2023-04-09 16:01:00 162.6 cm [facility] Body weight 2023-04-09 16:01:00 116.121 kg [facility] BMI 2023-04-09 16:01:00 43.94 kg/m2 [facility] Systolic blood pressure 2023-04-05 17:56:00 114 mm[Hg] [facility] Diastolic blood pressure 2023-04-05 17:56:00 67 mm[Hg] [facility] Heart rate 2023-04-05 17:56:00 90 /min [facility] Body weight 2023-04-05 17:56:00 116.121 kg [facility] BMI 2023-04-05 17:56:00 43.92 kg/m2 [facility] Heart rate 2023-04-05 01:30:00 92 /min [facility] Oxygen saturation in Arterial blood by Pulse oximetry 2023-04-05 01:30:00 99 /min [facility] Body temperature 2023-04-05 00:30:00 36.67 Ana [facility] Respiratory rate 2023-04-05 00:30:00 16 /min [facility] Systolic blood pressure 2023-04-05 00:02:00 127 mm[Hg] [facility] Diastolic blood pressure 2023-04-05 00:02:00 61 mm[Hg] [facility] Body height 2023-04-04 22:01:00 162.6 cm [facility] Body weight 2023-04-04 22:01:00 116.756 kg 257.4lb [facility] BMI 2023-04-04 22:01:00 44.16 kg/m2 [facility] Systolic blood pressure 2023-04-02 13:23:00 110 mm[Hg] [facility] Diastolic blood pressure 2023-04-02 13:23:00 72 mm[Hg] [facility] Heart rate 2023-04-02 13:23:00 92 /min [facility] Body temperature 2023-04-02 13:23:00 36.72 Ana [facility] Respiratory rate 2023-04-02 13:23:00 18 /min [facility] Body height 2023-04-02 13:23:00 162.6 cm [facility] Body weight 2023-04-02 13:23:00 116.574 kg [facility] BMI 2023-04-02 13:23:00 44.11 kg/m2 [facility] Systolic blood pressure 2023-03-29 18:05:00 104 mm[Hg] [facility] Diastolic blood pressure 2023-03-29 18:05:00 71 mm[Hg] [facility] Heart rate 2023-03-29 18:05:00 76 /min [facility] Body temperature 2023-03-29 18:05:00 36.78 Ana [facility] Respiratory rate 2023-03-29 18:05:00 16 /min [facility] Body weight 2023-03-29 18:05:00 115.214 kg [facility] BMI 2023-03-29 18:05:00 43.60 kg/m2 [facility] Oxygen saturation in Arterial blood by Pulse oximetry 2023-03-29 18:05:00 98 /min [facility] Systolic blood pressure 2023-03-29 16:10:00 120 mm[Hg] [facility] Diastolic blood pressure 2023-03-29 16:10:00 76 mm[Hg] [facility] Heart rate 2023-03-29 16:10:00 102 /min [facility] Body temperature 2023-03-29 16:10:00 36.78 Ana [facility] Respiratory rate 2023-03-29 16:10:00 18 /min [facility] Body height 2023-03-29 16:10:00 162.6 cm [facility] Body weight 2023-03-29 16:10:00 115.758 kg [facility] BMI 2023-03-29 16:10:00 43.80 kg/m2 [facility] Systolic blood pressure 2023-03-13 18:17:00 109 mm[Hg] [facility] Diastolic blood pressure 2023-03-13 18:17:00 70 mm[Hg] [facility] Heart rate 2023-03-13 18:17:00 85 /min [facility] Body temperature 2023-03-13 18:17:00 36.72 Ana [facility] Respiratory rate 2023-03-13 18:17:00 18 /min [facility] Body height 2023-03-13 18:17:00 162.6 cm [facility] Body weight 2023-03-13 18:17:00 114.76 kg [facility] BMI 2023-03-13 18:17:00 43.43 kg/m2 [facility] Systolic blood pressure 2023-03-06 19:49:00 121 mm[Hg] [facility] Diastolic blood pressure 2023-03-06 19:49:00 71 mm[Hg] [facility] Heart rate 2023-03-06 19:49:00 91 /min [facility] Body temperature 2023-03-06 19:49:00 36.78 Ana [facility] Respiratory rate 2023-03-06 19:49:00 16 /min [facility] Body height 2023-03-06 19:49:00 162.6 cm [facility] Body weight 2023-03-06 19:49:00 115.214 kg [facility] BMI 2023-03-06 19:49:00 43.60 kg/m2 [facility] Systolic blood pressure 2023-02-27 15:28:00 118 mm[Hg] [facility] Diastolic blood pressure 2023-02-27 15:28:00 80 mm[Hg] [facility] Heart rate 2023-02-27 15:28:00 97 /min [facility] Body temperature 2023-02-27 15:28:00 36.72 Ana [facility] Respiratory rate 2023-02-27 15:28:00 16 /min [facility] Body height 2023-02-27 15:28:00 162.6 cm [facility] Body weight 2023-02-27 15:28:00 114.76 kg [facility] BMI 2023-02-27 15:28:00 43.43 kg/m2 [facility] Systolic blood pressure 2023-02-20 19:31:00 109 mm[Hg] [facility] Diastolic blood pressure 2023-02-20 19:31:00 65 mm[Hg] [facility] Heart rate 2023-02-20 19:31:00 79 /min [facility] Body temperature 2023-02-20 19:31:00 36.67 Ana [facility] Respiratory rate 2023-02-20 19:31:00 18 /min [facility] Body height 2023-02-20 19:31:00 162.6 cm [facility] Body weight 2023-02-20 19:31:00 113.762 kg [facility] BMI 2023-02-20 19:31:00 43.05 kg/m2 [facility] Systolic blood pressure 2023-02-13 18:12:00 93 mm[Hg] [facility] Diastolic blood pressure 2023-02-13 18:12:00 57 mm[Hg] [facility] Heart rate 2023-02-13 18:12:00 103 /min [facility] Body temperature 2023-02-13 18:12:00 36.72 Ana [facility] Body height 2023-02-13 18:12:00 162.6 cm [facility] Body weight 2023-02-13 18:12:00 113.218 kg [facility] BMI 2023-02-13 18:12:00 42.84 kg/m2 [facility] Systolic blood pressure 2023-02-06 15:10:00 107 mm[Hg] [facility] Diastolic blood pressure 2023-02-06 15:10:00 64 mm[Hg] [facility] Heart rate 2023-02-06 15:10:00 88 /min [facility] Body temperature 2023-02-06 15:10:00 36.78 Ana [facility] Respiratory rate 2023-02-06 15:10:00 16 /min [facility] Body height 2023-02-06 15:10:00 162.6 cm [facility] Body weight 2023-02-06 15:10:00 112.946 kg [facility] BMI 2023-02-06 15:10:00 42.74 kg/m2 [facility] Heart rate 2023-01-30 19:30:00 84 /min [facility] Oxygen saturation in Arterial blood by Pulse oximetry 2023-01-30 19:30:00 98 /min [facility] Systolic blood pressure 2023-01-30 18:25:00 112 mm[Hg] [facility] Diastolic blood pressure 2023-01-30 18:25:00 60 mm[Hg] [facility] Body temperature 2023-01-30 18:25:00 36.33 Ana [facility] Respiratory rate 2023-01-30 18:25:00 18 /min [facility] Body weight 2023-01-30 18:10:00 112.492 kg [facility] BMI 2023-01-30 18:10:00 42.57 kg/m2 [facility] Systolic blood pressure 2023-01-30 16:20:00 115 mm[Hg] [facility] Diastolic blood pressure 2023-01-30 16:20:00 76 mm[Hg] [facility] Heart rate 2023-01-30 16:20:00 91 /min [facility] Body temperature 2023-01-30 16:20:00 36.78 Ana [facility] Respiratory rate 2023-01-30 16:20:00 18 /min [facility] Body height 2023-01-30 16:20:00 162.6 cm [facility] Body weight 2023-01-30 16:20:00 112.946 kg [facility] [facility] BMI 2023-01-30 16:20:00 42.74 kg/m2 [facility] Systolic blood pressure 2023-01-23 19:42:00 112 mm[Hg] [facility] Diastolic blood pressure 2023-01-23 19:42:00 69 mm[Hg] [facility] Heart rate 2023-01-23 19:42:00 83 /min [facility] Body temperature 2023-01-23 19:42:00 36.72 Ana [facility] Respiratory rate 2023-01-23 19:42:00 19 /min [facility] Body height 2023-01-23 19:42:00 162.6 cm [facility] Body weight 2023-01-23 19:42:00 112.492 kg [facility] BMI 2023-01-23 19:42:00 42.57 kg/m2 [facility] Systolic blood pressure 2023-01-16 16:19:00 102 mm[Hg] [facility] Diastolic blood pressure 2023-01-16 16:19:00 66 mm[Hg] [facility] Heart rate 2023-01-16 16:19:00 83 /min [facility] Body temperature 2023-01-16 16:19:00 36.89 Ana [facility] Respiratory rate 2023-01-16 16:19:00 16 /min [facility] Body height 2023-01-16 16:19:00 162.6 cm [facility] Body weight 2023-01-16 16:19:00 111.585 kg [facility] BMI 2023-01-16 16:19:00 42.23 kg/m2 [facility] Systolic blood pressure 2023-01-09 14:40:00 113 mm[Hg] [facility] Diastolic blood pressure 2023-01-09 14:40:00 74 mm[Hg] [facility] Heart rate 2023-01-09 14:40:00 97 /min [facility] Body temperature 2023-01-09 14:40:00 36.89 Ana [facility] Respiratory rate 2023-01-09 14:40:00 18 /min [facility] Body height 2023-01-09 14:40:00 162.6 cm [facility] Body weight 2023-01-09 14:40:00 111.517 kg [facility] BMI 2023-01-09 14:40:00 42.20 kg/m2 [facility] Systolic blood pressure 2023-01-02 15:04:00 120 mm[Hg] [facility] Diastolic blood pressure 2023-01-02 15:04:00 70 mm[Hg] [facility] Heart rate 2023-01-02 15:04:00 91 /min [facility] Body temperature 2023-01-02 15:04:00 36.67 Ana [facility] Respiratory rate 2023-01-02 15:04:00 18 /min [facility] Body height 2023-01-02 15:04:00 162.6 cm [facility] Body weight 2023-01-02 15:04:00 110.133 kg [facility] BMI 2023-01-02 15:04:00 41.68 kg/m2 [facility] Systolic blood pressure 2022-12-29 04:15:00 139 mm[Hg] [facility] Diastolic blood pressure 2022-12-29 04:15:00 64 mm[Hg] [facility] Heart rate 2022-12-29 04:15:00 73 /min [facility] Body temperature 2022-12-29 04:15:00 36.67 Ana [facility] Respiratory rate 2022-12-29 04:15:00 16 /min [facility] Oxygen saturation in Arterial blood by Pulse oximetry 2022-12-29 04:15:00 100 /min [facility] Body height 2022-12-29 02:03:00 162.6 cm [facility] Body weight 2022-12-29 02:03:00 111.63 kg [facility] BMI 2022-12-29 02:03:00 42.22 kg/m2 [facility] Systolic blood pressure 2022-12-26 15:19:00 109 mm[Hg] [facility] Diastolic blood pressure 2022-12-26 15:19:00 69 mm[Hg] [facility] Heart rate 2022-12-26 15:19:00 89 /min [facility] Body temperature 2022-12-26 15:19:00 37 Ana [facility] Respiratory rate 2022-12-26 15:19:00 19 /min [facility] Body height 2022-12-26 15:19:00 162.6 cm [facility] Body weight 2022-12-26 15:19:00 109.952 kg [facility] BMI 2022-12-26 15:19:00 41.61 kg/m2 [facility] Body weight 2022-12-20 16:11:00 108.863 kg [facility] BMI 2022-12-20 16:11:00 41.20 kg/m2 [facility] Systolic blood pressure 2022-12-13 17:34:00 128 mm[Hg] [facility] Diastolic blood pressure 2022-12-13 17:34:00 73 mm[Hg] [facility] Heart rate 2022-12-13 17:34:00 73 /min [facility] Body temperature 2022-12-13 17:34:00 36.78 Ana [facility] Body height 2022-12-13 17:34:00 162.6 cm [facility] Body weight 2022-12-13 17:34:00 109.589 kg [facility] BMI 2022-12-13 17:34:00 41.47 kg/m2 [facility] Systolic blood pressure 2022-11-15 21:43:00 124 mm[Hg] [facility] Diastolic blood pressure 2022-11-15 21:43:00 84 mm[Hg] [facility] Heart rate 2022-11-15 21:43:00 89 /min [facility] Body temperature 2022-11-15 21:43:00 36.94 Ana [facility] Respiratory rate 2022-11-15 21:43:00 19 /min [facility] Body height 2022-11-15 21:43:00 162.6 cm [facility] Body weight 2022-11-15 21:43:00 107.956 kg [facility] BMI 2022-11-15 21:43:00 40.85 kg/m2 [facility] Systolic blood pressure 2022-10-24 15:32:00 94 mm[Hg] [facility] Diastolic blood pressure 2022-10-24 15:32:00 61 mm[Hg] [facility] Heart rate 2022-10-24 15:32:00 74 /min [facility] Body temperature 2022-10-24 15:32:00 36.89 Ana [facility] Body height 2022-10-24 15:32:00 162.6 cm [facility] Body weight 2022-10-24 15:32:00 108.727 kg [facility] BMI 2022-10-24 15:32:00 41.14 kg/m2 [facility] Oxygen saturation in Arterial blood by Pulse oximetry 2022-10-24 15:32:00 99 /min [facility] Systolic blood pressure 2022-10-18 20:52:00 108 mm[Hg] [facility] Diastolic blood pressure 2022-10-18 20:52:00 70 mm[Hg] [facility] Heart rate 2022-10-18 20:52:00 82 /[facility] 2022-10-18 20:52:00 36.61 Ana [facility] Body height 2022-10-18 20:52:00 162.6 cm [facility] weight 2022-10-18 20:52:00 106.777 kg [facility] BMI 2022-10-18 20:52:00 40.41 kg/m2 [facility] Systolic blood pressure 2022-10-11 20:04:00 110 mm[Hg] [facility] Diastolic blood pressure 2022-10-11 20:04:00 70 mm[Hg] [facility] Heart rate 2022-10-11 20:04:00 85 /min [facility] Body temperature 2022-10-11 20:04:00 36.56 Ana [facility] Body height 2022-10-11 20:04:00 162.6 cm [facility] Body weight 2022-10-11 20:04:00 108.591 kg [facility] BMI 2022-10-11 20:04:00 41.09 kg/m2 [facility] Systolic blood pressure 2022-10-03 19:16:00 118 mm[Hg] [facility] Diastolic blood pressure 2022-10-03 19:16:00 64 mm[Hg] [facility] Heart rate 2022-10-03 19:16:00 87 /min [facility] Body temperature 2022-10-03 19:16:00 37.33 Ana [facility] Respiratory rate 2022-10-03 19:16:00 16 /min [facility] Body height 2022-10-03 19:16:00 162.6 cm [facility] Body weight 2022-10-03 19:16:00 108.138 kg [facility] BMI 2022-10-03 19:16:00 40.92 kg/m2 [facility] Respiratory rate 2022-09-22 13:34:00 18 /min [facility] Body height 2022-09-22 13:34:00 162.6 cm [facility] Body weight 2022-09-22 13:34:00 107.049 kg [facility] BMI 2022-09-22 13:34:00 40.51 kg/m2 [facility] Systolic blood pressure 2022-03-20 15:58:00 112 mm[Hg] [facility] Diastolic blood pressure 2022-03-20 15:58:00 74 mm[Hg] [facility] Heart rate 2022-03-20 15:58:00 80 /min [facility] Body temperature 2022-03-20 15:58:00 36.78 Ana [facility] Respiratory rate 2022-03-20 15:58:00 16 /min [facility] Body height 2022-03-20 15:58:00 162.6 cm [facility] Body weight 2022-03-20 15:58:00 105.416 kg [facility] BMI 2022-03-20 15:58:00 39.89 kg/m2 [facility] Oxygen saturation in Arterial blood by Pulse oximetry 2022-03-20 15:58:00 99 /min [facility] Systolic blood pressure 2023-05-07 13:02:00 105 mm[Hg] [facility] Diastolic blood pressure 2023-05-07 13:02:00 60 mm[Hg] [facility] Heart rate 2023-05-07 13:02:00 97 /min [facility] Body temperature 2023-05-07 13:02:00 36.22 Ana [facility] Respiratory rate 2023-05-07 13:02:00 18 /min [facility] Oxygen saturation in Arterial blood by Pulse oximetry 2023-05-07 13:02:00 100 /min [facility] Body height 2023-05-04 19:23:00 162.6 cm [facility] Body weight 2023-05-04 19:23:00 117.482 [facility] BMI 2023-05-04 19:23:00 44.46 kg/m2 [facility] Initial DRG Weight: 2021-05-02 00:18:32 0.6411 Working DRG Weight: 2021-05-02 00:18:32 0.6411 Have you Lost Weight Without Trying in the Past 6 Months? 2021-05-02 00:18:32 No Attempted 2021-05-02 00:18:32 N Body Mass Index 2021-05-02 00:18:32 41.5 Height 2021-05-02 00:18:32 162.56\S\64 Pulse Rate 2021-05-02 00:18:32 82 /min Pulse Rate 2021-05-02 00:18:32 82 /min Respiratory Rate 2021-05-02 00:18:32 18 /min Respiratory Rate 2021-05-02 00:18:32 18 /min Respiratory Depth 2021-05-02 00:18:32 Normal /min Respiratory Effort 2021-05-02 00:18:32 Spontaneous /min Respiratory Pattern 2021-05-02 00:18:32 Normal /min Temperature 2021-05-02 00:18:32 36.8\S\98.2 Weight 2021-05-02 00:18:32 947244.353\S\3872 Weight Measurement Method 2021-05-02 00:18:32 Standing Scale Initial DRG Weight: 2021-04-29 15:52:40 0.6411 Working DRG Weight: 2021-04-29 15:52:40 0.6411 Have you Lost Weight Without Trying in the Past 6 Months? 2021-04-29 15:52:40 No Attempted 2021-04-29 15:52:40 N Body Mass Index 2021-04-29 15:52:40 41.5 Height 2021-04-29 15:52:40 162.56\S\64 Pulse Rate 2021-04-29 15:52:40 82 /min Pulse Rate 2021-04-29 15:52:40 82 /min Respiratory Rate 2021-04-29 15:52:40 18 /min Respiratory Rate 2021-04-29 15:52:40 18 /min Respiratory Depth 2021-04-29 15:52:40 Normal /min Respiratory Effort 2021-04-29 15:52:40 Spontaneous /min Respiratory Pattern 2021-04-29 15:52:40 Normal /min Temperature 2021-04-29 15:52:40 36.8\S\98.2 Weight 2021-04-29 15:52:40 038134.353\S\3872 Weight Measurement Method 2021-04-29 15:52:40 Standing Scale Have you Lost Weight Without Trying in the Past 6 Months? 2021-04-28 10:14:19 No Attempted 2021-04-28 10:14:19 N Body Mass Index 2021-04-28 10:14:19 41.5 Height 2021-04-28 10:14:19 162.56\S\64 Pulse Rate 2021-04-28 10:14:19 82 /min Pulse Rate 2021-04-28 10:14:19 82 /min Respiratory Rate 2021-04-28 10:14:19 18 /min Respiratory Rate 2021-04-28 10:14:19 18 /min Respiratory Depth 2021-04-28 10:14:19 Normal /min Respiratory Effort 2021-04-28 10:14:19 Spontaneous /min Respiratory Pattern 2021-04-28 10:14:19 Normal /min Temperature 2021-04-28 10:14:19 36.8\S\98.2 Weight 2021-04-28 10:14:19 711895.353\S\3872 Weight Measurement Method 2021-04-28 10:14:19 Standing Scale Initial DRG Weight: 2021-04-28 10:14:19 0.6411 Working DRG Weight: 2021-04-28 10:14:19 0.6411 Initial DRG Weight: 2021-04-28 06:32:43 0.6411 Working DRG Weight: 2021-04-28 06:32:43 0.6411 Have you Lost Weight Without Trying in the Past 6 Months? 2021-04-28 06:32:43 No Attempted 2021-04-28 06:32:43 N Body Mass Index 2021-04-28 06:32:43 41.5 Height 2021-04-28 06:32:43 162.56\S\64 Respiratory Rate 2021-04-28 06:32:43 18 /min Respiratory Depth 2021-04-28 06:32:43 Normal /min Respiratory Effort 2021-04-28 06:32:43 Spontaneous /min Respiratory Pattern 2021-04-28 06:32:43 Normal /min Weight 2021-04-28 06:32:43 435786.353\S\3872 Weight Measurement Method 2021-04-28 06:32:43 Standing Scale Have you Lost Weight Without Trying in the Past 6 Months? 2021-04-28 00:20:54 No Attempted 2021-04-28 00:20:54 N Body Mass Index 2021-04-28 00:20:54 41.5 Height 2021-04-28 00:20:54 162.56\S\64 Respiratory Rate 2021-04-28 00:20:54 18 /min Respiratory Depth 2021-04-28 00:20:54 Normal /min Respiratory Effort 2021-04-28 00:20:54 Spontaneous /min Respiratory Pattern 2021-04-28 00:20:54 Normal /min Weight 2021-04-28 00:20:54 376172.353\S\3872 Weight Measurement Method 2021-04-28 00:20:54 Standing Scale Initial DRG Weight: 2021-04-28 00:20:53 0.6411 Working DRG Weight: 2021-04-28 00:20:53 0.6411 Have you Lost Weight Without Trying in the Past 6 Months? 2021-04-28 00:19:52 No Attempted 2021-04-28 00:19:52 N Body Mass Index 2021-04-28 00:19:52 41.5 Height 2021-04-28 00:19:52 162.56\S\64 Respiratory Rate 2021-04-28 00:19:52 18 /min Respiratory Depth 2021-04-28 00:19:52 Normal /min Respiratory Effort 2021-04-28 00:19:52 Spontaneous /min Respiratory Pattern 2021-04-28 00:19:52 Normal /min Weight 2021-04-28 00:19:52 657167.353\S\3872 Weight Measurement Method 2021-04-28 00:19:52 Standing Scale Have you Lost Weight Without Trying in the Past 6 Months? 2021-04-27 21:08:37 No Attempted 2021-04-27 21:08:37 N Body Mass Index 2021-04-27 21:08:37 41.5 Height 2021-04-27 21:08:37 162.56\S\64 Respiratory Rate 2021-04-27 21:08:37 18 /min Respiratory Effort 2021-04-27 21:08:37 Spontaneous /min Respiratory Pattern 2021-04-27 21:08:37 Normal /min Weight 2021-04-27 21:08:37 097772.353\S\3872 Weight Measurement Method 2021-04-27 21:08:37 Standing Scale Have you Lost Weight Without Trying in the Past 6 Months? 2021-04-27 18:46:24 No Body Mass Index 2021-04-27 18:46:24 41.5 Height 2021-04-27 18:46:24 162.56\S\64 Respiratory Rate 2021-04-27 18:46:24 18 /min Respiratory Effort 2021-04-27 18:46:24 Spontaneous /min Respiratory Pattern 2021-04-27 18:46:24 Normal /min Weight 2021-04-27 18:46:24 956730.353\S\3872 Weight Measurement Method 2021-04-27 18:46:24 Standing Scale Have you Lost Weight Without Trying in the Past 6 Months? 2021-04-27 08:56:53 No Body Mass Index 2021-04-27 08:56:53 41.5 Height 2021-04-27 08:56:53 162.56\S\64 Respiratory Effort 2021-04-27 08:56:53 Spontaneous /min Respiratory Pattern 2021-04-27 08:56:53 Normal /min Weight 2021-04-27 08:56:53 532398.353\S\3872 Weight Measurement Method 2021-04-27 08:56:53 Standing Scale Have you Lost Weight Without Trying in the Past 6 Months? 2021-04-27 08:54:20 No Respiratory Effort 2021-04-27 08:54:20 Spontaneous /min Respiratory Pattern 2021-04-27 08:54:20 Normal /min WEIGHT 2021-04-27 08:40:00 109.748634 kg HEIGHT 2021-04-27 08:40:00 162.56 cm Procedures Procedure Date / Time Performed Performing Clinician Source CBC WITH DIFF 2023-05-05 08:26:00 Flavio [facility] CBC WITH DIFF 2023-05-05 08:26:00 Jared-Christian [facility] CBC WITH DIFF 2023-05-05 08:26:00 Flavio [facility] CENTRAL NEURAXIAL BLOCK 2023-05-05 02:10:00 Sally White [facility] SECTION 2023-05-05 01:54:00 Jared-Adelaida s, [facility] TUBAL LIGATION 2023-05-05 01:54:00 Jared-Christian [facility] SECTION 2023-05-05 01:54:00 Jared-Adelaida s, [facility] TUBAL LIGATION 2023-05-05 01:54:00 Flavio [facility] SECTION 2023-05-05 01:54:00 Jared-Adelaida s, [facility] TUBAL LIGATION 2023-05-05 01:54:00 Jared-Christian [facility] CBC WITH DIFF 2023-05-04 20:24:00 Adum, Jaleesa Lozano [facility] HEPATITIS B SURFACE ANTIGEN 2023-05-04 20:24:00 Adum, Jaleesa Baker [facility] HB ABO GROUPING 2023-05-04 20:24:00 Adum, Jaleesa Tobar [facility] RHO (D) IMMUNE GLOBULIN 2023-05-04 20:24:00 Annamaria Gomez [facility] ADC OR MATEUS ONLY - RPR 2023-05-04 20:24:00 Adum, Uzma Baker [facility] HIV 1/2 AG-AB WITH REFLEX 2023-05-04 20:24:00 Adum, Uzma Baker [facility] HEPATITIS B SURFACE ANTIGEN 2023-05-04 20:24:00 Adum, Jaleesa Baker [facility] ADC OR MATEUS ONLY - RPR 2023-05-04 20:24:00 Adum, Uzma Baker [facility] HB ABO GROUPING 2023-05-04 20:24:00 Adum, Jaleesa Baker Ekaterina [facility] CBC WITH DIFF 2023-05-04 20:24:00 Adum, Jaleesa Baker aMrta [facility] HIV 1/2 AG-AB WITH REFLEX 2023-05-04 20:24:00 Adum, Uzma argelia Bkaer [facility] RHO (D) IMMUNE GLOBULIN 2023-05-04 20:24:00 Annamaria Gomez Caprice [facility] CBC WITH DIFF 2023-05-04 20:24:00 Adum, Jaleesa Lozano [facility] HEPATITIS B SURFACE ANTIGEN 2023-05-04 20:24:00 Adum, Jaleesa Samuel [facility] HB ABO GROUPING 2023-05-04 20:24:00 Adum, Jaleesa Baker Ekaterina [facility] RHO (D) IMMUNE GLOBULIN 2023-05-04 20:24:00 Annamaria Gomez [facility] ADC OR MATEUS MENESES - RPR 2023-05-04 20:24:00 Adum, Uzma Baker [facility] HIV 1/2 AG-AB WITH REFLEX 2023-05-04 20:24:00 Adum, Uzma Baker [facility] NOTICE OF PRIVACY PRACTICES 2023-05-04 18:57:07 Doctor Unassigned, Barre [facility] NOTICE OF PRIVACY PRACTICES 2023-05-04 18:57:07 Doctor Unassigned, Barre [facility] NOTICE OF PRIVACY PRACTICES 2023-05-04 18:57:07 Doctor Unassigned, Barre [facility] CONSENT/REFUSAL FOR DIAGNOSIS AND TREATMENT 2023-05-04 18:56:50 Doctor Unassigned, Barre [facility] CONSENT/REFUSAL FOR DIAGNOSIS AND TREATMENT 2023-05-04 18:56:50 Doctor Unassigned, Barre [facility] CONSENT/REFUSAL FOR DIAGNOSIS AND TREATMENT 2023-05-04 18:56:50 Doctor Unassigned, Barre [facility] ASSIGNMENT OF BENEFITS 2023-05-04 18:56:32 Docto r Unassigned, Barre [facility] NON-STRESS TEST 2023-05-04 17:53:27 Adum, Jaleesa Samuel [facility] NON-STRESS TEST 2023-05-04 17:53:27 Adum, Jaleesa Samuel [facility] POCT URINALYSIS W/O SPECIFIC GRAVITY 2023-05-04 00:00:00 Adum, Jaleesa Samuel [facility] POCT URINALYSIS W/O SPECIFIC GRAVITY 2023-05-04 00:00:00 Adum, Jaleesa Samuel [facility] NON-STRESS TEST 2023-05-01 23:36:32 Adum, Jaleesa Samuel [facility] NON-STRESS TEST 2023-05-01 23:36:32 Adum, Jaleesa Samuel [facility] NON-STRESS TEST 2023-04-27 17:12:47 Adum, Jaleesa Samuel [facility] NON-STRESS TEST 2023-04-27 17:12:47 Adum, Jaleesa Samuel [facility] URINE CULTURE 2023-04-27 15:47:00 Adum, Jaleesa Samuel [facility] DSU PRE-OP 2023-04-27 05:01:00 Doctor Unass igned, Barre [facility] DSU PRE-OP 2023-04-27 05:01:00 Doctor Unass igned, Barre [facility] POCT URINALYSIS W/O SPECIFIC GRAVITY 2023-04-27 00:00:00 Adum, Jaleesa Samuel [facility] POCT URINALYSIS W/O SPECIFIC GRAVITY 2023-04-27 00:00:00 Adum, Jaelesa Samuel [facility] NON-STRESS TEST 2023-04-24 16:49:25 Adum, Jaleesa Samuel [facility] NON-STRESS TEST 2023-04-24 16:49:25 Adum, Jaleesa Samuel [facility] NON-STRESS TEST 2023-04-19 22:53:29 Adum, Jaleesa Samuel [facility] NON-STRESS TEST 2023-04-19 22:53:29 Adum, Jaleesa Samuel [facility] NON-STRESS TEST 2023-04-16 14:11:32 Caprice Vanegas [facility] NON-STRESS TEST 2023-04-16 14:11:32 Jared Avina [facility] NON-STRESS TEST 2023-04-13 03:39:59 Dony Sadelr [facility] NON-STRESS TEST 2023-04-13 03:39:59 Dony Sadler [facility] POCT URINALYSIS W/O SPECIFIC GRAVITY 2023-04-12 16:08:00 Dony Sadler [facility] POCT URINALYSIS W/O SPECIFIC GRAVITY 2023-04-12 16:08:00 Dony Sadler [facility] DME/SUPPLY JUSTIFICATION 2023-04-12 05:01:00 Doc tor Unassigned, Barre [facility] DME/SUPPLY JUSTIFICATION 2023-04-12 05:01:00 Doc tor Unassigned, Barre [facility] SECOND AND THIRD TRIMESTER ULTRASOUND 2023-04-10 13:53:00 Dony Sadler [facility] NON-STRESS TEST 2023-04-09 16:27:23 Dony Sadler [facility] NON-STRESS TEST 2023-04-09 16:27:23 Dony Sadler [facility] NON-STRESS TEST 2023-04-05 19:15:20 Dony Sadler [facility] NON-STRESS TEST 2023-04-05 17:55:15 Dony Sadler [facility] NON-STRESS TEST 2023-04-05 17:55:15 Dony Sadler [facility] GROUP B STREPTOCOCCUS BY PCR 2023-04-04 23:14:00 Dony Sadler [facility] CBC WITH DIFF 2023-04-04 23:11[facility] 2023-04-04 23:11:00 Dony Sadler [facility] HB ABO GROUPING 2023-04-04 23:11:00 Dony Sadler [facility] ADC CLC OR LCC ONLY - WET PREP 2023-04-04 23:11:00 Dony Sadler [facility] ADC CLC OR LCC ONLY - WET PREP 2023-04-04 23:11:00 Dony Sadler [facility] URINALYSIS 2023-04-04 23:11:00 Dony Sadler [facility] URINE CULTURE 2023-04-04 23:11:00 Dony Sadler [facility] GC & CHLAMYDIA AMPLIFIED ASSAY 2023-04-04 23:11:00 Dony Sadler [facility] CBC WITH DIFF 2023-04-04 23:11:00 Dony Sadler [facility] HB ABO GROUPING 2023-04-04 23:11:00 Dony Sadler [facility] CONSENT/REFUSAL FOR DIAGNOSIS AND TREATMENT 2023-04-04 21:38:58 Doctor Unassigned, Barre [facility] CONSENT/REFUSAL FOR DIAGNOSIS AND TREATMENT 2023-04-04 21:38:58 Doctor Unassigned, Barre [facility] ASSIGNMENT OF BENEFITS 2023-04-04 21:38:40 Docto r Unassigned, Barre [facility] ASSIGNMENT OF BENEFITS 2023-04-04 21:38:40 Docto r Unassigned, Barre [facility] NON-STRESS TEST 2023-04-02 14:07:10 Dony Sadler [facility] NON-STRESS TEST 2023-04-02 14:07:10 Dony Sadler [facility] POCT SARS-COV-2 ANTIGEN (BINAX NOW) 2023-03-29 18:04:00 Jennifer [facility] POCT SARS-COV-2 ANTIGEN (BINAX NOW) 2023-03-29 18:04:00 Jennifer [facility] POCT MOLECULAR STREP 2023-03-29 18:03[facility] 2023-03-29 18:03[facility]00 [facility] W/O SPECIFIC GRAVITY 2023-03-29 16:11:00 Dony Sadler [facility] POCT URINALYSIS W/O SPECIFIC GRAVITY 2023-03-29 16:11:00 Dony Sadler [facility] SECOND AND THIRD TRIMESTER ULTRASOUND 2023-03-21 15:36:00 Dony Sadler [facility] SECOND AND THIRD TRIMESTER ULTRASOUND 2023-03-21 15:36:00 Dony Sadler [facility] STERILIZATION CONSENT FORM 2023-03-13 05:01:00 Doctor Unassigned, [place]re [facility] STERILIZATION CONSENT FORM 2023-03-13 05:01:00 Doctor Unassigned, Barre [facility] POCT URINALYSIS W/O SPECIFIC GRAVITY 2023-03-13 00:00:00 Dony Sadler [facility] POCT URINALYSIS W/O SPECIFIC GRAVITY 2023-03-13 00:00:00 Dony Sadler [facility] HB ABO GROUPING 2023-02-14 16:04:00 Dony Sadler [facility] CBC WITH DIFF 2023-02-14 16:04:00 Dony Sadler [facility] GLUCOSE 1 HOUR POST PRANDIAL 2023-02-14 16:04:00 [facility] [facility] HIV 1/2 AG-AB WITH REFLEX 2023-02-14 16:04:00 Uma Sadler [facility] ADC OR MATEUS ONLY - RPR 2023-02-14 16:04:00 Uma Sadler [facility] VITAMIN D, 25-OH 2023-02-14 16:04:00 Dony Sadler [facility] POCT URINALYSIS W/O SPECIFIC GRAVITY 2023-02-13 00:00:00 Dony Sadler [facility] POCT URINALYSIS W/O SPECIFIC GRAVITY 2023-02-13 00:00:00 Dony Sadler [facility] CONSENT/REFUSAL FOR DIAGNOSIS AND TREATMENT 2023-01-30 18:06:49 Doctor Unassigned, Barre [facility] ASSIGNMENT OF BENEFITS 2023-01-30 18:06:20 Docto r Unassigned, Barre [facility] URINALYSIS 2022-12-29 02:48:00 Dony Sadler [facility] ADC CLC OR LCC ONLY - WET PREP 2022-12-29 02:48:00 Dony Sadler [facility] CONSENT/REFUSAL FOR DIAGNOSIS AND TREATMENT 2022-12-29 01:52:22 Doctor Unassigned, Barre [facility] AUTHORIZATION FOR RELEASE OF PHI 2022-12-28 06:01:00 Doctor Unassigned, Barre [facility] L&D VISIT (NON-DELIVERED) 2022-12-28 06:01:00 Do ctor Unassigned, Barre [facility] POCT URINALYSIS W/O SPECIFIC GRAVITY 2022-12-13 00:00:00 Dony Sadler [facility] MEDICATION CORRESPONDENCE 2022-12-08 06:01:00 Do ctor Unassigned, Barre [facility] CBC WITH DIFF 2022-11-15 21:34:00 Dony Sadler [facility] HEPATITIS B SURFACE ANTIGEN 2022-11-15 21:34:00 Dony Sadler [facility] HCV ANTIBODY 2022-11-15 21:34:00 Dony Sadler [facility] ADC OR MATEUS ONLY - RPR 2022-11-15 21:34:00 Uma Sadler [facility] HIV 1/2 AG-AB WITH REFLEX 2022-11-15 21:34:00 Uma Sadler [facility] HB ABO GROUPING 2022-11-15 21:32:00 Dony Sadler [facility] POCT URINALYSIS W/O SPECIFIC GRAVITY 2022-11-15 00:00:00 Kevin Aguirre [facility] POCT MOLECULAR FLU 2022-10-24 15:52:00 Isabella Sky [facility] EXTERNAL PROVIDER RECORDS 2022-10-24 06:01:00 Do ctor Unassigned, Barre [facility] FLU VACC (), 6 MO-64 YRS, .5ML, IM, QUAD (FLUCELVAX) 2022-10-18 21:21:05 Dony Sadler [facility] POCT URINALYSIS W/O SPECIFIC GRAVITY 2022-10-18 00:00:00 Dony Sadler [facility] FIRST TRIMESTER LESS THAN 14 WEEKS WITH TRANSVAGINAL 2022-10-17 00:00:00 Dony Sadler [facility] ASSIGNMENT OF BENEFITS 2022-10-16 22:52:10 Docto r Unassigned, Barre [facility] POCT TEST 2022-09-22 00:00:00 Dony Sadler [facility] Encounters Start Date/Time End Date/Time Encounter Type Admission Type Attending [facility] Care Department Encounter ID Source 2024-02-14 08:04:00 Outpatient [facility] [id number] [facility] 2024-01-16 08:26:01 Outpatient Deepak [facility] [id number] [facility] 2023-12-18 10:19:01 Outpatient Deepak Fisher [facility] [id number] [facility] 2023-04-04 22:24:49 Outpatient P [facility] [id number] [facility] 2023-01-30 13:47:36 Outpatient X [facility] [id number] [facility] 2024-02-29 09:15:00 2024-02-29 09:15:00 Outpatient R AKINSIJOSE ROJO [facility] [id number] [facility] 2024-02-21 00:00:00 2024-02-21 00:00:00 (WEB) STLMLC STLMLC [id number] [facility] 2024-02-21 00:00:00 2024-02-21 00:00:00 (WEB) STLMLC STLMLC [id number] [facility] 2024-02-21 00:00:00 2024-02-21 00:00:00 (WEB) STLMLC STLMLC [id number] [facility] 2024-02-20 00:00:00 2024-02-20 00:00:00 (WEB) STLMLC STLMLC [id number] [facility] 2024-02-18 00:00:00 2024-02-18 00:00:00 OFFICE VISIT ESTAB PT LEVEL 4 STLMLC STLMLC [id number] [facility] 2024-02-18 00:00:00 2024-02-18 00:00:00 (TEL) STLMLC STLMLC [id number] [facility] 2024-01-29 00:00:00 2024-01-29 00:00:00 (WEB) STLMLC STLMLC [id number] [facility] 2024-01-23 00:00:00 2024-01-23 00:00:00 (WEB) STLMLC STLMLC [id number] [facility] 2024-01-21 00:00:00 2024-01-21 00:00:00 (WEB) STLMLC STLMLC [id number] [facility] 2024-01-21 00:00:00 2024-01-21 00:00:00 (TEL) STLMLC STLMLC [id number] [facility] 2024-01-21 00:00:00 2024-01-21 00:00:00 OFFICE VISIT ESTAB PT LEVEL 3 STLMLC STLMLC [id number] [facility] 2024-01-18 00:00:00 2024-01-18 00:00:00 OFFICE VISIT ESTAB PT LEVEL 4 STLMLC STLMLC [id number] [facility] 2024-01-18 00:00:00 2024-01-18 00:00:00 (WEB) STLMLC STLMLC [id number] [facility] 2023-12-26 00:00:00 2023-12-26 00:00:00 (WEB) STLMLC STLMLC [id number] [facility] 2023-12-18 00:00:00 2023-12-18 00:00:00 OFFICE VISIT NEW PT LEVEL 3 STLMLC STLMLC [id number] [facility] 2023-10-29 10:30:00 2023-10-29 10:30:00 Outpatient R DONY SADLER [facility] [id number] [facility] 2023-07-16 16:25:01 2023-07-16 16:25:01 Outpatient SFA SFA [id number] Kai Caal 2023-06-06 13:30:00 2023-06-06 14:19:36 Outpatient R DONY SADLER [facility] [id number] [facility] 2023-06-06 13:30:00 2023-06-06 14:19:36 Routine Visit Dony [facility] BUILDING 1.2.840.114 350.1.13.10 4.2.7.2.686 [id number] [facility] 2023-06-01 15:00:00 2023-06-01 15:00:00 Outpatient R DONY SADLER [facility] [id number] [facility] 2023-06-01 00:00:00 2023-06-01 00:00:00 Patient Secure Msg Doctor Unassigned, Barre [facility] BUILDING 1.2.840.114 350.1.13.10 4.2.7.2.686 [id number] 134 [id number] [facility] 2023-05-30 15:30:00 2023-05-30 15:33:45 Outpatient R DONY SADLER [facility] [id number] [facility] 2023-05-30 15:30:00 2023-05-30 15:33:45 Routine Visit Dony Sadler [facility] BUILDING 1.2.840.114 350.1.13.10 4.2.7.2.686 [id number] 134 [id number] [facility] 2023-05-29 00:00:2023-05-29 00:00:00 Patient Secure Msg Dony Sadler [facility] 1..840.114 350.1.13.10 4.2.7.2.686 [id number] 134 [id number] [facility] 2023-05-24 16:15:00 2023-05-24 16:15:00 Outpatient R BRIAN JOHNSON CHERYAL [facility] [id number] [facility] 2023-05-24 13:45:00 2023-05-24 14:11:02 Outpatient R DONY SADLER [facility] [id number] [facility] 2023-05-24 13:45:00 2023-05-24 14:11:02 Routine Visit [facility] BU[facility] 1..840.114 350.1.13.10 4.2.7.2.686 [id number] 134 [id number] [facility] 2023-05-15 15:00:00 2023-05-15 15:35:09 Routine Visit Dony Sadler [facility] 1.2.840.114 350.1.13.10 4.2.7.2.686 [id number] 134 [id number] [facility] 2023-05-15 13:40:00 2023-05-15 14:29:01 Outpatient R KEVIN AGUIRRE [facility] [id number] [facility] 2023-05-15 13:40:00 2023-05-15 14:29:01 Urgent Care Kevin Aguirre Unknown, Attending [facility] 1.2.840.114 350.1.13.10 4.2.7.2.686 [id number] [facility] 2023-05-15 00:00:00 2023-05-15 00:00:00 Letter (Out) [facility] 1.2.840.114 350.1.13.10 4.2.7.2.686 [id number] 134 [id number] [facility] 2023-05-14 00:00:00 2023-05-14 00:00:00 Patient Secure Msg Dony Sadler [facility] 1.2.840.114 350.1.13.10 4.2.7.2.686 [id number] 134 [id number] [facility] 2023-05-14 00:00:00 2023-05-14 00:00:00 Patient Secure Msg Brian Johnson [facility] 1.2.840.114 350.1.13.10 4.2.7.2.686 [id number] 134 [id number] [facility] 2023-05-13 00:00:00 2023-05-13 00:00:00 Patient Secure Msg Elisha Alexia riverasol [facility] 1.2.840.114 350.1.13.10 4.2.7.2.686 [id number] 134 [id number] [facility] 2023-05-10 14:45:00 2023-05-10 15:14:16 Outpatient R BRIAN JOHNSON CHERYAL [facility] [id number] [facility] 2023-05-10 14:45:00 2023-05-10 15:14:16 Routine Visit Brian Johnson [facility] 1.2.840.114 350.1.13.10 4.2.7.2.686 [id number] 134 [id number] [facility] 2023-05-09 00:00:00 2023-05-09 00:00:00 Patient Secure Msg Pcp, Patient Does Not Have A [facility] 1.2.840.114 350.1.13.10 4.2.7.2.686 [id number] [facility] 2023-05-04 13:57:00 2023-05-07 12:20:00 Inpatient P ADJALEESA BENZ [facility] [id number] [facility] 2023-05-04 13:57:00 2023-05-07 12:20:00 Hospital Encounter AdJaleesa benz 1.2.840.1 07939.1.1 3.104.2.7 .3.568864 .8 [id number] [facility] 2023-05-04 21:49:00 2023-05-04 23:50:[address] [facility] 1.2.840.114 350.1.13.10 4.2.7.2.686 [id number] [id number] [facility] 2023-05-04 21:09:00 2023-05-04 22:39:00 Anesthesia Event Stephen Lucia Thomas 1.2.840.1 30127.1.1 3.104.2.7 .3.478152 .8 [id number] [facility] 2023-05-04 12:55:00 2023-05-04 12:55:00 Ancillary Procedure AdJaleesa benz 1.2.840.1 43470.1.1 3.104.2.7 .3.931946 .8 [id number] [facility] 2023-05-04 11:00:00 2023-05-04 12:40:55 Outpatient R ADJALEESA BENZ [facility] [id number] [facility] 2023-05-04 11:00:00 2023-05-04 12:40:55 Routine Visit DawsonJaleesa benz [facility], [facility] Nst 1.2.840.1 79880.1.1 3.104.2.7 .3.485045 .8 [id number] [facility] 2023-05-04 00:00:00 2023-05-04 00:00:00 Travel 1.2.840.1 40767.1.1 3.104.2.7 .3.987038 .8 1.2.840.114 350.1.13.10 4.2.7.3.698 084.8 [id number] [facility] 2023-05-01 18:40:00 2023-05-01 19:40:00 Ancillary Procedure Jaleesa Norris 1.2.840.1 42048.1.1 3.104.2.7 .3.848439 .8 [id number] [facility] 2023-05-01 15:00:00 2023-05-01 16:20:10 Outpatient R JALEESA NORRIS [facility] [id number] [facility] 2023-05-01 15:00:00 2023-05-01 16:20:10 Routine Visit Jaleesa Norris [facility], [facility] Nst 1.2.840.1 95478.1.1 3.104.2.7 .3.596105 .8 [id number] [facility] 2023-05-01 00:00:00 2023-05-01 00:00:00 Patient Secure Msg Dony Sadler Yossi [facility] BUILD[facility] 1.2.840.114 350.1.13.10 4.2.7.2.686 [id number] 134 [id number] [facility] 2023-04-30 00:00:00 2023-04-30 00:00:00 Travel 1.2.840.1 65451.1.1 3.104.2.7 .3.496726 .8 1.2.840.114 350.1.13.10 4.2.7.3.698 084.8 [id number] [facility] 2023-04-27 12:15:00 2023-04-27 12:22:51 Ancillary Procedure Jaleesa Norris 1.2.840.1 57312.1.1 3.104.2.7 .3.480541 .8 [id number] [facility] 2023-04-27 10:00:00 2023-04-27 12:02:55 Outpatient R JR JALEESA [facility] [id number] [facility] 2023-04-27 10:00:00 2023-04-27 12:02:55 Routine Visit Jaleesa Norris, [facility] Nst 1.2.840.1 19045.1.1 3.104.2.7 .3.596402 .8 [id number] [facility] 2023-04-27 00:00:00 2023-04-27 00:00:00 Orders Only Doctor Unassigned, Barre 1.2.840.1 25758.1.1 3.104.2.7 .3.814695 .8 [id number] [facility] 2023-04-27 00:00:00 2023-04-27 00:00:00 Travel 1.2.840.1 55268.1.1 3.104.2.7 .3.331362 .8 1.2.840.114 350.1.13.10 4.2.7.3.698 084.8 [id number] [facility] 2023-04-26 00:00:00 2023-04-26 00:00:00 Travel 1.2.840.1 00124.1.1 3.104.2.7 .3.262128 .8 1.2.840.114 350.1.13.10 4.2.7.3.698 084.8 [id number] [facility] 2023-04-25 00:00:00 2023-04-25 00:00:00 Kevin Iqbal 1.2.840.1 75550.1.1 3.104.2.7 .3.422660 .8 [id number] [facility] 2023-04-24 11:50:00 2023-04-24 13:29:50 Ancillary Procedure AdJaleesa benz 1.2.840.1 67051.1.1 3.104.2.7 .3.087585 .8 [id number] [facility] 2023-04-24 10:00:00 2023-04-24 11:36:22 Outpatient R JALEESA NORRIS [facility] [id number] [facility] 2023-04-24 10:00:00 2023-04-24 11:36:22 Routine Visit Jaleesa Norris Room, [facility] Nst 1.2.840.1 59514.1.1 3.104.2.7 .3.265192 .8 [id number] [facility] 2023-04-24 00:00:00 2023-04-24 00:00:00 Travel 1.2.840.1 21633.1.1 3.104.2.7 .3.673842 .8 1.2.840.114 350.1.13.10 4.2.7.3.698 084.8 [id number] [facility] 2023-04-23 00:00:00 2023-04-23 00:00:00 Travel 1.2.840.1 31690.1.1 3.104.2.7 .3.848049 .8 1.2.840.114 350.1.13.10 4.2.7.3.698 084.8 [id number] [facility] 2023-04-20 00:00:00 2023-04-20 00:00:00 Patient Secure Msg Sadler, Dony Cam [facility] 1.2.840.114 350.1.13.10 4.2.7.2.686 [id number] [facility] 2023-04-19 17:55:00 2023-04-19 18:55:00 Ancillary Procedure Jaleesa Norris 1.2.840.1 79667.1.1 3.104.2.7 .3.612409 .8 [id number] [facility] 2023-04-19 14:00:00 2023-04-19 14:58:21 Outpatient R JALEESA NORRIS [facility] [id number] [facility] 2023-04-19 14:00:00 2023-04-19 14:58:21 Routine Visit Dony Sadler Vivian [facility], [facility] Nst 1.2.840.1 59499.1.1 3.104.2.7 .3.209991 .8 [id number] [facility] 2023-04-19 00:00:00 2023-04-19 00:00:00 Travel 1.2.840.1 18173.1.1 3.104.2.7 .3.535323 .8 1.2.840.114 350.1.13.10 4.2.7.3.698 084.8 [id number] [facility] 2023-04-18 00:00:00 2023-04-18 00:00:00 Telephone Dony Sadler 1.2.840.1 37976.1.1 3.104.2.7 .3.533058 .8 [id number] [facility] 2023-04-17 00:00:00 2023-04-17 00:00:00 Patient Secure Msg Dony Sadler 1.2.840.1 48744.1.1 3.104.2.7 .3.616969 .8 [id number] [facility] 2023-04-16 09:15:00 2023-04-16 09:59:27 Ancillary Procedure Jared-Caprice Ruiz 1.2.840.1 15199.1.1 3.104.2.7 .3.988838 .8 [id number] [facility] 2023-04-16 08:00:00 2023-04-16 09:19:45 Routine Visit Dony Sadler Room, [facility] Nst 1.2.840.1 65571.1.1 3.104.2.7 .3.165508 .8 [id number] [facility] 2023-04-16 08:00:00 2023-04-16 08:00:00 Outpatient R DONY SADLER [facility] [id number] [facility] 2023-04-15 00:00:00 2023-04-15 00:00:00 Travel 1.2.840.1 22239.1.1 3.104.2.7 .3.925811 .8 1.2.840.114 350.1.13.10 4.2.7.3.698 084.8 [id number] [facility] 2023-04-12 22:40:00 2023-04-12 23:40:00 Ancillary Procedure Dony Sadler Yossi 1.2840.1 19242.1.1 3.104.2.7 .3.513389 .8 [id number] [facility] 2023-04-12 10:00:00 2023-04-12 11:06:41 Outpatient R DONY SADLER [facility] [id number] [facility] 2023-04-12 10:00:00 2023-04-12 11:06:41 Routine Visit Dony Sadler Yossi [facility], [facility] Nst 1.2840.1 73527.1.1 3.104.2.7 .3.903359 .8 [id number] [facility] 2023-04-12 00:00:00 2023-04-12 00:00:00 Telephone Dony Sadler Yossi 1.2.840.1 78073.1.1 3.104.2.7 .3.763369 .8 [id number] [facility] 2023-04-12 00:00:00 2023-04-12 00:00:00 Orders Only Doctor Unassigned, Barre 1.2.840.1 56010.1.1 3.104.2.7 .3.390901 .8 [id number] [facility] 2023-04-12 00:00:00 2023-04-12 00:00:00 Travel 1.2.840.1 40202.1.1 3.104.2.7 .3.015033 .8 1.2.840.114 350.1.13.10 4.2.7.3.698 084.8 [id number] [facility] 2023-04-11 00:00:00 2023-04-11 00:00:00 Travel 1.2.840.1 12384.1.1 3.104.2.7 .3.859433 .8 1.2.840.114 350.1.13.10 4.2.7.3.698 084.8 [id number] [facility] 2023-04-10 09:00:00 2023-04-10 09:46:27 Speeder Machine Operator Visit Joseluis Roth Ultrasound, Adc Mfm 1.2.840.1 11822.1.1 3.104.2.7 .3.645248 .8 [id number] [facility] 2023-04-10 09:00:00 2023-04-10 09:00:00 Outpatient P JOSELUIS ROTH [facility] [id number] [facility] 2023-04-10 00:00:00 2023-04-10 00:00:00 Travel 1.2.840.1 70355.1.1 3.104.2.7 .3.855427 .8 1.2.840.114 350.1.13.10 4.2.7.3.698 084.8 [id number] [facility] 2023-04-09 11:30:00 2023-04-09 12:30:00 Ancillary Procedure Dony Sadler Cam 1.2.840.1 27099.1.1 3.104.2.7 .3.858843 .8 [id number] [facility] 2023-04-09 10:00:00 2023-04-09 11:26:43 Outpatient R UZMA SADLEREN [facility] [id number] [facility] 2023-04-09 10:00:00 2023-04-09 11:26:43 Routine Visit SadlerUzmajada Ray [facility] 1.2.840.1 87733.1.1 3.104.2.7 .3.136455 .8 [id number] [facility] 2023-04-08 00:00:00 2023-04-08 00:00:00 Travel 1.2.840.1 46752.1.1 3.104.2.7 .3.635587 .8 1.2.840.114 350.1.13.10 4.2.7.3.698 084.8 [id number] [facility] 2023-04-07 00:00:00 2023-04-07 00:00:00 Case Management oDny Sadler 1.2.840.1 02560.1.1 3.104.2.7 .3.574390 .8 [id number] [facility] 2023-04-05 14:20:00 2023-04-05 15:20:00 Ancillary Procedure Dony Sadler 1.2.840.1 45753.1.1 3.104.2.7 .3.908911 .8 [id number] [facility] 2023-04-05 13:00:00 2023-04-05 14:11:01 Ancillary Procedure Dony Sadler Cam 1.2.840.1 05409.1.1 3.104.2.7 .3.648563 .8 [id number] [facility] 2023-04-05 11:00:00 2023-04-05 12:06:17 Outpatient R UZMA SADLEREN [facility] [id number] [facility] 2023-04-05 11:00:00 2023-04-05 12:06:17 Routine Visit Dony Sadler Room, [facility] Nst 1.2.840.1 02974.1.1 3.104.2.7 .3.790749 .8 [id number] [facility] 2023-04-05 00:00:00 2023-04-05 00:00:00 Travel 1.2.840.1 57412.1.1 3.104.2.7 .3.249933 .8 1.2.840.114 350.1.13.10 4.2.7.3.698 084.8 [id number] [facility] 2023-04-04 16:37:00 2023-04-04 21:43:00 Outpatient P DONY SADLER [facility] [id number] [facility] 2023-04-04 16:37:00 2023-04-04 21:43:00 Hospital Encounter Dony Sadler 1.2.840.1 54817.1.1 3.104.2.7 .3.835451 .8 [id number] [facility] 2023-04-04 00:00:00 2023-04-04 00:00:00 Telephone Dony Sadler 1.2.840.1 90568.1.1 3.104.2.7 .3.546496 .8 [id number] [facility] 2023-04-04 00:00:00 2023-04-04 00:00:00 Travel 1.2.840.1 29858.1.1 3.104.2.7 .3.158397 .8 1.2.840.114 350.1.13.10 4.2.7.3.698 084.8 [id number] [facility] 2023-04-02 09:10:00 2023-04-02 09:13:52 Ancillary Procedure Dony Sadler 1.2.840.1 18388.1.1 3.104.2.7 .3.115374 .8 [id number] [facility] 2023-04-02 08:00:00 2023-04-02 09:10:06 Routine Visit Dony Sadler [facility] Herbie, [facility] Nst 1.2.840.1 79492.1.1 3.104.2.7 .3.138022 .8 [id number] [facility] 2023-04-02 08:00:00 2023-04-02 08:00:00 Outpatient R DONY SADLER [facility] [id number] [facility] 2023-04-02 00:00:00 2023-04-02 00:00:00 Travel 1.2.840.1 56585.1.1 3.104.2.7 .3.540122 .8 1.2.840.114 350.1.13.10 4.2.7.3.698 084.8 [id number] [facility] 2023-03-29 12:40:00 2023-03-29 13:23:56 Outpatient R KEVIN AGUIRRE [facility] [id number] [facility] 2023-03-29 12:40:00 2023-03-29 13:23:56 Urgent Care Unknown, Attending Kevin Aguirre 1.2.840.1 98571.1.1 3.104.2.7 .3.617164 .8 [id number] [facility] 2023-03-29 11:00:00 2023-03-29 12:38:35 Routine Visit Dony Sadler Herbie, [facility] Nst 1.2.840.1 70223.1.1 3.104.2.7 .3.831041 .8 [id number] [facility] 2023-03-29 00:00:00 2023-03-29 00:00:00 Refill Kevin Aguirre 1.2.840.1 00510.1.1 3.104.2.7 .3.295228 .8 [id number] [facility] 2023-03-29 00:00:00 2023-03-29 00:00:00 Telephone Provider, [facility] 1.2.840.1 38752.1.1 3.104.2.7 .3.254644 .8 [id number] [facility] 2023-03-29 00:00:00 2023-03-29 00:00:00 Patient Secure Msg Kevin Aguirre [facility] 1.2.840.114 350.1.13.10 4.2.7.2.686 [id number] [facility] 2023-03-29 00:00:00 2023-03-29 00:00:00 Travel 1.2.840.1 55125.1.1 3.104.2.7 .3.990002 .8 1.2.840.114 350.1.13.10 4.2.7.3.698 084.8 [id number] [facility] 2023-03-28 00:00:00 2023-03-28 00:00:00 Travel 1.2.840.1 97297.1.1 3.104.2.7 .3.669496 .8 1.2.840.114 350.1.13.10 4.2.7.3.698 084.8 [id number] [facility] 2023-03-26 00:00:00 2023-03-26 00:00:00 Patient Secure Msg Dony Sadler 1.2.840.1 91941.1.1 3.104.2.7 .3.268352 .8 [id number] [facility] 2023-03-21 09:45:00 2023-03-21 10:17:27 Speeder Machine Operator Visit Awa Hdez 2, [facility] Room 1.2.840.1 85717.1.1 3.104.2.7 .3.642658 .8 [id number] [facility] 2023-03-21 09:45:00 2023-03-21 09:45:00 Outpatient P AWA HDEZ [facility] [id number] [facility] 2023-03-21 00:00:00 2023-03-21 00:00:00 Letter (Out) Awa Hdez 1.2.840.1 60094.1.1 3.104.2.7 .3.068192 .8 [id number] [facility] 2023-03-21 00:00:00 2023-03-21 00:00:00 Travel 1.2.840.1 08487.1.1 3.104.2.7 .3.566912 .8 1.2.840.114 350.1.13.10 4.2.7.3.698 084.8 [id number] [facility] 2023-03-20 10:30:00 2023-03-20 10:30:00 Outpatient R DONY SADLER [facility] [id number] [facility] 2023-03-13 13:15:00 2023-03-13 13:45:47 Outpatient R DONY SADLER [facility] [id number] [facility] 2023-03-13 13:15:00 2023-03-13 13:45:47 Routine Visit Dony Sadler 1.2.840.1 26184.1.1 3.104.2.7 .3.667215 .8 [id number] [facility] 2023-03-13 00:00:00 2023-03-13 00:00:00 Orders Only Doctor Unassigned, [place] 1.2.840.1 23179.1.1 3.104.2.7 .3.197243 .8 [id number] [facility] 2023-03-12 00:00:00 2023-03-12 00:00:00 Travel 1.2.840.1 61460.1.1 3.104.2.7 .3.920427 .8 1.2.840.114 350.1.13.10 4.2.7.3.698 084.8 [id number] [facility] 2023-03-07 00:00:00 2023-03-07 00:00:00 Telephone Dony Sadler 1.2.840.1 46323.1.1 3.104.2.7 .3.383397 .8 [id number] [facility] 2023-03-06 14:00:00 2023-03-06 14:12:11 Outpatient R DONY SADLER [facility] [id number] [facility] 2023-03-06 14:00:00 2023-03-06 14:12:11 Nurse Visit Dony Sadler Nurse, [facility] 1.2.840.1 40506.1.1 3.104.2.7 .3.019351 .8 [id number] [facility] 2023-03-06 00:00:00 2023-03-06 00:00:00 Travel 1.2.840.1 64886.1.1 3.104.2.7 .3.619239 .8 1.2.840.114 350.1.13.10 4.2.7.3.698 084.8 [id number] [facility] 2023-02-27 10:30:00 2023-02-27 12:06:22 Nurse Visit Dony Sadler Nurse, [facility] 1.2.840.1 46590.1.1 3.104.2.7 .3.641816 .8 [id number] [facility] 2023-02-27 10:30:00 2023-02-27 10:30:00 Outpatient R DONY SADLER [facility] [id number] [facility] 2023-02-27 00:00:00 2023-02-27 00:00:00 Refill Dony Sadler 1.2.840.1 47322.1.1 3.104.2.7 .3.936954 .8 [id number] [facility] 2023-02-27 00:00:00 2023-02-27 00:00:00 Travel 1.2.840.1 94990.1.1 3.104.2.7 .3.917434 .8 1.2.840.114 350.1.13.10 4.2.7.3.698 084.8 [id number] [facility] 2023-02-20 14:30:00 2023-02-20 14:30:00 Nurse Visit Dony Sadler Nurse, [facility] 1.2.840.1 13699.1.1 3.104.2.7 .3.529272 .8 [id number] [facility] 2023-02-20 14:30:00 2023-02-20 14:29:48 Outpatient R DONY SADLER [facility] [id number] [facility] 2023-02-20 00:00:00 2023-02-20 00:00:00 Telephone Dony Sadler 1.2.840.1 59787.1.1 3.104.2.7 .3.663491 .8 [id number] [facility] 2023-02-19 00:00:00 2023-02-19 00:00:00 Patient Secure Msg Dony Sadler [facility] 1.2.840.114 350.1.13.10 4.2.7.2.686 [id number] 134 [id number] [facility] 2023-02-19 00:00:00 2023-02-19 00:00:00 Travel 1.2.840.1 29513.1.1 3.104.2.7 .3.709121 .8 1.2.840.114 350.1.13.10 4.2.7.3.698 084.8 [id number] [facility] 2023-02-14 10:15:00 2023-02-14 11:26:24 Speeder Machine Operator Visit Dony Sadler 2, [facility] 1.2.840.1 08245.1.1 3.104.2.7 .3.543861 .8 [id number] [facility] 2023-02-14 10:15:00 2023-02-14 10:15:00 Outpatient R DONY SADLER [facility] [id number] [facility] 2023-02-13 13:00:00 2023-02-13 13:40:55 Outpatient R DONY SADLER [facility] [id number] [facility] 2023-02-13 13:00:00 2023-02-13 13:40:55 Routine Visit Dony Sadler 1.2.840.1 49308.1.1 3.104.2.7 .3.225600 .8 [id number] [facility] 2023-02-13 00:00:00 2023-02-13 00:00:00 Travel 1.2.840.1 67495.1.1 3.104.2.7 .3.315326 .8 1.2.840.114 350.1.13.10 4.2.7.3.698 084.8 [id number] [facility] 2023-02-06 10:00:00 2023-02-06 10:19:27 Outpatient R DONY SADLER [facility] [id number] [facility] 2023-02-06 10:00:00 2023-02-06 10:19:27 Nurse Visit Dony Sadler Nurse, [facility] 1.2.840.1 32988.1.1 3.104.2.7 .3.774734 .8 [id number] [facility] 2023-02-06 00:00:00 2023-02-06 00:00:00 Travel 1.2.840.1 28767.1.1 3.104.2.7 .3.010930 .8 1.2.840.114 350.1.13.10 4.2.7.3.698 084.8 [id number] [facility] 2023-02-05 00:00:00 2023-02-05 00:00:00 Travel 1.2.840.1 20811.1.1 3.104.2.7 .3.600331 .8 1.2.840.114 350.1.13.10 4.2.7.3.698 084.8 [id number] [facility] 2023-01-31 13:30:00 2023-01-31 14:40:50 Speeder Machine Operator Visit 2, [facility] Room Karin Crowley [facility] CARDIOLOGY [facility] 1.2.840.114 350.1.13.10 4.2.7.2.686 [id number] [facility] 2023-01-31 13:30:00 2023-01-31 13:30:00 Outpatient P KARIN CROWLEY [facility] [id number] [facility] 2023-01-31 00:00:00 2023-01-31 00:00:00 Refill Dony Sadler [facility] 1.2.840.114 350.1.13.10 4.2.7.2.686 [id number] 134 [id number] [facility] 2023-01-30 12:05:00 2023-01-30 13:38:00 Outpatient X DONY SADLER [facility] [id number] [facility] 2023-01-30 12:05:00 2023-01-30 13:38:00 Hospital Encounter Dony Sadler [facility] 1.2.840.114 350.1.13.10 4.2.7.2.686 [id number] 083 [id number] [facility] 2023-01-30 10:00:00 2023-01-30 11:47:37 Outpatient R DONY SADLER [facility] [id number] [facility] 2023-01-30 10:00:00 2023-01-30 11:47:37 Nurse Visit Nurse, [facility] 1.2.840.114 350.1.13.10 4.2.7.2.686 [id number] 134 [id number] [facility] 2023-01-23 14:15:00 2023-01-23 14:30:00 [facility] 1.2.840.114 350.1.13.10 4.2.7.2.686 [id number] 134 [id number] [facility] 2023-01-23 14:15:00 2023-01-23 14:15:00 Outpatient R DONY SADLER [facility] [id number] [facility] 2023-01-22 10:45:00 2023-01-22 10:45:00 Outpatient P [facility] [id number] [facility] 2023-01-16 10:00:00 2023-01-16 10:21:47 Outpatient R DONY SADLER [facility] [id number] [facility] 2023-01-16 10:00:00 2023-01-16 10:21:47 Nurse Visit Nurse, [facility] 1.2.840.114 350.1.13.10 4.2.7.2.686 [id number] 134 [id number] [facility] 2023-01-10 09:00:00 2023-01-10 09:00:00 Outpatient R KEVIN AGUIRRE [facility] [id number] [facility] 2023-01-10 00:00:00 2023-01-10 00:00:00 Patient Secure Msg Viktoriya Dony Cam [facility] 1.2840.114 350.1.13.10 4.2.7.2.686 [id number] 134 [id number] [facility] 2023-01-09 11:00:00 2023-01-09 11:00:00 Routine Visit Kevin Aguirre [facility] 1.2840.114 350.1.13.10 4.2.7.2.686 [id number] 134 [id number] [facility] 2023-01-09 08:30:00 2023-01-09 09:32:26 Outpatient R TRUONG Rivera FRAZIER 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 [id number] [facility] 2023-01-02 11:30:00 2023-01-02 11:37:54 Speeder Machine Operator Visit 1, [facility] Room Karin Crowley [facility] CARDIOLOGY [facility] 1.284.114 350.1.13.10 4.2.7.2.686 [id number] [facility] 2023-01-02 11:00:00 2023-01-02 11:15:00 Speeder Machine Operator Visit Pob, [facility] Main Kevin Aguirre [facility] 1.840.114 350.1.13.10 4.2.7.2.686 [id number] 353 [id number] [facility] 2023-01-02 08:45:00 2023-01-02 09:34:26 Routine Visit Kevin Aguirre [facility] 1.20.114 350.1.13.10 4.2.7.2.686 [id number] 134 [id number] [facility] 2023-01-02 00:00:00 2023-01-02 00:00:00 Letter (Out) Kevin Aguirre [facility] 1.2840.114 350.1.13.10 4.2.7.2.686 [id number] 134 [id number] [facility] 2022-12-28 20:16:00 2022-12-28 22:25:00 Outpatient X VIKTORIYA DONY [facility] [id number] [facility] 2022-12-28 20:16:00 2022-12-28 22:25:[address] [facility] 1.20.114 350.1.13.10 4.2.7.2.686 [id number] 083 [id number] [facility] 2022-12-28 00:00:00 2022-12-28 00:00:00 Patient Secure Msg Viktoriya Dony [facility] 1..114 350.1.13.10 4.2.7.2.686 [id number] 134 [id number] [facility] 2022-12-28 00:00:00 2022-12-28 00:00:00 Nurse Triage Chris Sosa [facility] 1..114 350.1.13.10 4.2.7.2.686 [id number] 019 [id number] [facility] 2022-12-28 00:00:00 2022-12-28 00:00:00 Orders Only Doctor Unassigned, Bar[place] [facility] 1.20.114 350.1.13.10 4.2.7.2.686 [id number] [facility] 2022-12-27 10:00:00 2022-12-27 10:00:00 Outpatient R 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 [id number] [facility] 2022-12-15 00:00:00 2022-12-15 00:00:00 Patient Secure Msg Dony Sadler [facility] 1..840.114 350.1.13.10 4.2.7.2.686 [id number] 134 [id number] [facility] 2022-12-13 11:15:00 2022-12-13 12:52:28 Outpatient R DONY SADLER [facility] [id number] [facility] 2022-12-13 11:15:00 2022-12-13 12:52:28 Routine Visit Dony Sadler Yossi [facility] BUILDING 1..840.114 350.1.13.10 4.2.7.2.686 [id number] 134 [id number] [facility] 2022-12-12 09:00:00 2022-12-12 09:30:00 Speeder Machine Operator Visit Ultrasound, Adc m Karin Crowley [facility] 1..840.114 350.1.13.10 4.2.7.2.686 [id number] 134 [id number] [facility] 2022-12-12 09:00:00 2022-12-12 09:00:00 Outpatient P KARIN CROWLEY [facility] [id number] [facility] 2022-12-08 15:30:00 2022-12-08 15:30:00 Outpatient R [facility] [id number] [facility] 2022-12-08 14:30:00 2022-12-08 14:30:00 Outpatient R DONY SALDER [facility] [id number] [facility] 2022-12-08 00:00:00 2022-12-08 00:00:00 Telephone Kevin Aguirre [facility] 1..840.114 350.1.13.10 4.2.7.2.686 [id number] 134 [id number] [facility] 2022-12-08 00:00:00 2022-12-08 00:00:00 Orders Only Doctor Unassigned, [place] [facility] 1.2840.114 350.1.13.10 4.2.7.2.686 [id number] [facility] 2022-12-01 00:00:00 2022-12-01 00:00:00 Patient Secure Msg Dony Sadler [facility] BUILDING 1.2840.114 350.1.13.10 4.2.7.2.686 [id number] 134 [id number] [facility] 2022-11-27 00:00:00 2022-11-27 00:00:00 Telephone Kevin Aguirre [facility] BUILDING 1.2840.114 350.1.13.10 4.2.7.2.686 [id number] 134 [id number] [facility] 2022-11-16 08:15:00 2022-11-16 08:19:10 Speeder Machine Operator Visit 2, [facility] 1.2840.114 350.1.13.10 4.2.7.2.686 [id number] [facility] 2022-11-16 08:15:00 2022-11-16 08:15:00 Outpatient R DONY SADLER [facility] [id number] [facility] 2022-11-16 00:00:00 2022-11-16 00:00:00 Patient Secure Msg [facility] 1.2.840.114 350.1.13.10 4.2.7.2.686 [id number] 134 [id number] [facility] 2022-11-16 00:00:00 2022-11-16 00:00:00 Patient Secure Msg [facility] 1.2.840.114 350.1.13.10 4.2.7.2.686 [id number] 134 [id number] [facility] 2022-11-15 16:00:00 2022-11-15 16:22:05 Outpatient R KEVIN AGUIRRE [facility] [id number] [facility] 2022-11-15 16:00:00 2022-11-15 16:22:05 Routine Visit Kevin Aguirre [facility] 1.2840.114 350.1.13.10 4.2.7.2.686 [id number] 134 [id number] [facility] 2022-11-15 14:30:00 2022-11-15 16:06:06 Speeder Machine Operator Visit 2, Ad[facility] Lab Dony Sadler [facility] 1.284.114 350.1.13.10 4.2.7.2.686 [id number] [facility] 2022-11-13 11:00:00 2022-11-13 11:30:00 Telemedici ne Visit Faculty, Lucy Walton [facility] C[facility]IOLOG[facility] 1.84.114 350.1.13.10 4.2.7.2.686 [id number] [facility] 2022-11-13 11:00:00 2022-11-13 11:00:00 Outpatient R LUCY SOTELO [facility] [id number] [facility] 2022-11-02 00:00:00 2022-11-02 00:00:00 Patient Secure Msg Dony Sadler [facility] 1.284.114 350.1.13.10 4.2.7.2.686 [id number] 134 [id number] [facility] 2022-10-31 00:00:00 2022-10-31 00:00:00 Telephone Dony Sadler [facility] 1.284.114 350.1.13.10 4.2.7.2.686 [id number] 134 [id number] [facility] 2022-10-24 09:30:00 2022-10-24 10:20:28 Outpatient R ISABELLA SKY [facility] [id number] [facility] 2022-10-24 09:30:00 2022-10-24 10:20:28 Office Visit Isabella Sky [facility] BU[facility] 1.114 350.1.13.10 4.2.7.2.686 [id number] [id number] [facility] 2022-10-24 00:00:00 2022-10-24 00:00:00 Orders Only Doctor Unassigned, [place] [facility] 1.114 350.1.13.10 4.2.7.2.686 [id number] [facility] 2022-10-23 00:00:00 2022-10-23 00:00:00 Case Management Uzma Sadleren Yossi [facility] BUILDING 1.114 350.1.13.10 4.2.7.2.686 [id number] 134 [id number] [facility] 2022-10-18 14:30:00 2022-10-18 15:32:47 Outpatient R DONY SADLER [facility] [id number] [facility] 2022-10-18 14:30:00 2022-10-18 15:32:47 Office Visit [facility]ya [facility] 1.114 350.1.13.10 4.2.7.2.686 [id number] 134 [id number] [facility] 2022-10-17 00:00:00 2022-10-17 00:00:00 Patient Secure Msg Shivani Chavarria [facility] BUILDING 1.114 350.1.13.10 4.2.7.2.686 [id number] 134 [id number] [facility] 2022-10-16 16:54:35 2022-10-16 23:59:00 Outpatient R DONY SADLER [facility] [id number] [facility] 2022-10-16 16:54:35 2022-10-16 23:59:00 Hospital Encounter Dony Sadler 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 [id number] [facility] 2022-10-11 14:30:00 2022-10-11 14:51:23 [facility] 1.284.114 350.1.13.10 4.2.7.2.686 [id number] 134 [id number] [facility] 2022-10-11 00:00:00 2022-10-11 00:00:00 Letter (Out) [facility] 1.2840.114 350.1.13.10 4.2.7.2.686 [id number] 134 [id number] [facility] 2022-10-07 08:00:00 2022-10-07 08:15:00 Speeder Machine Operator Visit Pob, [facility] Lab Main [facility] 1.2.114 350.1.13.10 4.2.7.2.686 [id number] 353 [id number] [facility] 2022-10-07 08:00:00 2022-10-07 08:00:00 Outpatient R DONY SADLER [facility] [id number] [facility] 2022-10-05 16:15:00 2022-10-05 16:30:00 Speeder Machine Operator Visit 2, [facility] 1.2.840.114 350.1.13.10 4.2.7.2.686 [id number] 353 [id number] [facility] 2022-10-05 16:15:00 2022-10-05 16:15:00 [facility] [id number] [facility] 2022-10-05 00:00:00 2022-10-05 00:00:00 Telephone Dony Sadler [facility] 1..840.114 350.1.13.10 4.2.7.2.686 [id number] 134 [id number] [facility] 2022-10-04 00:00:00 2022-10-04 00:00:00 Patient Secure Msg Viktoriya [facility] BUILDING 1..840.114 350.1.13.10 4.2.7.2.686 [id number] 134 [id number] [facility] 2022-10-03 14:00:00 2022-10-03 14:15:00 Speeder Machine Operator Visit 2, Adc Lab Viktoriya [facility] BUILDING 1.2.840.114 350.1.13.10 4.2.7.2.686 [id number] [facility] 2022-10-03 13:00:00 2022-10-03 13:52:59 Outpatient R VIKTORIYA [facility] [id number] [facility] 2022-10-03 13:00:00 2022-10-03 13:52:59 Office Visit Dony Sadler [facility] 1.2.840.114 350.1.13.10 4.2.7.2.686 [id number] 134 [id number] [facility] 2022-09-29 00:00:00 2022-09-29 00:00:00 Telephone Dony Sadler [facility] 1.2.840.114 350.1.13.10 4.2.7.2.686 [id number] 134 [id number] [facility] 2022-09-22 08:00:00 2022-09-22 08:41:13 Nurse Visit Nurse, [facility] Dony Sadler [facility] 1.2.840.114 350.1.13.10 4.2.7.2.686 [id number] 134 [id number] [facility] 2022-09-22 08:00:00 2022-09-22 08:00:00 Outpatient R DONY SADLER [facility] [id number] [facility] 2022-07-19 10:30:00 2022-07-19 10:30:00 Outpatient R DONY SADLER [facility] [id number] [facility] 2022-07-04 16:15:00 2022-07-04 16:15:00 Outpatient R LEISA MAN [facility] [id number] [facility] 2022-06-30 00:00:00 2022-06-30 00:00:00 Telephone Leisa Man [facility] 1.2.840.114 350.1.13.10 4.2.7.2.686 [id number] [facility] 2022-05-30 15:30:00 2022-05-30 15:30:00 Outpatient R CAROL ANN GUTIERREZ [facility] [id number] [facility] 2022-05-23 14:15:00 2022-05-23 14:15:00 Outpatient R CAROL ANN GUTIERREZ [facility] [id number] [facility] 2022-03-20 11:00:00 2022-03-20 11:28:29 Outpatient R LEISA MAN [facility] [id number] [facility] 2022-03-20 11:00:00 2022-03-20 11:28:29 Office Visit Leisa Man [facility] BUILDING 1.2840.114 350.1.13.10 4.2.7.2.686 [id number] [facility] 2022-02-24 00:00:00 2022-02-24 00:00:00 Telephone Leisa Man [facility] 1.2840.114 350.1.13.10 4.2.7.2.686 [id number] [facility] 2022-02-17 09:05:00 2022-02-17 11:22:00 Outpatient R DONOVAN LEISA [facility] [id number] [facility] 2022-02-17 09:05:00 2022-02-17 11:22:00 Hospital Encounter Donovan [facility] 1.2840.114 350.1.13.10 4.2.7.2.686 [id number] [facility] 2022-02-17 10:15:00 2022-02-17 10:46:00 Surgery Donovan [facility] 1.2840.114 350.1.13.10 4.2.7.2.686 [id number] [facility] 2022-02-14 11:00:00 2022-02-14 11:15:00 Laboratory Only Only, Adc Test Leisa Man [facility] 1.2.84.114 350.1.13.10 4.2.7.2.686 [id number] [facility] 2022-02-14 11:00:00 2022-02-14 11:00:00 Outpatient R LEISA MAN [facility] [id number] [facility] 2022-02-14 00:00:00 2022-02-14 00:00:00 Orders Only Doctor Unassigned, [place] [facility] 1..114 350.1.13.10 4.2.7.2.686 [id number] [facility] 2022-01-30 11:00:00 2022-01-30 11:26:53 Office Visit Leisa Man [facility] 1.840.114 350.1.13.10 4.2.7.2.686 [id number] [facility] 2022-01-30 11:00:00 2022-01-30 11:26:53 Outpatient R LEISA MAN [facility] [id number] [facility] 2022-01-30 11:00:00 2022-01-30 11:00:00 Outpatient R LEISA MAN [facility] [id number] [facility] 2022-01-30 00:00:00 2022-01-30 00:00:00 Prep For Surgery Gloria Rogers [facility] 1..840.114 350.1.13.10 4.2.7.2.686 [id number] [facility] 2022-01-24 00:00:00 2022-01-24 00:00:00 [facility] ..840.114 350.1.13.10 4.2.7.2.686 [id number] [facility] 2022-01-18 13:00:00 2022-01-18 13:33:31 Outpatient R DONY SADLER [facility] [id number] [facility] 2022-01-18 13:00:00 2022-01-18 13:33:31 [facility] 1.2.840.114 350.1.13.10 4.2.7.2.686 [id number] [facility] 2022-01-18 13:00:00 2022-01-18 13:00:00 Outpatient R DONY SADLER [facility] [id number] [facility] 2022-01-12 10:00:00 2022-01-12 10:00:00 Outpatient R LEISA MAN [facility] [id number] [facility] 2022-01-12 00:00:00 2022-01-12 00:00:00 Telephone Dony Sadler [facility] 1.2.840.114 350.1.13.10 4.2.7.2.686 [id number] [facility] 2022-01-06 00:00:00 2022-01-06 00:00:00 Patient Secure Msg Dony [facility] BUILDING 1.2.840.114 350.1.13.10 4.2.7.2.686 [id number] [facility] 2022-01-04 09:00:00 2022-01-04 09:29:40 Outpatient R DONY SADLER [facility] [id number] [facility] 2022-01-04 09:00:00 2022-01-04 09:29:40 Office Visit Dony [facility] BUILDING 1.2.840.114 350.1.13.10 4.2.7.2.686 [id number] [facility] 2022-01-04 09:00:00 2022-01-04 09:00:00 Outpatient R DONY SADLER [facility] [id number] [facility] 2022-01-04 00:00:00 2022-01-04 00:00:00 Orders Only Doctor Unassigned, Barre [facility] 1.2840.114 350.1.13.10 4.2.7.2.686 [id number] [facility] 2021-12-27 00:00:00 2021-12-27 00:00:00 Refill Shahbaz Diana [facility] OFFICE BUILDING ONE 1.2.114 350.1.13.10 4.2.7.2.686 [id number] [facility] 2021-12-27 00:00:00 2021-12-27 00:00:00 Patient Secure Msg Dony [facility] BUILDING 1.20.114 350.1.13.10 4.2.7.2.686 [id number] [facility] 2021-12-05 09:30:00 2021-12-05 09:30:00 Outpatient R DOYN SADLER [facility] [id number] [facility] 2021-12-05 09:30:00 2021-12-05 09:30:00 Speeder Machine Operator Visit 2, Adc Lab Dony [facility] BUILDING 1.20.114 350.1.13.10 4.2.7.2.686 [id number] [facility] 2021-12-05 08:30:00 2021-12-05 09:05:44 Office Visit Dony [facility] BUILDING 1.2840.114 350.1.13.10 4.2.7.2.686 [id number] [facility] 2021-12-05 08:30:00 2021-12-05 09:05:44 Outpatient Sally DONY SADLER [facility] [id number] [facility] 2021-12-02 13:40:00 2021-12-02 14:10:09 Outpatient ALFONZO DUNN HOWARD [facility] [id number] [facility] 2021-12-02 13:40:00 2021-12-02 14:10:09 [facility] BU[facility] 1.2.840.114 350.1.13.10 4.2.7.2.686 [id number] [facility] 2021-12-02 13:40:00 2021-12-02 13:40:00 Outpatient ALFONZO DUNN HOWARD [facility] [id number] [facility] 2021-12-02 13:40:00 2021-12-02 13:40:00 Outpatient ALFONZO DUNN HOWARD [facility] [id number] [facility] 2021-12-01 10:45:00 2021-12-01 11:03:52 Office [facility] 1.2.840.114 350.1.13.10 4.2.7.2.686 [id number] [facility] 2021-12-01 10:45:00 2021-12-01 11:03:52 Outpatient LEISA LOPEZ [facility] [id number] [facility] 2021-12-01 10:45:00 2021-12-01 10:45:00 Outpatient LEISA LOPEZ [facility] [id number] [facility] 2021-11-29 13:00:00 2021-11-29 13:00:00 Outpatient ALFONZO DUNN HOWARD [facility] [id number] [facility] 2021-11-25 00:00:00 2021-11-25 00:00:00 Patient Secure Msg Doctor Unassigned, Barre [facility] 1.2840.114 350.1.13.10 4.2.7.2.686 [id number] [facility] 2021-11-15 00:00:00 2021-11-15 00:00:00 Telephone Leisa Man [facility] BUILDING 1.2.84.114 350.1.13.10 4.2.7.2.686 [id number] [facility] 2021-11-14 00:00:00 2021-11-14 00:00:00 Patient Secure Msg Shahbaz Diana [facility]LE [facility] BUILDING 1.2.840.114 350.1.13.10 4.2.7.2.686 [id number] [facility] 2021-11-11 14:30:29 2021-11-11 23:59:00 Hospital Encounter Shahbaz Diana [facility] 1.2840.114 350.1.13.10 4.2.7.2.686 [id number] [facility] 2021-11-11 14:28:29 2021-11-11 14:29:00 Outpatient R LEISA MAN [facility] [id number] [facility] 2021-11-11 14:28:29 2021-11-11 14:29:00 Hospital Encounter Leisa Man [facility] 1.2.840.114 350.1.13.10 4.2.7.2.686 [id number] [facility] 2021-11-11 00:00:00 2021-11-11 00:00:00 Outpatient R LEISA MAN [facility] [id number] [facility] 2021-11-10 08:33:23 2021-11-10 23:59:00 Outpatient R SHAHBAZ DIANA [facility] [id number] [facility] 2021-11-10 08:33:23 2021-11-10 23:59:00 Hospital Encounter Shahbaz [facility]NICOLE [facility] MEDICAL OFFICE BUILDING 1.2.840.114 350.1.13.10 4.2.7.2.686 [id number] [facility] 2021-11-10 08:15:00 2021-11-10 08:31:16 Outpatient R SHAHBAZ DIANA [facility] [id number] [facility] 2021-11-10 08:15:00 2021-11-10 08:31:16 Office Visit Shahbaz Diana [facility] MEDICAL OFFICE BUILDING 1..840.114 350.1.13.10 4.2.7.2.686 [id number] [facility] 2021-11-10 00:00:00 2021-11-10 00:00:00 Patient Secure Msg Shahbaz Diana [facility] MEDICAL OFFICE BUILDING 1.2.840.114 350.1.13.10 4.2.7.2.686 [id number] [facility] 2021-11-03 10:30:00 2021-11-03 11:05:32 Outpatient R MANLEISA DESAI [facility] [id number] [facility] 2021-11-03 09:50:53 2021-11-03 11:05:32 Office Visit Leisa Man [facility] NAL BUILDING 1..840.114 350.1.13.10 4.2.7.2.686 [id number] [facility] 2021-11-03 10:30:00 2021-11-03 10:30:00 Outpatient R LEISA MAN [facility] [id number] [facility] 2021-11-03 09:12:19 2021-11-03 09:27:19 Speeder Machine Operator Visit Lab, Ang - Db Shahbaz Diana [facility]?NICOLE [facility] MEDICAL OFFICE BUILDING 1..840.114 350.1.13.10 4.2.7.2.686 [id number] [facility] 2021-11-03 08:30:00 2021-11-03 09:11:33 Outpatient R SHAHBAZ DAINA [facility] [id number] [facility] 2021-11-03 08:08:52 2021-11-03 09:11:33 Office Visit [facility]NICOLE [facility] MEDICAL OFFICE BUILDING 1..840.114 350..13.10 4.2.7.2.686 [id number] [facility] 2021-11-03 09:00:00 2021-11-03 09:00:00 Outpatient R SHAHBAZ DIANA [facility] [id number] [facility] 2021-11-01 00:00:00 2021-11-01 00:00:00 Orders Only Doctor Unassigned, Barre [facility] 1..840.114 350.1.13.10 4.2.7.2.686 [id number] [facility] 2021-10-11 13:15:00 2021-10-11 13:33:59 Outpatient R CAROL ANN GUTIERREZ [facility] [id number] [facility] 2021-10-11 12:52:20 2021-10-11 13:33:59 Office [facility] 1..840.114 350.1.13.10 4.2.7.2.686 [id number] [facility] 2021-10-11 13:15:00 2021-10-11 13:15:00 Outpatient R BRENDA CAROL ANN [facility] [id number] [facility] 2021-10-11 13:15:00 2021-10-11 13:15:00 Outpatient R BRENDA CAROL ANN [facility] [id number] [facility] 2021-10-07 00:00:00 2021-10-07 00:00:00 Patient Secure Msg Shahbaz Diana [facility] BUILDING 1..840.114 350.1.13.10 4.2.7.2.686 [id number] [facility] 2021-10-06 10:45:00 2021-10-06 11:11:27 Outpatient R LEISA MAN [facility] [id number] [facility] 2021-10-06 10:29:30 2021-10-06 11:11:27 Office Visit Donovan Leisa [facility] 1..840.114 350.1.13.10 4.2.7.2.686 [id number] [facility] 2021-10-01 10:01:24 2021-10-01 23:59:00 Outpatient R ADALGISABELLE OTTYAMILETH [facility] [id number] [facility] 2021-10-01 10:00:00 2021-10-01 23:59:00 Hospital Encounter Shahbaz Diana [facility] 1..840.114 350.1.13.10 4.2.7.2.686 [id number] [facility] 2021-09-30 00:00:00 2021-09-30 00:00:00 Patient Secure Msg ManLeisa desai [facility] BUILDING 1.840.114 350.1.13.10 4.2.7.2.686 [id number] [facility] 2021-09-30 00:00:00 2021-09-30 00:00:00 Telephone Leisa Man [facility] BUILDING 1.2840.114 350.1.13.10 4.2.7.2.686 [id number] [facility] 2021-09-23 07:46:00 2021-09-23 12:49:00 Outpatient R MANPAVELEL [facility] [id number] [facility] 2021-09-23 07:46:00 2021-09-23 12:49:00 Hospital Encounter ManPavelel [facility] 1.2840.114 350.1.13.10 4.2.7.2.686 [id number] [facility] 2021-09-23 07:46:00 2021-09-23 12:49:00 Outpatient R MAN, LEISA [facility] [id number] [facility] 2021-09-23 08:30:00 2021-09-23 11:06:00 Surgery ManPavelel [facility] 1.2840.114 350.1.13.10 4.2.7.2.686 [id number] [facility] 2021-09-23 00:00:00 2021-09-23 00:00:00 Orders Only Doctor Unassigned, Barre [facility] 1.2840.114 350.1.13.10 4.2.7.2.686 [id number] [facility] 2021-09-22 11:15:00 2021-09-22 12:00:21 Outpatient R SHAHBAZ DIANA [facility] [id number] [facility] 2021-09-22 10:52:31 2021-09-22 12:00:21 Office Visit Shahbaz Diana A [facility] BUILDING 1.2.840.114 350.1.13.10 4.2.7.2.686 [id number] [facility] 2021-09-22 11:15:00 2021-09-22 11:15:00 Outpatient R ADALGISABELLE OTTYAMILETH [facility] [id number] [facility] 2021-09-20 11:27:52 2021-09-20 11:42:52 Speeder Machine Operator Visit 1, Adc Lab Lyubov [facility] 1.840.114 350.1.13.10 4.2.7.2.686 [id number] [facility] 2021-09-20 11:30:00 2021-09-20 11:30:00 Outpatient R BRENDA MCARTHUR [facility] [id number] [facility] 2021-09-20 00:00:00 2021-09-20 00:00:00 Orders Only Doctor Unassigned, Barre [facility] 1.284.114 350.1.13.10 4.2.7.2.686 [id number] [facility] 2021-08-25 00:00:00 2021-08-25 00:00:00 Patient Secure Msg Man Leisa [facility] 1.2.840.114 350.1.13.10 4.2.7.2.686 [id number] [facility] 2021-08-24 00:00:00 2021-08-24 00:00:00 Telephone Leisa Man [facility] 1.2.840.114 350.1.13.10 4.2.7.2.686 [id number] [facility] 2021-08-23 10:11:33 2021-08-23 10:26:33 Laboratory Only Only, Adc Test Leisa Man [facility] 1.2840.114 350.1.13.10 4.2.7.2.686 [id number] [facility] 2021-08-23 10:00:00 2021-08-23 10:00:00 Outpatient R LEISA MAN [facility] [id number] [facility] 2021-08-23 00:00:00 2021-08-23 00:00:00 Orders Only Doctor Unassigned, Barre [facility] 1.2840.114 350.1.13.10 4.2.7.2.686 [id number] [facility] 2021-08-22 08:30:00 2021-08-22 08:30:00 Outpatient R LEISA MAN [facility] [id number] [facility] 2021-08-05 00:00:00 2021-08-05 00:00:00 Prep For Surgery Gloria Rogers [facility] 1.2.840.114 350.1.13.10 4.2.7.2.686 [id number] [facility] 2021-08-05 00:00:00 2021-08-05 00:00:00 Prep For Surgery Gloria Rogers [facility] 1.2.840.114 350.1.13.10 4.2.7.2.686 [id number] [facility] 2021-08-04 13:00:42 2021-08-04 14:18:51 Office Visit Leisa Man [facility] 1.2.840.114 350.1.13.10 4.2.7.2.686 [id number] [facility] 2021-08-04 13:00:00 2021-08-04 13:00:00 Outpatient R LEISA MAN [facility] [id number] [facility] 2021-08-02 09:50:14 2021-08-02 10:56:59 Office Visit Shahbaz Diana [facility] John?Nicole [facility] Building 1..840.114 350.1.13.10 4.2.7.2.686 [id number] [facility] 2021-08-02 10:15:00 2021-08-02 10:15:00 Outpatient R SHAHBAZ DIANA [facility] [id number] [facility] 2021-07-25 14:00:00 2021-07-25 14:00:00 Outpatient R SHAHBAZ DIANA [facility] [id number] [facility] 2021-07-18 00:00:00 2021-07-18 00:00:00 Patient Secure Msg Shahbaz Diana [facility] John?Nicole morales [facility] Office Building 1..840.114 350.1.13.10 4.2.7.2.686 [id number] [facility] 2021-07-08 15:26:10 2021-07-08 23:59:00 Hospital Encounter Shahbaz Diana [facility] 1..840.114 350.1.13.10 4.2.7.2.686 [id number] [facility] 2021-07-08 00:00:00 2021-07-08 00:00:00 Outpatient R SHAHBAZ DIANA [facility] [id number] [facility] 2021-07-05 13:02:15 2021-07-05 14:16:19 Office Visit Shahbaz Diana [facility] Drew [facility] Office Building One 1..840.114 350.1.13.10 4.2.7.2.686 [id number] [facility] 2021-07-05 13:30:00 2021-07-05 13:30:00 [id number] 2021-07-05 13:30:00 2021-07-05 13:30:00 [facility] [id number] [facility] 2021-05-11 00:00:00 2021-05-11 00:00:00 Telephone Antonio Qureshi [facility] 1.2.840.114 350.1.13.58 9.2.7.2.686 [id number] 2021-05-11 00:00:00 2021-05-11 00:00:00 Telephone Antonio Qureshi [facility] 1.2.840.114 350.1.13.58 9.2.7.2.686 [id number] [facility] 2021-05-05 14:00:00 2021-05-05 14:00:00 Outpatient DONY TAYLOR [facility] [id number] [facility] 2021-05-03 00:00:00 2021-05-03 00:00:00 Telephone Antonio Qureshi [facility] 1.2.840.114 350.1.13.58 9.2.7.2.686 [id number] [facility] 2021-05-03 00:00:00 2021-05-03 00:00:00 Telephone Antonio Qureshi [facility] 1.2.840.114 350.1.13.58 9.2.7.2.686 [id number] 2021-04-27 07:17:00 2021-04-27 07:17:00 Outpatient Elective Tim Castellon [facility] [id number] [facility] 2021-04-27 07:17:00 2021-04-27 07:17:00 Outpatient [facility] [id number] 64 [facility] 2021-04-21 00:00:00 2021-04-21 00:00:00 Orders Only Doctor Unassigned, Barre [facility] 1.840.114 350.1.13.10 4.2.7.2.686 [id number] [facility] 2021-02-15 00:00:00 2021-02-15 00:00:00 Patient Outreach Rafiq Molina [facility] 1.284.114 350.1.13.10 4.2.7.2.686 [id number] [facility] 2021-01-05 00:00:00 2021-01-05 00:00:00 Patient Secure Msg Doctor Unassigned, Barre [facility] 1.840.114 350.1.13.10 4.2.7.2.686 [id number] [facility] 2021-01-04 14:30:00 2021-01-04 14:30:00 Outpatient R NISHA MIR [facility] [id number] [facility] Results Test Description Test Time Test Comments Results Result Co mments Source STREP A RAPID 2024-01-21 00:00:00 Result [facility] OR MATEUS ONLY - [id number] 08:19:31* Test Item Value Reference Range Interpretation Comme nts RPR (Qualitative) (test code = 45036-5) Nonreactive Nonreactive Lab Interpretation (test cod e = 40997-1) Normal [facility] OR MATEUS ONLY - [id number] 08:19:31* Test Item Value Reference Range Interpretation Comme nts RPR (Qualitative) (test code = 49343-0) Nonreactive Nonreactive Lab Interpretation (test cod e = 30298-1) [facility] [id number] 06:54:42 * Test Item Value Reference Range Interpretation Comme nts HBsAg Semi-Quantitative (khurram t code = 5195-3) 0.05 Negative [facility] B Surface [id number] 06:54:42 * Test Item Value Reference Range Interpretation Comme nts HBsAg Semi-Quantitative (khurram t code = 5195-3) 0.05 Negative [facility] B Surface [id number] 06:54:42 * Test Item Value Reference Range Interpretation Comme nts HBsAg Semi-Quantitative (khurram t code = 5195-3) 0.05 Negative [facility] (D) IMMUNE [id number] 03:48:59* Test Item Value Reference Range Interpretation Comme nts RHIG CANDIDATE? (test code = 5188) No- see comment Patient is not a candidate for RhIg- Patient is Rh Positive.Performed at [facility] Blood [address] Free: [phone] No. [id number] [facility] (D) IMMUNE [id number] 03:48:59* Test Item Value Reference Range Interpretation Comme nts RHIG CANDIDATE? (test code = 5188) No- see comment Patient is not a candidate for RhIg- Patient is Rh Positive.Performed at [facility] Blood [address] [place] [address] Free: [phone] No. [id number] [facility] (D) IMMUNE [id number] 03:48:59* Test Item Value Reference Range Interpretation Comme nts RHIG CANDIDATE? (test code = 5188) No- see comment Patient is not a candidate for RhIg- Patient is Rh Positive.Performed at [facility] Blood [place] [address]Toll Free: [phone] No. [id number] [facility] WITH [id number] 21:53:15* Test Item Value Reference Range Interpretation Comme nts HIV Semi-quantitative (test code = 34899-2) 0.08 Negative MARYURI (test code = MARYURI) Non-reactive for HIV-1 antigen and HIV-1/HIV-2 antibodies. ?No laboratory evidence of HIV infection. ?Repeat in 2-4 weeks if acute HIV infection is suspected. [facility] 1/2 AG-AB WITH [id number] 21:53:15* Test Item Value Reference Range Interpretation Comme nts HIV Semi-quantitative (test code = 95053-6) 0.08 Negative MARYURI (test code = MARYURI) Non-reactive for HIV-1 antigen and HIV-1/HIV-2 antibodies. ?No laboratory evidence of HIV infection. ?Repeat in 2-4 weeks if acute HIV infection is suspected. [facility] 1/2 AG-AB WITH [id number] 21:53:15* Test Item Value Reference Range Interpretation Comme nts HIV Semi-quantitative (test code = 86628-6) 0.08 Negative MARYURI (test code = MARYURI) Non-reactive for HIV-1 antigen and HIV-1/HIV-2 antibodies. ?No laboratory evidence of HIV infection. ?Repeat in 2-4 weeks if acute HIV infection is suspected. [facility] with [id number] 21:05:03* Test Item Value Reference Range Interpretation Comme nts WBC (test code = 6690-2) 9.58 See_Comment [Automated [employer] ge] The system which generated this result transmitted reference range: 4.30 - 11.10 10*3/?L. The reference range was not used to interpret this result as normal/abnormal. RBC (test code = 789-8) 4.21 See_Comment [Automated [employer] ge] The system which generated this result transmitted reference range: 3.93 - 5.25 10*6/?L. The reference range was not used to interpret this result as normal/abnormal. HGB (test code = 718-7) 11.5 g/dL 11.6-15.0 L HCT (test code = 4544-3) 34.1 % 35.7-45.2 L MCV (test code = 787-2) 81.0 fL 80.6-95.5 MCH (test code = 785-6) 27.3 pg 25.9-32.8 MCHC (test code = 786-4) 33.7 g/dL 31.6-35.1 RDW-SD (test code = 93378-7) 39.8 fL 39.0-49.9 RDW-CV (test code = 788-0) 13.7 % 12.0-15.5 PLT (test code = 777-3) 279 See_Comment [Automated messa ge] The system which generated this result transmitted reference range: 166 - 358 10*3/?L. The reference range was not used to interpret this result as normal/abnormal. MPV (test code = 45947-0) 10.9 fL 9.5-12.9 NRBC/100 WBC (test code = 5875104724) 0.0 See_Comment [Automated me ssage] The system which generated this result transmitted reference range: 0.0 - 10.0 /100 WBCs. The reference range was not used to interpret this result as normal/abnormal. NRBC x10^3 (test code = 9117489628) See_Comment [Automated messa ge] The system which generated this result transmitted reference range: 10*3/?L. The reference range was not used to interpret this result as normal/abnormal. GRAN MAT (NEUT) % (test code = 770-8) 72.0 % IMM GRAN % (test code = 8732812097) 0.50 % LYMPH % (test code = 736-9) 19.7 % MONO % (test code = 5905-5) 7.3 % EOS % (test code = 713-8) 0.4 % BASO % (test code = 706-2) 0.1 % GRAN MAT x10^3(ANC) (test code = 8298496335) 6.89 10*3/uL 1.88-7.09 IMM GRAN x10^3 (test code = 5908410570) 0.05 10*3/uL 0.00-0.06 LYMPH x10^3 (test code = 731-0) 1.89 10*3/uL 1.32-3.29 MONO x10^3 (test code = 742-7) 0.70 10*3/uL 0.33-0.92 EOS x10^3 (test code = 711-2) 0.04 10*3/uL 0.03-0.39 BASO x10^3 (test code = 704-7) 0.01-0.07 Lab Interpretation (test code = 57204-9) Abnormal [facility] with [id number] 21:05:03* Test Item Value Reference Range Interpretation Comme nts WBC (test code = 6690-2) 9.58 See_Comment [Automated messa ge] The system which generated this result transmitted reference range: 4.30 - 11.10 10*3/?L. The reference range was not used to interpret this result as normal/abnormal. RBC (test code = 789-8) 4.21 See_Comment [Automated messa ge] The system which generated this result transmitted reference range: 3.93 - 5.25 10*6/?L. The reference range was not used to interpret this result as normal/abnormal. HGB (test code = 718-7) 11.5 g/dL 11.6-15.0 L HCT (test code = 4544-3) 34.1 % 35.7-45.2 L MCV (test code = 787-2) 81.0 fL 80.6-95.5 MCH (test code = 785-6) 27.3 pg 25.9-32.8 MCHC (test code = 786-4) 33.7 g/dL 31.6-35.1 RDW-SD (test code = 70719-0) 39.8 fL 39.0-49.9 RDW-CV (test code = 788-0) 13.7 % 12.0-15.5 PLT (test code = 777-3) 279 See_Comment [Automated messa ge] The system which generated this result transmitted reference range: 166 - 358 10*3/?L. The reference range was not used to interpret this result as normal/abnormal. MPV (test code = 39802-9) 10.9 fL 9.5-12.9 NRBC/100 WBC (test code = 6691738258) 0.0 See_Comment [Automated [employer] ssage] The system which generated this result transmitted reference range: 0.0 - 10.0 /100 WBCs. The reference range was not used to interpret this result as normal/abnormal. NRBC x10^3 (test code = 2423222737) See_Comment [Automated messa ge] The system which generated this result transmitted reference range: 10*3/?L. The reference range was not used to interpret this result as normal/abnormal. GRAN MAT (NEUT) % (test code = 770-8) 72.0 % IMM GRAN % (test code = 1409364628) 0.50 % LYMPH % (test code = 736-9) 19.7 % MONO % (test code = 5905-5) 7.3 % EOS % (test code = 713-8) 0.4 % BASO % (test code = 706-2) 0.1 % GRAN MAT x10^3(ANC) (test code = 4521417400) 6.89 10*3/uL 1.88-7.09 IMM GRAN x10^3 (test code = 0433667944) 0.05 10*3/uL 0.00-0.06 LYMPH x10^3 (test code = 731-0) 1.89 10*3/uL 1.32-3.29 MONO x10^3 (test code = 742-7) 0.70 10*3/uL 0.33-0.92 EOS x10^3 (test code = 711-2) 0.04 10*3/uL 0.03-0.39 BASO x10^3 (test code = 704-7) 0.01-0.07 Lab Interpretation (test code = 76197-5) [facility] [id number] 20:45:00 * Test Item Value Reference Range Interpretation Comme nts ABO & RH (test code = 20) AB Positive IAT (test code = 1185) Negative [facility] [id number] 20:45:00 * Test Item Value Reference Range Interpretation Comme nts ABO & RH (test code = 20) AB Positive IAT (test code = 1185) Negative [facility] [id number] 20:45:00 * Test Item Value Reference Range Interpretation Comme nts ABO & RH (test code = 20) AB Positive IAT (test code = 1185) Negative [facility]CIFIC [id number] 16:48:00* Test Item Value Reference Range Interpretation Comme nts POCT PH U (test code = 3254) n/a 5-8 POCT U LEUK EST (test code = 3263) n/a Negative - Negative POCT U NIT (test code = 3262) n/a Negative - Negati ve POCT U PROT (test code = 3259) Trace Negative - Negat joanna POCT U GLU (test code = 3256) Negative Negative - Negati ve POCT U KETONE (test code = 3258) n/a Negative - Neg ative POCT U BLD (test code = 3257) n/a Negative - Negati ve [facility] URINALYSIS W/O SPECIFIC [id number] 16:48:00* Test Item Value Reference Range Interpretation Comme nts POCT PH U (test code = 3254) n/a 5-8 POCT U LEUK EST (test code = 3263) n/a Negative - Negative POCT U NIT (test code = 3262) n/a Negative - Negati ve POCT U PROT (test code = 3259) Trace Negative - Negat joanna POCT U GLU (test code = 3256) Negative Negative - Negati ve POCT U KETONE (test code = 3258) n/a Negative - Neg ative POCT U BLD (test code = 3257) n/a Negative - Negati ve [facility] URINALYSIS W/O SPECIFIC [id number] 15:43:00* Test Item Value Reference Range Interpretation Comme nts POCT PH U (test code = 3254) n/a 5-8 POCT U LEUK EST (test code = 3263) n/a Negative - Negative POCT U NIT (test code = 3262) n/a Negative - Negati ve POCT U PROT (test code = 3259) Negative Negative - Negat joanna POCT U GLU (test code = 3256) Normal Negative - Negati ve POCT U KETONE (test code = 3258) n/a Negative - Neg ative POCT U BLD (test code = 3257) n/a Negative - Negati ve [facility] URINALYSIS W/O SPECIFIC [id number] 16:09:00* Test Item Value Reference Range Interpretation Comme nts POCT PH U (test code = 3254) na 5-8 POCT U LEUK EST (test code = 3263) na Negative - Negative POCT U NIT (test code = 3262) na Negative - Negative POCT U PROT (test code = 3259) negative Negative - Negative POCT U GLU (test code = 3256) negative Negative - Negative POCT U KETONE (test code = 3258) na Negative - Negative POCT U BLD (test code = 3257) na Negative - Negative MARYURI (test code = MARYURI) accurate developme nt and interpretation of all internal controls Lab Interpretation (test code = 58894-1) [facility] SARS-COV-2 ANTIGEN (BINAX NOW)2023-03-29 18:19:00* Test Item Value Reference Range Interpretation Comme nts POCT SARS-COV-2 ANTIGEN (khurram t code = 85825-0) Not Detected Not Detected On board controls acceptable with C Line (test code = 3574) Yes Lab Interpretation (test cod e = 49790-8) [facility] SARS-COV-2 ANTIGEN (BINAX NOW)2023-03-29 18:19:00* Test Item Value Reference Range Interpretation Comme nts POCT SARS-COV-2 ANTIGEN (khurram t code = 39176-7) Not Detected Not Detected On board controls acceptable with C Line (test code = 3574) Yes Lab Interpretation (test cod e = 04730-8) [facility] MOLECULAR [id number] 18:11:06* Test Item Value Reference Range Interpretation Comme nts POCT Molecular Strep (test c ode = 25392-1) Negative Negative Lab Interpretation (test cod e = 93787-5) [facility] MOLECULAR [id number] 18:11:06* Test Item Value Reference Range Interpretation Comme nts POCT Molecular Strep (test c ode = 56413-6) Negative Negative Lab Interpretation (test cod e = 05995-2) [facility] URINALYSIS W/O SPECIFIC [id number] 16:20:00* Test Item Value Reference Range Interpretation Comme nts POCT PH U (test code = 3254) na 5-8 POCT U LEUK EST (test code = 3263) na Negative - Negative POCT U NIT (test code = 3262) na Negative - Negative POCT U PROT (test code = 3259) trace Negative - Negative POCT U GLU (test code = 3256) negative Negative - Negative POCT U KETONE (test code = 3258) na Negative - Negative POCT U BLD (test code = 3257) na Negative - Negative MAYRURI (test code = MARYURI) accurate developme nt and interpretation of all internal controls Lab Interpretation (test code = 26891-1) Abnormal [facility] URINALYSIS W/O SPECIFIC [id number] 18:19:00* Test Item Value Reference Range Interpretation Comme nts POCT PH U (test code = 3254) n/a 5-8 POCT U LEUK EST (test code = 3263) n/a Negative - N egative POCT U NIT (test code = 3262) neg Negative - Negati ve POCT U PROT (test code = 3259) neg Negative - Negat joanna POCT U GLU (test code = 3256) n/a Negative - Negati ve POCT U KETONE (test code = 3258) n/a Negative - Neg ative POCT U BLD (test code = 3257) n/a Negative - Negati ve [facility] URINALYSIS W/O SPECIFIC [id number] 18:12:00* Test Item Value Reference Range Interpretation Comme nts POCT PH U (test code = 3254) n/a 5-8 POCT U LEUK EST (test code = 3263) n/a Negative - Negative POCT U NIT (test code = 3262) n/a Negative - Negati ve POCT U PROT (test code = 3259) Negative Negative - Negat joanna POCT U GLU (test code = 3256) Normal Negative - Negati ve POCT U KETONE (test code = 3258) n/a Negative - Neg ative POCT U BLD (test code = 3257) n/a [facility] [id number] 18:12:00* Test Item Value Reference Range Interpretation Comme nts POCT PH U (test code = 3254) n/a 5-8 POCT U LEUK EST (test code = 3263) n/a Negative - Negative POCT U NIT (test code = 3262) n/a Negative - Negati ve POCT U PROT (test code = 3259) Negative Negative - Negat joanna POCT U GLU (test code = 3256) Normal Negative - Negati ve POCT U KETONE (test code = 3258) n/a Negative - Neg ative POCT U BLD (test code = 3257) n/a Negative - Negati ve [facility] URINALYSIS W/O SPECIFIC [id number] 17:49:00* Test Item Value Reference Range Interpretation Comme nts POCT PH U (test code = 3254) 5 mg/dl 5-8 POCT U LEUK EST (test code = 3263) negative Negative - Negative POCT U NIT (test code = 3262) negative Negative - Negati ve POCT U PROT (test code = 3259) negative Negative - Negat joanna POCT U GLU (test code = 3256) negative Negative - Negati ve POCT U KETONE (test code = 3258) negative Negative - Neg ative POCT U BLD (test code = 3257) negative Negative - Negati ve [facility]OD [id number] 23:53:41 * Test Item Value Reference Range Interpretation Comme nts ABO & RH (test code = 20) AB Positive Performed at [facility] Blood [address] Free: [phone] No. [id number] IAT (test code = 1185) Negative Performed at [facility] Blood [address] Free: [phone] No. [id number] [facility] URINALYSIS W/O SPECIFIC [id number] 22:01:00* Test Item Value Reference Range Interpretation Comme nts POCT PH U (test code = 3254) n/a 5-8 POCT U LEUK EST (test code = 3263) n/a Negative - N egative POCT U NIT (test code = 3262) n/a Negative - Negati ve POCT U PROT (test code = 3259) neg Negative - Negat joanna POCT U GLU (test code = 3256) neg Negative - Negati ve POCT U KETONE (test code = 3258) n/a Negative - Neg ative POCT U BLD (test code = 3257) n/a Negative - Negati ve [facility] MOLECULAR [id number] 16:04:15* Test Item Value Reference Range Interpretation Comme nts POCT Molecular FluA (test co de = 07240-6) Negative Negative POCT Molecular FluB (test co de = 17980-2) Negative Negative Lab Interpretation (test cod e = 38457-3) Normal [facility] MOLECULAR [id number] 16:04:15* Test Item Value Reference Range Interpretation Comme nts POCT Molecular FluA (test co de = 28322-4) Negative Negative POCT Molecular FluB (test co de = 98766-1) Negative Negative Lab Interpretation (test cod e = 57704-7) Normal [facility] URINALYSIS W/O SPECIFIC [id number] 20:50:00* Test Item Value Reference Range Interpretation Comme nts POCT PH U (test code = 3254) 5 mg/dl 5-8 POCT U LEUK EST (test code = 3263) + Negative - Negative POCT U NIT (test code = 3262) Negative Negative - Negati ve POCT U PROT (test code = 3259) Negative Negative - Negat joanna POCT U GLU (test code = 3256) Normal Negative - Negati ve POCT U KETONE (test code = 3258) Negative Negative - Neg ative POCT U BLD (test code = 3257) Negative Negative - Negati ve [facility] URINALYSIS W/O SPECIFIC [id number] 20:50:00* Test Item Value Reference Range Interpretation Comme nts POCT PH U (test code = 3254) 5 mg/dl 5-8 POCT U LEUK EST (test code = 3263) + Negative - Negative POCT U NIT (test code = 3262) Negative Negative - Negati ve POCT U PROT (test code = 3259) Negative Negative - Negat jaonna POCT U GLU (test code = 3256) Normal Negative - Negati ve POCT U KETONE (test code = 3258) Negative Negative - Neg ative POCT U BLD (test code = 3257) Negative Negative - Negati ve [facility] [id number] 13:41:00* Test Item Value Reference Range Interpretation Comme nts POCT PREG (test code = 1605) Positive On board controls acceptable with C Line (test code = 3574) Yes POCT PREG LOT # (test code = 3575) POCT PREG TEST DATE ( test code = 3576) [facility] Auto [id number] 06:20:00* Test Item Value Reference Range Interpretation Comme nts White Blood Count (test code = WBCT) 8.2 x10 3/uL 4.4-10.5 N Red Blood Count (test code = RBC) 3.85 x10 6/uL 3.75-5.20 N Hemoglobin (test code = HGBT) 11.7 g/dL 12.2-14.8 L Hematocrit (test code = HCTT) 34.8 % 36.5-44.4 L Mean Corpuscular Volume (khurram t code = MCV) 90.40 fL 80.00-100.00 N Mean Corpuscular Hemoglobin (test code = MCH) 30.4 pg 27.0-32.5 N Mean Corpuscular HGB Conc (test code = MCHC) 33.60 g/dL 32.00-37.50 N RDW Coefficient of Variation (test code = RDWCV) 12.4 % 11.5-14.5 N Platelet Count (test code = PLTT) 255.0 x10 3/uL 140.0-440.0 N Mean Platelet Volume (test code = MPV) 10.2 fL Immature Granulocytes % (Aut o) (test code = IMMGRAN%) 0.4 % 0.0-5.0 N Neutrophils % (Auto) (test code = NE%) 64.0 % 36.0-70.0 N Lymphocytes % (Auto) (test code = LY%) 25.3 % 12.0-44.0 N Monocytes % (Auto) (test cod e = MO%) 9.0 % 0.0-11.0 N Eosinophils % (Auto) (test code = EO%) 1.2 % 0.0-7.0 N Basophils % (Auto) (test cod e = BA%) 0.1 % 0.0-2.0 N Immature Granulocytes # (Aut o) (test code = IMMGRAN#) 0.03 x10 3/uL Neutrophils # (Auto) (test code = NE#) 5.3 x10 3/uL 1.6-7.4 N Lymphocytes # (Auto) (test code = LY#) 2.08 x10 3/uL 0.50-4.60 N Monocytes # (Auto) (test cod e = MO#) 0.74 x10 3/uL 0.00-1.20 N Eosinophils # (Auto) (test code = EO#) 0.10 x10 3/uL 0.00-0.74 N Basophils # (Auto) (test cod e = BA#) 0.01 x10 3/uL 0.00-0.21 N nRBC Abs (test code = NRBCA) 0 nRBC Pct (test code = NRBCP) 0 % Coronavirus PCR, COVID19 [id number] 11:15:00* Test Item Value Reference Range Interpretation Comme nts Coronavirus PCR, COVID19 Rapid (test code = SARSCOV2) For use under Emergency Use Authorization (EUA) only. Coronavirus PCR, COVID19 Rapid (test code = LCSOUPU32.1) Reference Range: Negative SARS-CoV-2 PCR Result: (test code = SARS-CoV-2 PCR Result:) Negative by PCR COVID-19 Status: AsymptomaticComplete Blood Count w/o [id number] 08:35:00* Test Item Value Reference Range Interpretation Comme nts White Blood Count (test code = WBCT) 8.9 x10 3/uL 4.4-10.5 N Red Blood Count (test code = RBC) 4.30 x10 6/uL 3.75-5.20 N Hemoglobin (test code = HGBT) 12.8 g/dL 12.2-14.8 N Hematocrit (test code = HCTT) 37.5 % 36.5-44.4 N Mean Corpuscular Volume (khurram t code = MCV) 87.20 fL 80.00-100.00 N Mean Corpuscular Hemoglobin (test code = MCH) 29.8 pg 27.0-32.5 N Mean Corpuscular HGB Conc (test code = MCHC) 34.10 g/dL 32.00-37.50 N RDW Coefficient of Variation (test code = RDWCV) 12.5 % 11.5-14.5 N Platelet Count (test code = PLTT) 310.0 x10 3/uL 140.0-440.0 N Mean Platelet Volume (test code = MPV) 10.8 fL nRBC Abs (test code = NRBCA) 0 nRBC Pct (test code = NRBCP) 0 % Rapid Plasma [id number] 08:35:00* Test Item Value Reference Range Interpretation Comme nts Rapid Plasma Reagin (test code = RPR) Non-Reactive Non-React RPR Lot: [id number] Exp: 7-83-3095SytdcdgbWelpmd ve: ReactiveWeak Reactive: ReactiveNon-reactive: Non-reactive Hepatitis B Surface [id number] 08:35:00* Test Item Value Reference Range Interpretation Comme nts Hepatitis B Surface Antigen (test code = HBSAG) Non-Reactive NonReactive SARS-COV 2 AntigenSARS-COV 2 Antigen Notes Date/Time Note Provider Source 2021-05-21 08:09:00 [id number]:09:00 [facility] [address] [place] [address] OB Discharge Summary Signed Patient: Esha Augustine Medical Record#: [id number] : 1995 Acct:[id number] Age/Sex: 25 / F Admit/Reg Date: 04/27/21 Loc: [facility] Room: BA4193-E Report Number: [id number]: Tim Castellon MD OB - Discharge Providers Primary Care Provider: Pcp-Md Berna Attending physician on admission: Tim Castellon Delivering Provider:: Tim Castellon Consults: 04/28/21 09:37 Filler Feeder Consult Routine Comment: Physician Instructions: Reason for Social Serv Consult: Demise Other Reason: 18 weeks Attending physician on discharge: Tim Castellon Discharging clinician: Tim Castellon OB - Discharge Diagnosis - Discharge Diagnosis (1) Missed Status: Acute OB - Discharge Summary Date of Admit: 04/27/21 08:40 Date of Encounter: 04/28/21 Date of Discharge: 04/28/21 Course: Esha Augustine was admitted on 04/27/21. Tim Castellon MD is the attending provider. 05/21/21 08:29 25 year old at 18.3 weeks by dates c/w undocumented 1st trimester admitted for missed AB. # Missed AB received misoprostol 800mcg loading and subsequently 400mcg q3h, went on to have a vaginal delivery of on-viable demise, see delivery note # Hx of CSx2 - G1 primary CS 2/2 PTL - G2 repeat CS no acute issues - Delivery Information Date of Delivery: 04/27/21 Type of Delivery: Sex: Female Delivery Outcome: Stillborn Blood Loss (estimated or actual): 300 - Time Spent with Patient Total time spent providing and/or coordinating discharge services: - Attending Documentation Confirm Attending Attestation: Yes Attending Attestation Statement: {I performed a history and exam on this patient and discussed management with the resident/advanced practitioner. I reviewed the resident/advanced practitioner'snote and agree with the documented findings and plan of care except as noted.} - E M Encounter Coding Labor discharge guidance: - Attestation Attestation: I have reviewed all pertinent laboratory findings. Confirm Results Attestation: Yes Results check: Pass OB - Exam - OB Exam General Appearance: NAD Neck: Non-tender Respiratory: No respiratory distress, Lungs clear Cardiovascular: R/R/R Abdomen: Soft, Non-tender, No guarding Uterus: Fundus non-tender Extremity/Musculoskeletal: Warm/Well perfused Neuro: A O x 3 Psych: Calm, No SI/HI Skin: Warm DS: Plan - Patient/Caregiver Discharge Instructions Discharge Diagnosis:: PPD # 1 s/p @ 18 weeks Condition: Good Diet: Regular Activity Restrictions: continue to observe vaginal bleeding, if any heavy or excessive bleeding, contact dr castellon or return to emergency room for care. Call dr galicia office today for follolw up appointment in 2-3weeks. Code Status: Communication Barriers None Date of Last Bowel Movement 04/27/21 Weight: 109.769 kg Patient Instructions: Loss Grieving, Understanding Miscarriage: Emotions, Understanding Miscarriage ..., Understanding Miscarriage: Recovery - Medications Prescriptions: New Ibuprofen [Motrin] 600 mg PO Q6H PRN #30 tablet PRN Reason: Mild Pain (1-3) Are you ordering a schedule II or III controlled substance?: No - Follow up Plan Follow up with: PcpMd Trujillo MD [Primary Care Provider] - Disposition: Home or Self-Care DS: Data Did Patient have any Procedures?: Yes Procedures Performed: vaginal delivery Does Patient have Pending Results?: No Result Diagrams: 04/28/21 06:20 Quality - Smoking Status Smoking Status: Never smoker [employer] - Certification for Home Care Services Home Care: No Dictated By: Tim Castellon MD Signed By: Tim Castellon MD 05/21/21 0837 DD/ 8 TD/TT: 05/21/21808 Toxicology Supervisor: NELL cc: NELL; PCPNO* Tim Castellon MD; Pcp-Md ABEL Coronel P.DSOBOB/WIRE PRODUCTS INSPECTOR Discharge GywhkqwGZJSX50Qerjmsjel, TedgvQawratbgeUujqpB4031-31-73K38:09:00P.DSOBAVAv ailable for patient azpdJDNOTOlIXTCo8465-17-79A52:38:04 [facility]
[2024-03-05] MEDS ORDERED: ACETAMINOPHEN 500 MG TAB ONE (19:47)
[2024-03-05] MEDS ORDERED: NA CHLORIDE 0.9% 1,000 ML ONE (19:47)
[2024-03-05] MEDS ORDERED: NA CHLORIDE 0.9% 2,000 ML ONE (19:54)
[2024-03-05 19:55] LABS: Absolute Lymphocytes (CBC) 0.6 K/uL (0.7-4.9); Absolute Monocytes 0.4 K/uL (0.1-1.3); Absolute Neutrophil 3.8 K/uL (1.8-8.0); Basophils % 0.4 % (0-1.3); Eosinophils % 0.4 % (0-4.4); Hematocrit 35.5 % (36.0-45.0); Hemoglobin 12.1 g/dL (12.0-15.0); MCH 27.6 pg (27.0-35.0); MCHC 34.1 g/dL (32.0-36.0); MCV 80.9 fL (80-100); MPV 8.2 fL (7.6-11.3); Monocytes % 7.4 % (3.3-12.3); Neutrophils % 79.8 % (41.7-73.7); Nucleated Red Blood Cells % 0.1 % (0-0); Platelets 225 thou/uL (152-406); RBC Red Blood Cell Count 4.39 M/uL (3.86-4.86); Red Cell Distribution Width 14.3 % (12.1-15.2)
[2024-03-05 19:59] LABS: PTT, Activated Partial Thromb 38.9 SECONDS (24.3-36.9); Protime INR 1.28
[2024-03-05 20:06] LABS: Albumin 3.4 g/dL (3.4-5.0); Albumin/Globulin Ratio 0.7 (1.1-1.8); Anion Gap 10.3 mEq/L (5.0-15.0); Bilirubin Total 0.5 mg/dL (0.2-1.0); Globulin 5.2 g/dL (2.3-3.5); Potassium 3.3 mEq/L (3.5-5.1); Protein, Total 8.6 g/dL (6.4-8.2)
[2024-03-05 20:15] LABS: SARS-CoV-2 Antigen CONTROL BLUE LINE VIS/BG OK; SARS-CoV-2 Antigen Rapid Res Negative (Negative)
[2024-03-05 20:28] LABS: Monoscreen NEG (NEG)
--- NOTE | 2024-03-05 20:29 | RAD REPORT ---
EXAM DESCRIPTION: Catarino Single View03/05/2024 7:42 pm CLINICAL HISTORY: Chest pain COMPARISON: none FINDINGS: The lungs appear clear of acute infiltrate. The heart is normal size IMPRESSION: No acute abnormalities displayed
[2024-03-05] MEDS ORDERED: IBUPROFEN 400 MG TAB ONE (21:21)
--- NOTE | 2024-03-05 22:03 | ER ---
Nurse's Notes [facility] Name: Esha River Age: 28 yrs Sex: Female : 1995 Arrival Date: 03/05/2024 Time: 18:36 Bed 3 Private MD: Diagnosis: Viral infection, unspecified Presentation: 03/05 18:43 Chief complaint: Patient states: Body aches, chills, vomiting, nauseous, fatigued, nj1 cough, congestion, fever on/off for a couple months, getting worse. Seen PCP 3 weeks ago, dx with rheumatic fever, taking penicillin. Coronavirus screen: Vaccine status: Patient reports receiving the 2nd dose of the covid vaccine. Ebola Screen: Patient denies travel to an Ebola-affected area in the 21 days before illness onset. Initial Sepsis Screen: Does the patient meet any 2 criteria? Temp <36.0*C (96.8*F)) or > 38.3*C (100.9*F). HR > 90 bpm. Yes Does the patient have a suspected source of infection? No. Patient's initial sepsis screen is negative. Risk Assessment: Do you want to hurt yourself or someone else? Patient reports no desire to harm self or others. Onset of symptoms was November 2023. 18:43 Method Of Arrival: Ambulatory [facility] 18:43 Acuity: JUSTYNA 2 nj1 Historical: - Allergies: 18:48 No Known Allergies; nj1 - PSHx: 18:48 Appendectomy; section; Cholecystectomy; nj1 - Immunization history:: Client reports receiving the 2nd dose of the Covid vaccine. - Infectious Disease History:: Denies. - Social history:: Smoking status: Patient denies any tobacco usage or history of. Screenin:26 [facility] ED Fall Risk Assessment (Adult) History of falling in the last 3 months, jb4 including since admission No falls in past 3 months (0 pts) Confusion or Disorientation No (0 pts) Intoxicated or Sedated No (0 pts) Impaired Gait No (0 pts) Mobility Assist Device Used No (0 pt) Altered Elimination No (0 pt) Score/Fall Risk Level 0 - 2 = Low Risk Oriented to surroundings, Maintained a safe environment. Abuse screen: Denies threats or abuse. Nutritional screening: No deficits noted. Tuberculosis screening: No symptoms or risk factors identified. Assessment: 19:00 General: Appears in no apparent distress. uncomfortable, Behavior is calm, cooperative, jb4 appropriate for age. Pain: Complains of pain in body aches Pain does not radiate. Pain currently is 6 out of 10 on a pain scale. Neuro: Level of Consciousness is awake, alert, obeys commands, Oriented to person, place, time, situation. Cardiovascular: Patient's skin is warm and dry. Respiratory: Airway is patent Respiratory effort is even, unlabored, Respiratory pattern is regular, symmetrical. GI: No signs and/or symptoms were reported involving the gastrointestinal system. : No signs and/or symptoms were reported regarding the genitourinary system. EENT: Throat is clear is reddened with gag reflex present. Derm: Skin is intact, Skin is pink, warm \T\ dry. Rash noted that is red, on neck. Musculoskeletal: Circulation, motion, and sensation intact. Range of motion: intact in all extremities. 20:25 Reassessment: Patient appears in no apparent distress at this time. Patient and/or jb4 family updated on plan of care and expected duration. Pain level reassessed. Patient is alert, oriented x 3, equal unlabored respirations, skin warm/dry/pink. Vital Signs: 18:43 BP 110 / 64; Pulse 136; Resp 18; Temp 103.2(O); Pulse Ox 100% ; nj1 19:23 BP 114 / 66; Pulse 129 MON; Resp 20; Temp 103.2; Pulse Ox 100% on R/A; Weight 104.78 ty kg; Height 5 ft. 4 in. ; 20:15 BP 123 / 53; Pulse 118; Resp 20; Pulse Ox 100% on R/A; jb4 21:00 BP 112 / 52; Pulse 103; Resp 20; Temp 101.2(O); Pulse Ox 99% on R/A; jb4 22:26 BP 110 / 50; Pulse 100; Resp 16; Temp 99(O); Pulse Ox 99% on R/A; jb4 19:23 Body Mass Index 39.65 (104.78 kg, 162.56 cm) ty ED Course: 18:38 Patient arrived in ED. rg4 18:38 Lyubov Sutherland FNP-C is PHCP. kb 18:38 Ludwin Jarvis is Attending Physician. kb 18:47 Triage completed. nj1 18:49 Arm band placed on right wrist. nj1 19:05 Dell Christina, RN is Primary Nurse. jb4 19:29 Radiology exam delayed due to patient is not appropriately dressed for the exam at this az time. 19:41 Chest Single View XRAY In Process Unspecified. EDMS 19:47 Strep Sent. ty 19:47 Flu Sent. ty 19:47 Blood Culture Adult (2) Sent. ty 19:47 CBC with Diff Sent. ty 19:47 CMP Sent. ty 19:47 Lactate w/ 2H reflex if indic. Sent. ty 19:47 Protime (+inr) Sent. ty 19:47 Initial lab(s) drawn, by ED staff, sent to lab. EKG done, by ED staff. Inserted saline ty lock: 20 gauge in left antecubital area, using aseptic technique. Blood collected. 22:26 Patient has correct armband on for positive identification. Bed in low position. Call jb4 light in reach. Side rails up X 1. Provided Education on: discharge instructions.. 22:26 No provider procedures requiring assistance completed. IV discontinued, intact, jb4 bleeding controlled, No redness/swelling at site. Pressure dressing applied. Administered Medications: 19:56 Drug: NS 0.9% IV (30 ml/kg) 30 ml/kg IV at bolus once; Sepsis Protocol Route: IV; Rate: jb4 bolus; Site: left antecubital; 22:25 Follow up: Response: No adverse reaction; IV Status: Completed infusion; IV Intake: jb4 2000ml ; instructed not to give the 3rd liter 19:56 Drug: Acetaminophen PO 1000 mg PO once Route: PO; jb4 22:25 Follow up: Response: No adverse reaction; Marked relief of symptoms; Temperature is jb4 decreased 21:26 Drug: Ibuprofen PO 800 mg PO once Route: PO; jb4 22:26 Follow up: Response: No adverse reaction; Marked relief of symptoms; Temperature is jb4 decreased Medication: 22:26 VIS not applicable for this client. jb4 Intake: 22:25 IV: 2000ml; Total: 2000ml. jb4 Outcome: 22:02 Discharge ordered by . jennifer 22:26 Discharged to home ambulatory, jb4 22:26 Condition: stable 22:26 Discharge instructions given to patient, Instructed on discharge instructions, follow up and referral plans. Demonstrated understanding of instructions, follow-up care, 22:27 Patient left the ED. jb4 Signatures: Dispatcher [employer] EDMS Lyubov Sutherland, BERNARDINO GERMAIN-Roz Hernandez4 Dell Christina, RN RN jb4 Ana Maria Salgado Norma RN RN nj1 Heladio Decker ty Corrections: (The following items were deleted from the chart) 18:48 18:43 Chief complaint: Patient states: Body aches, chills, vomiting, nauseous, nj1 fatigued, cough, congestion, fever on/off for a couple months, getting worse. Told by PCP she had rheumatic, taking penicillin nj1 19:48 19:23 BP 114 / 66; Pulse 129bpm Monitor; Resp 20bpm; Pulse Ox 100% RA; Temp 103.2F; ty 104.78 kg; ty
--- NOTE | 2024-03-05 22:03 | EDPHYS ---
Physician Documentation [facility] Name: Esha River Age: 28 yrs Sex: Female : 1995 Arrival Date: 03/05/2024 Time: 18:36 Bed 3 Private MD: ED Physician Ludwin Jarvis HPI: 03/05 22:20 This 28 yrs old Female presents to ER via Ambulatory with complaints of Flu kb Symptoms. 22:20 Patient is a 28-year-old female who presents for body aches, chills, vomiting, nausea, kb fatigue, cough and congestion and fever that started a month ago but is gotten worse. States PCP put her on penicillin 3 times a day for 1 month for possible rheumatic fever and she is currently at week 2.. Historical: - Allergies: 18:48 No Known Allergies; nj1 - PSHx: 18:48 Appendectomy; section; Cholecystectomy; nj1 - Immunization history:: Client reports receiving the 2nd dose of the Covid vaccine. - Infectious Disease History:: Denies. - Social history:: Smoking status: Patient denies any tobacco usage or history of. ROS: 20:20 Constitutional: As per HPI kb Exam: 20:20 Constitutional: This is a well developed, well nourished patient who is awake, alert, kb and in no acute distress. Head/Face: Normocephalic, atraumatic. ENT: Moist Mucous membranes Respiratory: Respirations even and unlabored. No increased work of breathing. Talking in full sentences Abdomen/GI: Soft, non-tender. No distention MS/ Extremity: Pulses equal, no cyanosis. Neurovascular intact. Full, normal range of motion. Neuro: Awake and alert, GCS 15, oriented to person, place, time, and situation. Moves all extremities. Normal gait. 20:20 Cardiovascular: Rate: tachycardic, 20:20 ECG was reviewed by the Attending Physician. 20:20 Skin: rash a mild rash is noted, on the chest, Vital Signs: 18:43 BP 110 / 64; Pulse 136; Resp 18; Temp 103.2(O); Pulse Ox 100% ; nj1 19:23 BP 114 / 66; Pulse 129 MON; Resp 20; Temp 103.2; Pulse Ox 100% on R/A; Weight 104.78 ty kg; Height 5 ft. 4 in. ; 20:15 BP 123 / 53; Pulse 118; Resp 20; Pulse Ox 100% on R/A; jb4 21:00 BP 112 / 52; Pulse 103; Resp 20; Temp 101.2(O); Pulse Ox 99% on R/A; jb4 22:26 BP 110 / 50; Pulse 100; Resp 16; Temp 99(O); Pulse Ox 99% on R/A; jb4 19:23 Body Mass Index 39.65 (104.78 kg, 162.56 cm) ty MDM: 18:38 Patient medically screened. kb 22:18 Differential diagnosis: viral Infection, flu, covid, mono. Data reviewed: vital signs, kb nurses notes. Consideration of Admission/Observation Escalation of care including admission/observation considered. admission considered, but pt is feeling better and has follow up with PCP tomorrow. Counseling: I had a detailed discussion with the patient and/or guardian regarding the historical points, exam findings, and any diagnostic results supporting the discharge/admit diagnosis, lab results, radiology results, the need for outpatient follow up, a family practitioner, to return to the emergency department if symptoms worsen or persist or if there are any questions or concerns that arise at home. 03/05 18:48 Order name: Blood Culture Adult (2) kb 03/05 18:48 Order name: CBC with Diff; Complete Time: 20:01 kb 03/05 18:48 Order name: CMP; Complete Time: 20:12 kb 03/05 18:48 Order name: Lactate w/ 2H reflex if indic.; Complete Time: 20:03 kb 03/05 18:48 Order name: Protime (+inr); Complete Time: 20:01 kb 03/05 18:48 Order name: Ptt, Activated; Complete Time: 20:01 kb 03/05 18:48 Order name: Flu; Complete Time: 20:17 kb 03/05 18:48 Order name: Strep; Complete Time: 20:17 kb 03/05 18:48 Order name: SARS-COV-2 Antigen Rapid; Complete Time: 20:16 kb 03/05 18:52 Order name: [place] Screen Profile; Complete Time: 20:33 kb 03/05 20:18 Order name: Throat Culture EDMS 03/05 18:48 Order name: Chest Single View XRAY; Complete Time: 20:33 kb 03/05 18:48 Order name: EKG; Complete Time: 18:48 kb 03/05 18:48 Order name: Accucheck; Complete Time: 19:42 kb 03/05 18:48 Order name: Cardiac monitoring; Complete Time: 19:42 kb 03/05 18:48 Order name: EKG - Nurse/Tech; Complete Time: 19:47 kb 03/05 18:48 Order name: IV Saline Lock - Large Bore; Complete Time: 19:42 kb 03/05 18:48 Order name: Labs collected and sent; Complete Time: 19:42 kb 03/05 18:48 Order name: O2 Per Protocol; Complete Time: 19:01 kb 03/05 18:48 Order name: O2 Sat Monitoring; Complete Time: 19:01 kb 03/05 18:48 Order name: Vital Signs; Complete Time: 19:01 kb EC:20 Rate is 129 beats/min. Rhythm is regular. QRS [place] is Normal. UT interval is normal at kb 128 msec. QRS interval is normal at 70 msec. QT interval is normal at 483 msec. Administered Medications: 19:56 Drug: NS 0.9% IV (30 ml/kg) 30 ml/kg IV at bolus once; Sepsis Protocol Route: IV; Rate: jb4 bolus; Site: left antecubital; 22:25 Follow up: Response: No adverse reaction; IV Status: Completed infusion; IV Intake: jb4 2000ml ; instructed not to give the 3rd liter 19:56 Drug: Acetaminophen PO 1000 mg PO once Route: PO; jb4 22:25 Follow up: Response: No adverse reaction; Marked relief of symptoms; Temperature is jb4 decreased 21:26 Drug: Ibuprofen PO 800 mg PO once Route: PO; jb4 22:26 Follow up: Response: No adverse reaction; Marked relief of symptoms; Temperature is jb4 decreased Disposition Summary: 03/05/24 22:02 Discharge Ordered Notes: Location: Home kb Condition: Stable kb Diagnosis - Viral infection, unspecified kb Followup: kb - With: Emergency Department - When: As needed - Reason: Worsening of condition Followup: kb - With: Private Physician - When: 2 - 3 days - Reason: Recheck today's complaints, Continuance of care, Re-evaluation by your physician Discharge Instructions: - Discharge Summary Sheet kb - Viral Illness, Adult kb Forms: - Medication Reconciliation Form kb - Thank You Letter kb - Antibiotic Education kb - Prescription Opioid Use kb - Patient Portal Instructions kb - Leadership Thank You Letter kb Signatures: Dispatcher [employer] EDMS Lyubov Sutherland, JESSA-Joshua GERMAIN-Dell Jay, RN RN jb4 Kimmie Castro, RN RN nj1 Corrections: (The following items were deleted from the chart) 18:49 18:48 BLOOD CULTURE*+BA.LAB.BRZ ordered. EDMS EDMS 18:49 18:48 CBC+H.LAB.BRZ ordered. EDMS EDMS 18:49 18:48 COMPREHENSIVE METABOLIC PANEL+C.LAB.BRZ ordered. EDMS EDMS 18:49 18:48 LACTATE+C.LAB.BRZ ordered. EDMS EDMS 18:49 18:48 PROTIME (+INR)+COAG.LAB.BRZ ordered. EDMS EDMS 18:49 18:48 PTT, ACTIVATED+COAG.LAB.BRZ ordered. EDMS EDMS 18:49 18:48 Urinalysis+U.LAB.BRZ ordered. EDMS EDMS 18:49 18:48 Influenza Screen (A \T\ B)+BA.LAB.BRZ ordered. EDMS EDMS 18:49 18:48 Group A Streptococcus Rapid Sc+BA.LAB.BRZ ordered. EDMS EDMS 18:49 18:48 SARS-COV-2 Antigen Rapid+I.LAB.BRZ ordered. EDMS EDMS 18:52 18:52 MONO SCREEN PROFILE+I.LAB.BRZ ordered. EDMS EDMS
[2024-03-06 01:45] VITALS: BP 110/50; TEMP 99; O2SAT 99
--- NOTE | 2024-03-06 17:47 | EKG ---
Test Date: 2024-03-05 Test Time: 19:17:12 Ski Patroller: VENTURA MEASUREMENT RESULTS: Intervals: Rate: 129 KS: 128 QRSD: 70 QT: 330 QTc: 483 [place]: P: 36 KS: 128 QRS: 6 T: 38 INTERPRETIVE STATEMENTS: Sinus tachycardia Nonspecific T wave abnormality Abnormal ECG No previous ECG available for comparison Electronically Signed On 03-06-24 17:46:09 CDT by Colton Torres
== END 2024-03-05 22:27 | disposition home or self-care (01) ==
LOC: ER 18:36 → SUPCPDRO 18:36 → ER 22:27
DX: B34.9 Viral infection, unspecified (principal); Z11.52 Encounter for screening for COVID-19
CPT/HCPCS: 87040 ×2; 87070; 85025; 36415; 86308; 85610; 87081; 83605; 85730; 80053; 87804 ×2; 71045; 87811; J7030 ×2; 93005